=== PATIENT | female | born 1955 | race Caucasian/White ===

== ENCOUNTER 2018-03-10 09:43 | Inpatient (IN) | payer BC, OTHER ==
[2018-03-10 10:26] LABS: Bilirubin Negative (Negative); Blood, Urine Negative (Negative); Clarity CLOUDY (Clear); Glucose, Urine (Dipstick) Negative (Negative); Leukocyte Negative (Negative); Nitrite Negative (Negative); Protein, Urine (Dipstick) 30 mg/dL (Neg-Trace); Specific Gravity, Urine 1.019 (1.002-1.036); Urobilinogen 0.2 mg/dL (0.2-1.0)
[2018-03-10 10:30] LABS: Bacteria/HPF None Seen HPF (None Seen); Hyaline Casts/LPF 4-6 HYALINE CAST LPF (0-3 Hyaline); Pathc Cast-AUWi Flag 0.43 (0-2.49); RBC/HPF 0-3 HPF (0-3); Squamous Epithelial 0-3 HPF (0-3); WBC/HPF 0-3 HPF (0-3)
[2018-03-10 10:44] LABS: Calc. Creatinine Clearance 0 mL/min (70-130)
[2018-03-10 10:48] LABS: Crystals/HPF 1+ AMORPH PHOS HPF (Negative); Renal Epithelial None Seen HPF (0-3); Transitional Epithelial NONE SEEN HPF (0-3)
[2018-03-10] MEDS ORDERED: metroNIDAZOLE 500 MG/100 ML BAG ONE (11:39)
--- NOTE | 2018-03-10 11:43 | CT ---
CT ABDOMEN AND PELVIS WITH IV CONTRAST: HISTORY: Abdominal pain, ulcerative colitis. FINDINGS: The lung bases are clear. There is free air in the abdomen. A small amount of free fluid is seen in the lower abdomen and pelvis. The liver, spleen, pancreas, adrenal glands, and right kidney are nor mal. There is a 5.5 cm cortical cyst arising from the left kidney. No calcified gallstones are seen . The small bowel loops are not abnormally dilated. Uterus is present. There is thrombus of the wall of the rectosigmoid which may be due to wall thickening or incomplete distention. There are vascular calcifications without evidence of aneurysmal dilatation of the abdominal aorta. There are degenera tive changes in the spine. IMPRESSION: 1. Pneumoperitoneum and a small amount of free fluid in the abdomen and pelvis. 2. Left renal cyst. Discussed over the telephone with ER physician, Dr. Shearer at 11:20 a.m. HEIDI REHMAN POS: KIM
[2018-03-10 11:48] LABS: Base Excess-Venous -1.8 mmol/L (0 (+/- 2.5)); Bicarbonate (HCO3v) 23.9 mmol/L (1.0-85.0); CO2 Tension (PvCO2) 43.3 mmHg (41.0-51.0); Calcium, Ionized 1.07 mmol/L (1.12-1.32); Hemoglobin - Calc 10.6 g/dL (12.0-18.0); O2 Tension (PvO2) 21.7 mmHg (35.0-45.0); Potassium 3.9 mmol/L (3.4-4.7); T. Carbon Dioxide 25.2 mmol/L (1.0-85.0); pH (Venous) 7.349 (7.35-7.45); vO2 Saturation-calc 33.5 % (94-98)
[2018-03-10 12:12] LABS: Band 25 % (5-11); Hemoglobin 10.1 g/dL (12.0-16.0); Hypochromia SLIGHT = 6-15 cells (100X) (0-5/hpf); Large Platelets SLIGHT; Lymphocytes 4 % (21-51); MDiff Complete? YES; Mean Corpuscular HGB CONC 33.7 g/dL (32.0-36.0); Mean Corpuscular Hemoglobin 32.2 pg (27.0-31.0); Mean Corpuscular Volume 95.4 fL (78.0-98.0); Monocytes 5 % (0-10); Neutrophil 66 % (42-75); PLT Morphology Comment PLT clumps seen-ADEQ; Platelet Count 452 thou/uL (130-400); Polychromasia SLIGHT = 2-3 cells (100X) (0-2/hpf); RBC Distribution Width 13.1 % (11.5-14.5); Red Blood Cell (RBC) Count 3.13 mill/uL (4.20-5.40); Vacuoles SLIGHT; White Blood Cell (WBC) Count 13.8 thou/uL (4.8-10.8)
[2018-03-10] MEDS ORDERED: Acetaminophen 1,000 MG in Premix Bag 1 BAG IVPB SCH (12:30)
[2018-03-10] MEDS ORDERED: PHENYLEPHRINE-NS 100 MCG/ML 10 ML SYRINGE ONE (13:25)
[2018-03-10] MEDS ORDERED: Lidocaine 1% PF 5 ML VIAL ONE (13:25)
[2018-03-10] MEDS ORDERED: PROPOFOL 200 MG/20 ML VIAL ONE (13:25)
[2018-03-10] MEDS ORDERED: Ketorolac Tromethamine 30 MG/ML VIAL ONE ×2 (13:25→13:28)
[2018-03-10] MEDS ORDERED: Hydrocortisone Sod Succ/PF 100 mg/2 ml Vial ONE (13:25)
[2018-03-10] MEDS ORDERED: Glycopyrrolate 0.2 MG/ML 5 ML SYRINGE ONE (13:25)
[2018-03-10] MEDS ORDERED: Ondansetron HCl/PF 4 MG/2 ML Vial ONE (13:25)
[2018-03-10] MEDS ORDERED: Fentanyl 100 MCG/2 ML VIAL ONE ×4 (13:31→18:17)
--- NOTE | 2018-03-10 13:35 | HP ---
DATE OF ADMISSION: 03/10/2018 REQUESTING PHYSICIAN: Paola Shearer MD ATTENDING SURGEON: Jcarlos Cyr DO HISTORY OF PRESENT ILLNESS: The patient is a 62-year-old woman, who has a history of ulcer ative colitis, who has been having a flare for the last 2 months. The patient also has a history of osteoarthritis, which she takes medications for. The patient therefore takes frequent steroids and n onsteroidals. She presented to the emergency department with a 1-day history of sudden acute onset o f severe abdominal pain. She denies any nausea or vomiting, and her diarrhea related to her UC was u nchanged. She underwent evaluation and examination here and was noted to have pneumoperitoneum likel y from a duodenal source, but it was unclear. Regardless, we were asked to evaluate the patient for surgical intervention. The patient denies fevers and was otherwise in her normal state of health. ALLERGIES: CECLOR, LORTAB, and CODEINE. CURRENT MEDICATIONS: Tylenol, albuterol, alendronate, Imuran, calcium, gabapentin, magnesium, Meloxi cam, prednisone, psyllium, Spiriva, Symbicort, tramadol, trazodone, and a multivitamin. PAST MEDICAL HISTORY: COPD, ulcerative colitis, osteoarthritis, and sleep apnea. PAST SURGICAL HISTORY: Ray resection of the right index finger, laminectomy of multiple levels, and tubal ligation. SOCIAL HISTORY: The patient lives independently. She denies drug, alcohol, or tobacco use. REVIEW OF SYSTEMS: A 10-point review of systems is negative, unless otherwise stated. PHYSICAL EXAMINATION: VITAL SIGNS: Blood pressure 103/53, heart rate 89, respirations 16, oxygen saturation 95% on room ai r, and temperature is 98.8. GENERAL: The patient is resting comfortably in bed. She appears in no distress. She is awake, aler t, and oriented x3. [place] coma scale is 15. HEENT: Head is normocephalic, atraumatic. Eyes: Extraocular motion intact, PERRLA bilaterally. Ea rs are atraumatic without discharge. Oropharynx is clear. Nose is atraumatic without discharge. NECK: Nontender. Trachea is midline. No JVD, no lymphadenopathy. LUNGS: Clear to auscultation with good inspiratory and expiratory effort, though the patient does co mplain of abdominal pain with deep inspiration. HEART: Regular rate and rhythm. ABDOMEN: Soft, flat with generalized tenderness to palpation, more so on the right side. PELVIS: Stable. EXTREMITIES: Neurovascularly intact x4. Strength is 5/5. BACK: Atraumatic and nontender. LABORATORY FINDINGS: White blood cell count 13.8, hemoglobin 10.1, hematocrit 29.9, platelets 452, b ands 25. Sodium 146, CO2 of 16, BUN 10, creatinine 0.46, total bilirubin 0.2, total protein 1.9, alb umin 1.2, alkaline phosphatase 18, AST 5, ALT less than 7. Lactic acid 1.0. Urinalysis is negative for rbc's or wbc's. RADIOGRAPHIC FINDINGS: CT of the abdomen and pelvis with IV contrast shows pneumoperitoneum and a sm all amount of free fluid in the abdomen and pelvis. Incidental finding of a left renal cyst. ASSESSMENT AND PLAN: 1. Acute abdominal pain. 2. Perforated viscus. Plan will be to take the patient to the operating room for exploratory laparotomy and associated proc edures. The patient was consented for procedures ranging from repair of small perforated ulcer to co lectomy. The patient will also have an NG tube and Dobbhoff placement in the operating room. The pa tient will postoperatively be moved to the critical care unit for close observation. The evaluation and examination were done with Dr. Cyr in the emergency department.
[2018-03-10 14:18] LABS: Chloride 104 mmol/L (98-107); Potassium 4.1 mmol/L (3.5-5.1); Sodium 135 mmol/L (136-145)
[2018-03-10 14:19] LABS: Anion Gap 11 mmol/L (10-20); Carbon Dioxide 24 mmol/L (23-31)
[2018-03-10 14:20] LABS: BUN (Urea Nitrogen) 23 mg/dL (9.8-20.1); Estimated GFR-MDRD 41
[2018-03-10 14:21] LABS: Bilirubin, Total 0.6 mg/dL (0.2-1.2); Calcium 8.2 mg/dL (7.8-10.44); Glucose 109 mg/dL (80-115); Protein, Total 5.2 g/dL (6.0-8.3)
[2018-03-10 14:22] LABS: Albumin 3.1 g/dL (3.4-4.8); Globulin 2.1 g/dL (2.4-3.5)
[2018-03-10 14:23] LABS: Alkaline Phosphatase 47 U/L (40-150)
[2018-03-10 14:24] LABS: ALT (SGPT) 11 U/L (8-55); AST (SGOT) 9 U/L (5-34)
[2018-03-10] MEDS ORDERED: Midazolam HCl 2 mg/2 ml Vial ONE (14:46)
[2018-03-10] MEDS ORDERED: ISOVUE-370 76%-LOCM 1 ML ONE (14:54)
[2018-03-10] MEDS ORDERED: Bupivacaine/Epinephrine 0.25% 30 ML VIAL ONE (14:56)
[2018-03-10] MEDS ORDERED: HYDROmorphone 0.5 MG/0.5 ML SYRINGE ONE ×2 (15:09→19:26)
[2018-03-10] MEDS ORDERED: Clindamycin/D5W 900 mg/50 ml Premix Bag ONE (15:54)
[2018-03-10] MEDS ORDERED: Promethazine HCl 25 MG/ML VIAL IM PRN ×2 (19:18→20:47)
[2018-03-10] MEDS ORDERED: Promethazine HCl 25 MG/ML VIAL SLOW IVP PRN (19:18)
[2018-03-10] MEDS ORDERED: Ondansetron HCl/PF 4 MG/2 ML Vial IVP PRN ×2 (19:18→20:47)
--- NOTE | 2018-03-10 19:48 | RAD ---
KUB: 03/10/18 COMPARISON: None. HISTORY: Evaluate Dobhoff tube. FINDINGS/IMPRESSION: Evaluation is markedly limited secondary to significant motion artifact. There is curvilinear radiopa que tubing overlying the imaged lower pelvis. There is also tubing overlying the midline abdomen in t he left upper quadrant, likely representing the Dobhoff tube. This may be within an enlarged stomach or could be in the proximal small bowel. Perhaps repeat imaging with decreased patient motion could b renetta assess the Dobhoff tube. POS: KIM
[2018-03-10] MEDS ORDERED: Ondansetron ODT 4 MG TAB PO PRN (20:47)
[2018-03-10] MEDS ORDERED: diphenhydrAMINE 50 MG/ML VIAL IVP PRN (20:47)
[2018-03-10] MEDS ORDERED: Communication Order-Pharmacy FS SCH (20:47)
[2018-03-10] MEDS ORDERED: diphenhydrAMINE 25 MG CAP PO PRN (20:47)
[2018-03-10] MEDS ORDERED: diphenhydrAMINE 50 MG/ML VIAL IM PRN (20:47)
[2018-03-10] MEDS ORDERED: Dextrose 5% in Water 1,000 ML IV PRN (20:47)
[2018-03-10] MEDS ORDERED: hydrALAZINE 20 MG/ML VIAL SLOW IVP PRN (20:47)
[2018-03-10] MEDS ORDERED: Naloxone HCl 0.4 mg/ml Vial IV PRN (20:47)
[2018-03-10] MEDS ORDERED: Dextrose 50% Abboject 50 ML SYRINGE SLOW IVP PRN (20:47)
[2018-03-10] MEDS: HYDROmorphone 10 mg/100 ml CADD IVPB PRN (21:06)
[2018-03-10] MEDS: MEROPENEM 1 GM/50 ML 1 GM in Premix Bag 1 BAG IVPB SCH (21:55)
[2018-03-10] MEDS: Lactated Ringer's 1,000 ML IV SCH (21:55)
[2018-03-10] MEDS: Hydrocortisone Sod Succ/PF 100 mg/2 ml Vial IVP SCH (21:56)
[2018-03-10] MEDS: Famotidine/PF 20 mg/2ml Vial SLOW IVP SCH (21:56)
[2018-03-10 22:17] VITALS: BMI 34.9
--- NOTE | 2018-03-10 22:31 | OP ---
DATE OF OPERATION: 03/10/2018 PREOPERATIVE DIAGNOSES: 1. Perforated viscus. 2. Acute peritonitis secondary to #1. 3. Severe sepsis. POSTOPERATIVE DIAGNOSES: 1. Perforated viscus. 2. Acute peritonitis secondary to #1. 3. Severe sepsis. 4. Perforated sigmoid colon of undetermined etiology. OPERATIONS PERFORMED: 1. Exploratory laparotomy. 2. Sigmoidectomy with end colostomy. 3. Abdominal washout and drainage of pelvic abscess. 4. Placement of feeding nasojejunal tube. SURGEON: Jcarlos Cyr D.O. ANESTHESIA: General endotracheal. ESTIMATED BLOOD LOSS: 100 mL FLUIDS GIVEN: 1500 mL crystalloids. URINARY OUTPUT: 250 mL COUNTS: Sponge and instrument count certified as correct x2. COMPLICATIONS: None apparent. INDICATIONS FOR PROCEDURE: A 62-year-old woman with history of ulcerative colitis on high dose chronic glucocorticoid therapy as well as Imuran. The patient presented with a sudden onset sev ere abdominal pain of 48-hour duration. This is associated now with hypotension requiring large volu me fluid resuscitation in the emergency department. CT scan of the abdomen and pelvis was obtained w hich revealed a pneumoperitoneum, etiology uncertain. Clinical examination was consistent with sever e sepsis and acute peritonitis. The patient was brought to the operating room for exploration. DESCRIPTION OF PROCEDURE: Informed consent obtained from the patient who was brought to the operatin g room and placed in spine position. Following general anesthesia, Kunz catheter was inserted and p laced bedside drain. A nasogastric tube was inserted and placed to wall suction. Abdomen was steril chelsie prepped and draped in usual fashion. Midline incision was made using #10 scalpel. The incision was carried through subcutaneous tissues maintaining hemostasis using thermocautery. Fascia was inci sed in midline exposing the peritoneum beneath which was grasped x2 with hemostats. Peritoneal cavit y was sharply entered using Metzenbaum scissors. Incision was then extended superiorly and inferiorl y. Bookwalter retractor was put in place to gain exposure. Large amount of cloudy ascitic fluid was evacuated from the peritoneal cavity using suction. Small bowel was then run from ligament of Treit z down to terminal ileum. Although I did not find any pathology with respect to the small bowel, the re was extensive amount of fibrinous exudates in the mesentery of small intestine. Large intestine w as then inspected from the cecum through the ascending, transverse, descending colon down to the leve l of the sigmoid colon where a 3-mm perforation is noted in the lateral aspect of the sigmoid colon. There was a slow leak of liquid stool from this area. Contamination was controlled using a figure-o f-eight stitch of 2-0 silk. Large amount of purulent pus was evacuated from the pelvis after culture s were taken. The abdominal cavity was then copiously irrigated clear with saline solution. I palpated the liver f ree of any masses. Normal gallbladder noted in the usual anatomic location devoid of stones. Av ect atic spleen was noted in the left upper quadrant. No masses palpated. Previous nasogastric tube was palpated within the gastric lumen. At this juncture, feeding nasojejunal tube was inserted by Nieves prakash, tip of which was palpated myself within the gastric lumen. I then manipulated the tip of this catheter into proximal small bowel without resistance. I decided to proceed with sigmoidectomy due to this patient's known history of chronic steroid therapy. I suspected that washout of this suspect ed perforated diverticulum may fail conservative management. Especially since the patient has been k nown with ulcerative colitis of many years, malignancy could not be excluded. Therefore, I decided t o proceed with a sigmoidectomy. At this juncture, the left colon was mobilized along the white line of Toldt. I continued dissection towards the pelvis. I then made a rent through the mesorectum just before the peritoneal reflection. Through this, a contour stapler was then introduced and the bowel was divided. A reload of the contour stapler was then used to divide the bowel at the junction of t he sigmoid colon and descending colon. This was done after a rent was made in the descending colon m esentery. Mesentery of the specimen itself was sterilely divided using the LigaSure device with good hemostasis. This was passed off the operative field for onward transmission to pathology. Finding no other pathology, exploration was terminated. A core incision was made in the left lower quadrant using a #10 scalpel. The incision was carried down to the level of the fascia. A crucifix incision was made on the fascia. I then introduced a tonsil clamp through this. This was advanced into the p eritoneal cavity. This defect was dilated to 3 fingerbreadths. A [place] forceps was then introduce d into the peritoneal cavity through this core defect grasping the staple end of the descending colon which was pulled through and secured within the abdominal cavity using 3-0 silk suture at 3 points. All sponges and instruments were removed and accounted for. I then placed 2 stay sutures at both ap ices of the rectal stump using 2-0 Prolene. I placed one sheet of Seprafilm in the deep pelvis and r eturned small bowel to normal anatomic location. Another sheet of Seprafilm was placed over the smal l bowel before omentum was drawn over the remainder of the viscera. Fascia was approximated in the m idline using a running stitch of #1 single stranded PDS. Subcutaneous tissues were pulse lavaged wit h 3 liters of sterile saline. With fresh gown, gloves, subcutaneous tissues were approximated using interrupted sutures of 2-0 Vicryl. Skin incision was closed using running stitch of 3-0 Monocryl sut ure in subcuticular fashion. Dermabond was applied over the incision. I then turned my attention to the ostomy site. Staple end of the bowel was excised and a functional Noelle colostomy was perfecte d using interrupted sutures of 2-0 chromic. Ostomy appliance was then put in place. Patient tolerat ed the operation without any apparent complication and was returned to recovery room in satisfactory condition.
[2018-03-10] MEDS: Ketorolac Tromethamine 30 MG/ML VIAL IVP SCH (23:52)
[2018-03-11 05:25] LABS: Anion Gap 10 mmol/L (10-20); BUN (Urea Nitrogen) 17 mg/dL (9.8-20.1); Calc. Creatinine Clearance 94 mL/min (70-130); Calcium 8.2 mg/dL (7.8-10.44); Carbon Dioxide 28 mmol/L (23-31); Chloride 104 mmol/L (98-107); Estimated GFR-MDRD 64; Glucose 131 mg/dL (80-115); Magnesium 2.2 mg/dL (1.6-2.6); Phosphorus 3.4 mg/dL (2.3-4.7); Potassium 4.6 mmol/L (3.5-5.1); Sodium 137 mmol/L (136-145)
[2018-03-11] MEDS: Hydrocortisone Sod Succ/PF 100 mg/2 ml Vial IVP SCH ×3 (05:47→22:15)
[2018-03-11] MEDS: Lactated Ringer's 1,000 ML IV SCH ×3 (05:47→18:23)
[2018-03-11] MEDS: Acetaminophen 1,000 MG in Premix Bag 1 BAG IVPB SCH ×4 (05:48→18:08)
[2018-03-11] MEDS: MEROPENEM 1 GM/50 ML 1 GM in Premix Bag 1 BAG IVPB SCH ×3 (05:48→22:21)
[2018-03-11] MEDS: Ketorolac Tromethamine 30 MG/ML VIAL IVP SCH ×3 (05:48→18:09)
[2018-03-11 06:00] LABS: Band 45 % (5-11); Elliptocytes SLIGHT = 2-5 cells (100X) (0-1/hpf); Hemoglobin 9.9 g/dL (12.0-16.0); Lymphocytes 2 % (21-51); MDiff Complete? YES; Mean Corpuscular HGB CONC 32.2 g/dL (32.0-36.0); Mean Corpuscular Hemoglobin 31.2 pg (27.0-31.0); Mean Corpuscular Volume 96.8 fL (78.0-98.0); Mean Platelet Volume 6.4 fL (7.4-10.4); Metamyelocyte 1 % (0-0); Monocytes 4 % (0-10); Neutrophil 48 % (42-75); PLT Morphology Comment Appears Increased; Platelet Count 462 thou/uL (130-400); Red Blood Cell (RBC) Count 3.16 mill/uL (4.20-5.40); White Blood Cell (WBC) Count 11.6 thou/uL (4.8-10.8)
[2018-03-11] MEDS: Famotidine/PF 20 mg/2ml Vial SLOW IVP SCH ×2 (09:06→22:12)
[2018-03-11] MEDS: Enoxaparin Sodium 40 MG/0.4 ML SYRINGE SC SCH ×2 (09:08→12:20)
[2018-03-11] MEDS ORDERED: Ipratropium Bromide 2.5 ml Neb NEB PRN (13:06)
[2018-03-11] MEDS: Mometasone 100 MCG HFA INHALER INH SCH (19:30)
[2018-03-11] MEDS: traZODone HCl 50 MG TAB PO SCH (22:12)
[2018-03-11] MEDS: Gabapentin 300 MG CAP PO SCH (22:12)
[2018-03-11] MEDS: azaTHIOprine 50 MG TAB PO SCH (22:12)
[2018-03-12] MEDS: Ketorolac Tromethamine 30 MG/ML VIAL IVP SCH ×5 (01:07→23:09)
[2018-03-12] MEDS: Acetaminophen 1,000 MG in Premix Bag 1 BAG IVPB SCH ×5 (01:10→18:53)
[2018-03-12] MEDS: Lactated Ringer's 1,000 ML IV SCH ×3 (05:40→23:17)
[2018-03-12] MEDS ORDERED: Acetaminophen 1,000 MG in Premix Bag 1 BAG IVPB SCH ×2 (06:30→22:30)
[2018-03-12] MEDS: Hydrocortisone Sod Succ/PF 100 mg/2 ml Vial IVP SCH ×3 (06:32→23:04)
[2018-03-12] MEDS: MEROPENEM 1 GM/50 ML 1 GM in Premix Bag 1 BAG IVPB SCH ×3 (06:37→22:42)
[2018-03-12] MEDS: Mometasone 100 MCG HFA INHALER INH SCH ×2 (07:07→19:10)
[2018-03-12] MEDS: Gabapentin 300 MG CAP PO SCH ×2 (10:41→22:32)
[2018-03-12] MEDS: Lactinex Tablet PO SCH (10:41)
[2018-03-12] MEDS: azaTHIOprine 50 MG TAB PO SCH ×2 (10:42→22:32)
[2018-03-12] MEDS: Famotidine/PF 20 mg/2ml Vial SLOW IVP SCH ×2 (10:42→22:33)
[2018-03-12] MEDS: HYDROmorphone 10 mg/100 ml CADD IVPB PRN (11:10)
--- NOTE | 2018-03-12 15:25 | PRG-2 ---
DATE OF SERVICE: 03/12/2018 SUBJECTIVE: This is a 62-year-old woman with history of ulcerative colitis, status post exploratory laparotomy, sigmoidectomy with end colostomy, abdominal washout and drainage of pelvic abscess, place ment of feeding nasojejunal tube due to perforated viscus, acute peritonitis resulting in severe seps is. The patient is doing much better today and is motivated to get out of bed and walk. Reports pain has been well controlled and has no new complaints. She has been n.p.o. OBJECTIVE: VITAL SIGNS: Temperature 97.6, pulse 86, respirations 18, 95% on room air, 134/86 blood pressure. LABORATORY DATA: No new labs today. Microbiology report shows preliminary E. coli from abdominal fl uid. Blood cultures preliminary no growth at 48 hours. PHYSICAL EXAMINATION: GENERAL: Patient in no acute distress, resting comfortably in bed. HEENT: Normocephalic, atraumatic. Nasojejunal and nasogastric tubes in place. LUNGS: Clear to auscultation bilaterally, no increased work of breathing. HEART: Regular rate and rhythm. No murmur. ABDOMEN: Soft, appropriately tender, wounds healing well. Colostomy site is edematous as expected, but healing well and as expected. ASSESSMENT: 1. Status post exploratory laparotomy with sigmoidectomy with end colostomy, abdominal washout and d rainage of pelvic abscess, placement of feeding nasojejunal tube, postop day #2. 2. History of ulcerative colitis. 3. Perforated viscus, sigmoid colon with resulting in acute peritonitis, resolved. 4. Normocytic anemia, stable. PLAN: We will continue to monitor labs. The patient is healing well and was encouraged to work with physical therapy and occupational therapy for recovery. Nasogastric tube was removed in the room. Nasojejunal feeding tube was put in place and retaped. The patient moved to clear liquids as tolerat ed along with Ensure supplements. Continue current pain management regimen. The patient was seen and examined with Dr. Cyr who helped formulate the plan as noted above and is in agreement.
[2018-03-12 17:33] LABS: Hemoglobin 6.8 g/dL (12.0-16.0); Mean Corpuscular HGB CONC 32.4 g/dL (32.0-36.0); Mean Corpuscular Hemoglobin 31.3 pg (27.0-31.0); Mean Corpuscular Volume 96.4 fL (78.0-98.0); Mean Platelet Volume 6.2 fL (7.4-10.4); Platelet Count 446 thou/uL (130-400); RBC Distribution Width 12.9 % (11.5-14.5); Red Blood Cell (RBC) Count 2.18 mill/uL (4.20-5.40); White Blood Cell (WBC) Count 11.7 thou/uL (4.8-10.8)
[2018-03-12 17:38] LABS: INR-International Normal Ratio 1.2; PTT 29.5 SEC (22.9-36.1)
[2018-03-12 17:49] LABS: Band 29 % (5-11); Eosinophils 2 % (0-10); Lymphocytes 3 % (21-51); MDiff Complete? YES; Monocytes 2 % (0-10); Neutrophil 64 % (42-75); PLT Morphology Comment Appears Increased; Polychromasia SLIGHT = 2-3 cells (100X) (0-2/hpf)
[2018-03-12 17:55] LABS: CKMB 0.7 ng/mL (0-6.6); Troponin I Less than 0.010 ng/mL (< 0.028)
[2018-03-12] MEDS ORDERED: Sodium Chloride 0.9% 500 ML IV SCH (18:00)
[2018-03-12] MEDS ORDERED: Lactated Ringer's 500 ML IV SCH (18:00)
[2018-03-12 18:16] LABS: Anion Gap 13 mmol/L (10-20); BUN (Urea Nitrogen) 17 mg/dL (9.8-20.1); Calc. Creatinine Clearance 88 mL/min (70-130); Calcium 7.7 mg/dL (7.8-10.44); Carbon Dioxide 21 mmol/L (23-31); Chloride 106 mmol/L (98-107); Estimated GFR-MDRD 60; Glucose 133 mg/dL (80-115); Magnesium 2.3 mg/dL (1.6-2.6); Phosphorus 1.5 mg/dL (2.3-4.7); Potassium 3.6 mmol/L (3.5-5.1); Sodium 136 mmol/L (136-145)
[2018-03-12] MEDS ORDERED: Potassium Phosphate 30 MMOL in Sodium Chloride 0.9% 250 ML 250 ML IVPB SCH ×2 (18:30→22:30)
[2018-03-12] MEDS: traZODone HCl 50 MG TAB PO SCH (22:39)
[2018-03-13 05:48] LABS: Anion Gap 10 mmol/L (10-20); BUN (Urea Nitrogen) 20 mg/dL (9.8-20.1); Calc. Creatinine Clearance 102 mL/min (70-130); Calcium 7.8 mg/dL (7.8-10.44); Carbon Dioxide 26 mmol/L (23-31); Chloride 104 mmol/L (98-107); Estimated GFR-MDRD 71; Glucose 119 mg/dL (80-115); Magnesium 2.4 mg/dL (1.6-2.6); Phosphorus 2.3 mg/dL (2.3-4.7); Potassium 4.3 mmol/L (3.5-5.1); Sodium 136 mmol/L (136-145)
[2018-03-13] MEDS: Hydrocortisone Sod Succ/PF 100 mg/2 ml Vial IVP SCH ×3 (06:21→21:41)
[2018-03-13] MEDS: Acetaminophen 1,000 MG in Premix Bag 1 BAG IVPB SCH ×3 (06:23→17:57)
[2018-03-13] MEDS: MEROPENEM 1 GM/50 ML 1 GM in Premix Bag 1 BAG IVPB SCH ×3 (06:25→21:41)
[2018-03-13] MEDS: Lactated Ringer's 1,000 ML IV SCH ×2 (06:30→17:56)
[2018-03-13] MEDS: Mometasone 100 MCG HFA INHALER INH SCH ×2 (06:34→19:35)
[2018-03-13 06:44] LABS: Band 19 % (5-11); Hemoglobin 7.5 g/dL (12.0-16.0); Hypochromia SLIGHT = 6-15 cells (100X) (0-5/hpf); Lymphocytes 5 % (21-51); MDiff Complete? YES; Mean Corpuscular HGB CONC 32.9 g/dL (32.0-36.0); Mean Platelet Volume 6.4 fL (7.4-10.4); Monocytes 2 % (0-10); Neutrophil 74 % (42-75); PLT Morphology Comment Appears Increased; Platelet Count 414 thou/uL (130-400); RBC Distribution Width 13.2 % (11.5-14.5); Red Blood Cell (RBC) Count 2.43 mill/uL (4.20-5.40); White Blood Cell (WBC) Count 10.4 thou/uL (4.8-10.8)
[2018-03-13] MEDS: Famotidine/PF 20 mg/2ml Vial SLOW IVP SCH ×2 (08:17→21:41)
[2018-03-13] MEDS: Gabapentin 300 MG CAP PO SCH ×2 (10:49→21:41)
[2018-03-13] MEDS: Lactinex Tablet PO SCH (10:49)
[2018-03-13] MEDS: azaTHIOprine 50 MG TAB PO SCH ×2 (10:49→21:41)
[2018-03-13] MEDS: Enoxaparin Sodium 40 MG/0.4 ML SYRINGE SC SCH (12:42)
--- NOTE | 2018-03-13 18:41 | PRG ---
DATE OF SERVICE: 03/13/2018 SUBJECTIVE: Ms. Liu is a 62-year-old woman who is postoperative day #3 status post Olu's proce dure. The patient had a bout of a large output bloody drainage from the Yaw-Baker drain this mor jason, which was spontaneous. This was associated with low blood pressure which responded to fluids a nd blood transfusion. At the time of my evaluation, patient is awake and alert. Reports adequate pa in control. She reports incisional pain but denies any nausea or vomiting. Urinary output is curren tly adequate. OBJECTIVE: VITAL SIGNS: Includes blood pressure is 114/80, pulse is 94, respiratory rate is 18, temperature is 97.9 degrees Fahrenheit, oxygen saturation 98% on room air. HEART: Reveals regular rate and rhythm, no murmurs or gallops auscultated. CHEST: Clear to auscultation bilaterally. Her breathing is regular and unlabored. ABDOMEN: Soft, nondistended. Her incision is intact, clean, and dry. She has no rebound tenderness present. Yaw-Baker drainage currently is low volume serosanguineous fluid. Colostomy is viable with gas, no stool. LABORATORY DATA: CBC with 10,400 white blood cells, hemoglobin and hematocrit 7.5 and 22.8 respectiv chelsie. Platelet count is 414,000. Metabolic profile: Sodium 136, potassium is 4.3, chloride is 104, bicarbonate 26, BUN is 20, creatinine 0.82, glucose is 119. Magnesium 2.4. Phosphorus is 2.3. IMPRESSION: 1. Postop day #3, status post Olu's procedure. The patient is otherwise hemodynamically stable . 2. Acute blood loss anemia. PLAN: 1. Transfuse the patient with 1 unit of packed red blood cells. 2. Increase activity as tolerated. Above findings and plan discussed with the patient who indicates understanding of the information giv en. I have answered her questions.
[2018-03-13] MEDS: traZODone HCl 50 MG TAB PO SCH (21:40)
[2018-03-14] MEDS: Acetaminophen 1,000 MG in Premix Bag 1 BAG IVPB SCH ×2 (00:20→05:54)
[2018-03-14] MEDS: Lactated Ringer's 1,000 ML IV SCH ×4 (00:23→23:30)
[2018-03-14] MEDS: MEROPENEM 1 GM/50 ML 1 GM in Premix Bag 1 BAG IVPB SCH ×3 (05:55→21:42)
[2018-03-14] MEDS: Hydrocortisone Sod Succ/PF 100 mg/2 ml Vial IVP SCH ×3 (05:55→21:42)
[2018-03-14] MEDS ORDERED: Alendronate Sodium 70 mg Tablet PO SCH (06:00)
[2018-03-14 07:51] LABS: #Eosinphils 0.1 thou/uL (0.0-0.7); #Lymphocytes 0.4 thou/uL (1.20-3.40); #Monocytes 0.7 thou/uL (0.11-0.59); #Neutrophils 5.6 thou/uL (1.40-6.50); %Basophils 0.3 % (0.0-1.0); %Eosinophils 1.3 % (0.0-10.0); %Lymphocytes 6.1 % (21.0-51.0); %Monocytes 9.7 % (0.0-10.0); %Neutrophils 82.7 % (42.0-75.0); Mean Corpuscular Hemoglobin 30.9 pg (27.0-31.0); Mean Corpuscular Volume 93.4 fL (78.0-98.0); Mean Platelet Volume 6.2 fL (7.4-10.4); Platelet Count 400 thou/uL (130-400); RBC Distribution Width 13.9 % (11.5-14.5); Red Blood Cell (RBC) Count 2.59 mill/uL (4.20-5.40); White Blood Cell (WBC) Count 6.8 thou/uL (4.8-10.8)
[2018-03-14] MEDS: Mometasone 100 MCG HFA INHALER INH SCH ×3 (07:59→19:15)
[2018-03-14] MEDS: Lactinex Tablet PO SCH (08:34)
[2018-03-14] MEDS: Famotidine/PF 20 mg/2ml Vial SLOW IVP SCH ×2 (08:34→21:41)
[2018-03-14] MEDS: Gabapentin 300 MG CAP PO SCH ×2 (08:35→21:41)
[2018-03-14] MEDS: azaTHIOprine 50 MG TAB PO SCH ×2 (08:35→21:41)
[2018-03-14 08:44] LABS: Anion Gap 10 mmol/L (10-20); BUN (Urea Nitrogen) 13 mg/dL (9.8-20.1); Calc. Creatinine Clearance 114 mL/min (70-130); Calcium 8.6 mg/dL (7.8-10.44); Carbon Dioxide 27 mmol/L (23-31); Chloride 106 mmol/L (98-107); Estimated GFR-MDRD 81; Glucose 115 mg/dL (80-115); Magnesium 2.2 mg/dL (1.6-2.6); Phosphorus 1.2 mg/dL (2.3-4.7); Potassium 4.1 mmol/L (3.5-5.1); Sodium 139 mmol/L (136-145)
[2018-03-14] MEDS ORDERED: Sodium Phosphate 30 MMOL, Admixture Fee 1 EACH in Sodium Chloride 0.9% 500 ML IVPB SCH (09:30)
[2018-03-14] MEDS: traMADol HCl 50 MG TAB PO PRN ×2 (10:17→16:58)
[2018-03-14] MEDS: Acetaminophen 500 MG TAB PO SCH ×3 (10:24→21:58)
--- NOTE | 2018-03-14 10:31 | PQF ---
CLINICAL DOCUMENTATION IMPROVEMENT CLARIFICATION FORM: ICD-10 Updated PLEASE DO AN ADDENDUM TO THE PROGRESS NOTE WITH ANY DOCUMENTATION UPDATES OR ADDITIONS AND CARRY THROUGH TO DC SUMMARY. THANK YOU. DATE: 03/14 ATTN : DR. CLEMENTE ANTOINE Please exercise your independent, professional judgment in responding to the clarification form. Clinical indicators are provided on the bottom of this form for your review. Please check appropriate box(s): [ x ] Acute Renal Failure (ARF) / Acute Kidney Injury (LANCE) [ ] Other Etiology or underlying conditions related to the diagnosis of ARF/ LANCE: [ ] Acute on Chronic Renal Failure please specify Stage of CKD (see below) [ ] Other diagnosis [ ] Unable to determine National Kidney Foundation Guidelines for CKD Staging Stage I Kidney damage with normal or increased GFR GFR > 90 Stage II Kidney damage with mildly decreased GFR GFR 60-89 Stage III Kidney damage with moderately decreased GFR GFR 30-59 Stage IV Kidney damage with severely decreased GFR GFR 16-29 Stage V Kidney failure GFR<15 ESRD End Stage Renal Disease On dialysis For continuity of documentation, please document condition throughout progress notes and discharge summary. Thank You. CLINICAL INDICATORS - SIGNS / SYMPTOMS / LABS BUN: 23 CR: 1.32 GFR: 41 (on admit, 03/10) 17 0.89 64 (03/11) 17 0.95 60 (03/12) 20 0.82 71 (03/13) 13 0.73 81 (03/14) RISK FACTORS: HYPOTENSION ON PRESENTATION TO ER 03/10 SEVERE SEPSIS (OP REPORT 03/10) PERFORATED VISCUS W/PERITONITIS (OP REPORT 03/10) TREATMENTS: LARGE VOLUME FLUID RESUSCITATION IN ER 03/10 (3L NS) EMERGENT SIGMOIDECTOMY W/END COLOSTOMY THANK YOU! Fernanda (This form is maintained as a part of the permanent medical record) 2015 [employer]. All Rights Reserved Fernanda Mina RN, BSN [email or web address] Office: [phone] [facility] HOSPITALChetan
--- NOTE | 2018-03-14 11:47 | EKG ---
Test Reason : CODE GREEN Blood Pressure : / mmHG Vent. Rate : 094 BPM Atrial Rate : 094 BPM P-R Int : 102 ms QRS Dur : 066 ms QT Int : 344 ms P-R-T Axes : 053 062 062 degrees QTc Int : 430 ms Sinus rhythm with short AR Nonspecific ST abnormality Abnormal ECG When compared with ECG of 10-MAR-2018 10:00, (Unconfirmed) No significant change was found Confirmed by ALTAGRACIA PALOMINO ([id number]) on 03/14/2018 11:47:02 AM Referred By: STAT Confirmed By:ALTAGRACIA PALOMINO
[2018-03-14] MEDS: traZODone HCl 50 MG TAB PO SCH (21:40)
[2018-03-15] MEDS ORDERED: Cepastat Lozenges 1 LOZ PO PRN (00:17)
[2018-03-15] MEDS ORDERED: Vicks VapoRub 50 gm Jar TOP PRN (00:18)
[2018-03-15] MEDS: traMADol HCl 50 MG TAB PO PRN ×3 (04:11→16:27)
[2018-03-15] MEDS: Acetaminophen 500 MG TAB PO SCH ×4 (04:11→21:53)
[2018-03-15] MEDS: Hydrocortisone Sod Succ/PF 100 mg/2 ml Vial IVP SCH (06:39)
[2018-03-15] MEDS: MEROPENEM 1 GM/50 ML 1 GM in Premix Bag 1 BAG IVPB SCH ×3 (06:42→21:54)
[2018-03-15] MEDS: Mometasone 100 MCG HFA INHALER INH SCH ×2 (07:34→18:55)
[2018-03-15] MEDS: azaTHIOprine 50 MG TAB PO SCH ×2 (09:00→21:51)
[2018-03-15] MEDS: Lactinex Tablet PO SCH (09:00)
[2018-03-15] MEDS: Gabapentin 300 MG CAP PO SCH ×2 (09:00→21:53)
[2018-03-15] MEDS: Famotidine/PF 20 mg/2ml Vial SLOW IVP SCH ×2 (09:01→21:52)
[2018-03-15] MEDS ORDERED: Furosemide 20 MG/2 ML VIAL SLOW IVP SCH ×2 (10:00→21:00)
[2018-03-15] MEDS: Lactated Ringer's 1,000 ML IV SCH (14:30)
--- NOTE | 2018-03-15 18:35 | PRG ---
DATE OF SERVICE: 03/15/2018 ATTENDING PHYSICIAN: Dr. Jcarlos Cyr. SUBJECTIVE: Ms. Liu is a 62-year-old woman, who is postoperative day #5, status post Olu's pro cedure. She has been stable on the surgical floor. Pain has been well controlled. Small bore feedi ng tube was discontinued yesterday and she was started on regular diet which she has been tolerating well. She is ambulating without assistance. OBJECTIVE: VITAL SIGNS: Temperature is 97.9, pulse 90, respirations 16, O2 sat 96% on room air, blood pressure 173/90. GENERAL: Well-nourished, well-developed female, sitting up in bed, in no acute distress. HEENT: Atraumatic, normocephalic. CARDIOVASCULAR: Regular rate and rhythm. PULMONARY: Bilateral breath sounds clear. Respirations even and unlabored. ABDOMEN: Soft, nondistended. Surgical incision is clean, dry, and intact. Ostomy is pink and healt hy appearing with small amount of liquid stool in appliance. NEUROLOGIC: GCS 15. Awake, alert, and oriented x3. ASSESSMENT: 1. Postoperative day #5, status post Olu's procedure. 2. Acute blood loss anemia, stable. 3. Small bore feeding tube with enteral feeds discontinued one day ago. The patient tolerating regu lar diet. PLAN: 1. Encourage ambulation. 2. Wound care ostomy nurse for teaching ostomy care. 3. Lasix today x2 doses. Monitor urine output. 4. Discontinue IV fluids. 5. Continue IV antibiotics. The patient was seen and examined with Dr. Cyr, who agrees with plan.
[2018-03-15] MEDS: Docusate 100 MG CAP PO SCH (21:52)
[2018-03-15] MEDS: traZODone HCl 50 MG TAB PO SCH (21:53)
[2018-03-16] MEDS: Acetaminophen 500 MG TAB PO SCH ×4 (04:03→21:05)
[2018-03-16] MEDS: traMADol HCl 50 MG TAB PO PRN ×4 (04:18→22:41)
[2018-03-16 05:51] LABS: Anion Gap 9 mmol/L (10-20); BUN (Urea Nitrogen) 12 mg/dL (9.8-20.1); Calc. Creatinine Clearance 114 mL/min (70-130); Calcium 7.6 mg/dL (7.8-10.44); Carbon Dioxide 32 mmol/L (23-31); Chloride 102 mmol/L (98-107); Estimated GFR-MDRD 81; Glucose 88 mg/dL (80-115); Magnesium 1.9 mg/dL (1.6-2.6); Phosphorus 1.8 mg/dL (2.3-4.7); Potassium 3.2 mmol/L (3.5-5.1); Sodium 140 mmol/L (136-145)
[2018-03-16] MEDS ORDERED: predniSONE 50 MG TAB PO SCH (06:00)
[2018-03-16] MEDS: Lactinex Tablet PO SCH (06:40)
[2018-03-16] MEDS: MEROPENEM 1 GM/50 ML 1 GM in Premix Bag 1 BAG IVPB SCH ×3 (06:40→21:03)
[2018-03-16] MEDS ORDERED: Potassium Phosphate 30 MMOL in Sodium Chloride 0.9% 500 ML IVPB SCH (06:45)
[2018-03-16] MEDS ORDERED: predniSONE 20 MG TAB PO SCH ×3 (08:00→16:00)
[2018-03-16] MEDS: Mometasone 100 MCG HFA INHALER INH SCH ×2 (08:04→19:24)
[2018-03-16 09:48] LABS: Hemoglobin 9.2 g/dL (12.0-16.0); Mean Corpuscular Volume 93.9 fL (78.0-98.0); Mean Platelet Volume 5.9 fL (7.4-10.4); Platelet Count 550 thou/uL (130-400); RBC Distribution Width 14.2 % (11.5-14.5); Red Blood Cell (RBC) Count 2.97 mill/uL (4.20-5.40); White Blood Cell (WBC) Count 15.2 thou/uL (4.8-10.8)
[2018-03-16 10:05] LABS: Band 39 % (5-11); Eosinophils 3 % (0-10); Lymphocytes 1 % (21-51); MDiff Complete? YES; Monocytes 4 % (0-10); Neutrophil 53 % (42-75); Nucleated RBC 1 % (0); PLT Morphology Comment Appears Adequate; RBC Morphology Normal
[2018-03-16] MEDS: Famotidine/PF 20 mg/2ml Vial SLOW IVP SCH ×2 (10:55→18:53)
[2018-03-16] MEDS: Gabapentin 300 MG CAP PO SCH ×2 (10:55→21:04)
[2018-03-16] MEDS: Docusate 100 MG CAP PO SCH ×2 (10:55→21:04)
[2018-03-16] MEDS: azaTHIOprine 50 MG TAB PO SCH ×2 (10:55→21:05)
--- NOTE | 2018-03-16 10:55 | PRG ---
DATE OF SERVICE: 03/16/2018 ATTENDING PHYSICIAN: Dr. Jcarlos Cyr SUBJECTIVE: Ms. Liu is a 62-year-old woman who is postoperative day #6 status post Olu's proce dure. She has been stable on the surgical floor. The pain has been well controlled. Small bore fee ding tube was discontinued 2 days ago and she was started on a regular diet. She has been tolerating that well. She is ambulating without assistance. Ostomy is now putting out liquid stool. OBJECTIVE: VITAL SIGNS: Temperature 98.2, pulse 93, respirations 18, O2 sat 92% on room air, blood pressure 103 /66. GENERAL: Well-nourished, well-developed female sitting up in bed in no acute distress. HEENT: Atraumatic, normocephalic. CARDIOVASCULAR: Regular rate and rhythm. Heart sounds normal. CHEST: Bilateral breath sounds clear. Respirations even and unlabored. ABDOMEN: Soft, nondistended. Surgical incision clean, dry, and intact. Ostomy pink and healthy constantino earing with liquid stool in appliance. NEUROLOGIC: GCS 15. Awake, alert, oriented x3. LABORATORY DATA: CBC: WBC 15.2, RBC 2.97, hemoglobin 9.2, hematocrit 27.9, platelets 550. Chemistr y: Sodium 140, potassium 3.2, chloride 102, carbon dioxide 32, BUN 12, creatinine 0.73. Phosphorus 1.8, magnesium 1.9. ASSESSMENT: 1. Postoperative day #6 status post Olu's procedure. 2. Acute blood loss anemia, stable. 3. Tolerating regular diet. 4. Ambulating without assistance. 5. Hypokalemia and hypophosphatemia. PLAN: 1. Continue to encourage ambulation. 2. Wound care, ostomy nurse following for ostomy care teaching. 3. Replace electrolytes. 4. Continue vitamin C and iron. 5. Add stool softener and MiraLax. The patient was seen and examined with Dr. Cyr who agrees with the plan.
[2018-03-16] MEDS: Ascorbic Acid 500 mg Chewable Tablet PO SCH ×2 (11:00→21:04)
[2018-03-16] MEDS: Ferrous Sulfate 325 MG TAB PO SCH ×2 (11:04→18:53)
[2018-03-16] MEDS: Polyethylene Glycol 3350 17 GM Packet PO SCH (11:05)
[2018-03-16] MEDS: predniSONE 20 MG TAB PO SCH (15:04)
[2018-03-16] MEDS: traZODone HCl 50 MG TAB PO SCH (21:05)
[2018-03-17] MEDS: traMADol HCl 50 MG TAB PO PRN ×3 (04:47→17:01)
[2018-03-17] MEDS: Acetaminophen 500 MG TAB PO SCH ×3 (04:47→17:01)
[2018-03-17] MEDS: predniSONE 20 MG TAB PO SCH ×2 (04:48→15:13)
[2018-03-17] MEDS: Lactinex Tablet PO SCH (04:48)
[2018-03-17] MEDS: MEROPENEM 1 GM/50 ML 1 GM in Premix Bag 1 BAG IVPB SCH (04:49)
[2018-03-17 05:07] LABS: #Eosinphils 0.1 thou/uL (0.0-0.7); #Lymphocytes 0.8 thou/uL (1.20-3.40); #Monocytes 0.7 thou/uL (0.11-0.59); %Basophils 0.1 % (0.0-1.0); %Eosinophils 0.6 % (0.0-10.0); %Lymphocytes 7.2 % (21.0-51.0); %Monocytes 6.7 % (0.0-10.0); %Neutrophils 85.4 % (42.0-75.0); Hemoglobin 7.9 g/dL (12.0-16.0); Mean Corpuscular HGB CONC 32.3 g/dL (32.0-36.0); Mean Corpuscular Hemoglobin 30.6 pg (27.0-31.0); Mean Corpuscular Volume 94.6 fL (78.0-98.0); Platelet Count 550 thou/uL (130-400); RBC Distribution Width 14.1 % (11.5-14.5); Red Blood Cell (RBC) Count 2.57 mill/uL (4.20-5.40); White Blood Cell (WBC) Count 10.5 thou/uL (4.8-10.8)
[2018-03-17 05:43] LABS: Anion Gap 8 mmol/L (10-20); BUN (Urea Nitrogen) 13 mg/dL (9.8-20.1); Calc. Creatinine Clearance 114 mL/min (70-130); Calcium 8.3 mg/dL (7.8-10.44); Carbon Dioxide 32 mmol/L (23-31); Chloride 102 mmol/L (98-107); Estimated GFR-MDRD 81; Glucose 114 mg/dL (80-115); Magnesium 2.2 mg/dL (1.6-2.6); Phosphorus 2.6 mg/dL (2.3-4.7); Sodium 138 mmol/L (136-145)
[2018-03-17] MEDS: Mometasone 100 MCG HFA INHALER INH SCH ×2 (06:52→18:30)
[2018-03-17] MEDS: Ferrous Sulfate 325 MG TAB PO SCH ×2 (08:06→17:02)
[2018-03-17] MEDS: Ascorbic Acid 500 mg Chewable Tablet PO SCH (08:06)
[2018-03-17] MEDS: Docusate 100 MG CAP PO SCH (08:06)
[2018-03-17] MEDS: azaTHIOprine 50 MG TAB PO SCH (08:06)
[2018-03-17] MEDS: Gabapentin 300 MG CAP PO SCH (08:06)
[2018-03-17] MEDS: Famotidine/PF 20 mg/2ml Vial SLOW IVP SCH (08:06)
[2018-03-17] MEDS: Polyethylene Glycol 3350 17 GM Packet PO SCH (08:07)
[2018-03-17 15:52] VITALS: BP 139/78; TEMP 97.7
--- NOTE | 2018-03-19 13:35 | DIS ---
DATE OF ADMISSION: 03/10/2018 DATE OF DISCHARGE: 03/17/2018 ADMISSION DIAGNOSES: 1. Acute abdominal pain. 2. Perforated viscus with pneumoperitoneum. DISCHARGE DIAGNOSES: 1. Status post exploratory laparotomy with sigmoidectomy, end colostomy, abdominal washout and drain age of pelvic abscess. 2. Perforated viscus, sigmoid colon, resulting in acute peritonitis, resolved. 3. Diverticulosis. 4. History of ulcerative colitis. 5. Normocytic anemia. CONSULTANTS: None. PROCEDURES: On 03/10/2018, exploratory laparotomy, sigmoidectomy with end colostomy, abdominal washo ut and drainage of pelvic abscess with Dr. Cyr. HOSPITAL COURSE: This is a 62-year-old female, who presented to [facility] with a chief complaint of abdominal pain. She was evaluated in the emergency room and found to have pneumoperitoneum. She was taken to the operating room emergently for exploratory laparotomy. The patient did well postope ratively and was managed on the general surgical floor until 03/12/2018 when she had a code green for decreased blood pressure and mentation associated with her Dilaudid [employer]. She responded to Narcan. The patient had additionally required a blood transfusion of 1 unit PRBC on 03/12/2018 and a second u nit on 03/13/2018 after which her hemoglobin stabilized. The patient continued to improve. She ambu lated with therapy and then individually. Her ostomy was functioning and she was tolerating a genera l diet and stable for discharge on 03/19/2018. She was restarted on her home medications prior [facility] with the exception of her home steroid which was at a reduced dose in an attempt to start wea jason her intermediate steroids. The patient was instructed to follow up with her GI physician for the re mainder of the steroid wean. DISCHARGE DISPOSITION: Home. DISCHARGE CONDITION: Fair. PHYSICAL EXAMINATION: VITAL SIGNS: Temperature 97.7, pulse 81, respirations 16, O2 sat 96% on room air, blood pressure 139 /78. GENERAL: Well-developed female, in no acute distress, resting in bed. PULMONARY: Normal work of breathing, symmetric rise. CARDIOVASCULAR: Regular rate and rhythm. GASTROINTESTINAL: Abdomen is soft, nontender, nondistended. Ostomy with some gas and liquid stool i n the bag. MUSCULOSKELETAL: Moves all extremities x4. NEUROLOGIC: No focal deficit is noted. DISCHARGE INSTRUCTIONS: Discharge instructions were provided to the patient who vocalized her unders tanding prior to discharge. All questions were answered prior to discharge. She did have the opport unity to work with wound care for changing the ostomy bag and appliance. She watched the ostomy vide o. The patient was instructed to keep her midline incision clean and dry. She should not lift anyth ing greater than 20 pounds. She should avoid baths or soaking in hot tubs or pools, but may shower. DISCHARGE MEDICATIONS: The patient was discharged on her home medications and provided additionally a prescription for Ultram 50 mg q.6 hours p.r.n. for pain. The patient's home prednisone dose was ad justed to 20 mg p.o. b.i.d. FOLLOWUP APPOINTMENTS: The patient is to follow up with her primary care provider in approximately 1 week. She is to follow up with her GI physician for ulcerative colitis and steroid wean. She is to follow up with Dr. Cyr in approximately 2 weeks for wound check. This is merely a summary of the patient's hospitalization. For more in depth information, please see her medical record in its entir ety.
== END 2018-03-17 19:05 | disposition home or self-care (01) | DRG 853 ==
LOC: ERS 09:43 → SDC 16:15 → CCU 19:01 → SJJU 03-11 15:50
PROVIDERS: ADMIT Surgery; ATTEND Surgery
PROC: 0DTN0ZZ Resection of Sigmoid Colon, Open Approach (ICD-10-PCS; principal; 2018-03-10)
PROC: 0D1M0Z4 Bypass Descending Colon to Cutaneous, Open Approach (ICD-10-PCS; 2018-03-10)
PROC: 30233N1 Transfusion of Nonautologous Red Blood Cells into Peripheral Vein, Percutaneous Approach (ICD-10-PCS; 2018-03-12)
DX: A41.9 Sepsis, unspecified organism (principal); K63.1 Perforation of intestine (nontraumatic); K51.818 Other ulcerative colitis with other complication; K51.914 Ulcerative colitis, unspecified with abscess; D62 Acute posthemorrhagic anemia; N17.9 Acute kidney failure, unspecified; R65.20 Severe sepsis without septic shock; M19.90 Unspecified osteoarthritis, unspecified site; E87.6 Hypokalemia; E83.39 Other disorders of phosphorus metabolism; J44.9 Chronic obstructive pulmonary disease, unspecified; G47.33 Obstructive sleep apnea (adult) (pediatric); Z79.52 Long term (current) use of systemic steroids
CPT/HCPCS: 36415; 36416; 36430; 51701; 74018; 74177; 80048; 80053; 81003; 81015; 82330; 82553; 82803; 83605; 83735; 84100; 84484; 85025; 85060; 85610; 85730; 86850; 86900; 86901; 87040; 87070; 87077; 87186; 87205; 88307; 90471; 90732; 93005; 93010; 94640; 94664; 94760; 96361; 96365; 96374; A4353; G0009; G8978-GP-CI; G8979-GP-CH; J0131; J0360; J0744; J1170; J1650; J1720; J1885; J1940; J2001; J2185; J2250; J2270; J2310; J2405; J2704; J3010; J3490; J7050; J7500; J7506; J7620; J7644; P9016; S0028

== ENCOUNTER 2018-03-30 20:55 | Observation (INO) | payer BC ==
[2018-03-30 21:21] LABS: Hemoglobin 12.2 g/dL (12.0-16.0); Mean Corpuscular HGB CONC 32.3 g/dL (32.0-36.0); Mean Corpuscular Volume 92.8 fL (78.0-98.0); Mean Platelet Volume 6.5 fL (7.4-10.4); Platelet Count 715 thou/uL (130-400); RBC Distribution Width 14.9 % (11.5-14.5); Red Blood Cell (RBC) Count 4.06 mill/uL (4.20-5.40); White Blood Cell (WBC) Count 15.7 thou/uL (4.8-10.8)
[2018-03-30 21:37] LABS: Band 7 % (5-11); Lymphocytes 12 % (21-51); MDiff Complete? YES; Monocytes 9 % (0-10); Neutrophil 72 % (42-75)
[2018-03-30 21:39] LABS: ALT (SGPT) 17 U/L (8-55); AST (SGOT) 14 U/L (5-34); Albumin 3.6 g/dL (3.4-4.8); Alkaline Phosphatase 85 U/L (40-150); Anion Gap 11 mmol/L (10-20); BUN (Urea Nitrogen) 18 mg/dL (9.8-20.1); Bilirubin, Total 0.6 mg/dL (0.2-1.2); Calc. Creatinine Clearance 0 mL/min (70-130); Calcium 9.6 mg/dL (7.8-10.44); Carbon Dioxide 27 mmol/L (23-31); Chloride 102 mmol/L (98-107); Estimated GFR-MDRD 58; Globulin 2.9 g/dL (2.4-3.5); Glucose 115 mg/dL (80-115); Lipase 31 U/L (8-78); Protein, Total 6.5 g/dL (6.0-8.3); Sodium 136 mmol/L (136-145)
[2018-03-31] MEDS ORDERED: Ondansetron HCl/PF 4 MG/2 ML Vial ONE ×2 (01:54→04:48)
[2018-03-31] MEDS ORDERED: Benzocaine 20% Spray 60 ML CAN ONE (04:08)
[2018-03-31] MEDS ORDERED: Pantoprazole 40 MG VIAL ONE (04:08)
[2018-03-31] MEDS ORDERED: Piperacillin/Tazobactam 3.375 GM VIAL ONE (04:08)
[2018-03-31] MEDS ORDERED: Lidocaine 2% Jelly 5 ML TUBE ONE (04:08)
[2018-03-31 04:44] LABS: Bilirubin Negative (Negative); Blood, Urine Negative (Negative); Clarity CLEAR (Clear); Glucose, Urine (Dipstick) Negative (Negative); Leukocyte Small (Negative); Nitrite Negative (Negative); Protein, Urine (Dipstick) Negative (Neg-Trace); Specific Gravity, Urine 1.037 (1.002-1.036); Urobilinogen 0.2 mg/dL (0.2-1.0); pH, Urine 6.5 (5.0-9.0)
[2018-03-31 04:47] LABS: Bacteria/HPF None Seen HPF (None Seen); Hyaline Casts/LPF 0-3 HYALINE CAST LPF (0-3 Hyaline); Pathc Cast-AUWi Flag 0.14 (0-2.49); RBC/HPF 0-3 HPF (0-3); Squamous Epithelial 0-3 HPF (0-3); WBC/HPF 0-3 HPF (0-3)
[2018-03-31] MEDS ORDERED: Morphine 4 MG/ML VIAL ONE (04:48)
[2018-03-31 07:32] VITALS: BMI 32.4
[2018-03-31] MEDS: Sodium Chloride 0.9% 1,000 ML IV SCH ×2 (07:32→16:12)
--- NOTE | 2018-03-31 08:52 | CT ---
PRELIMINARY REPORT/[facility]/EMERGENTY AFTER-HOURS PROCEDURE CT Abdomen and Pelvis With Intravenous Contrast CLINICAL HISTORY: 62 years old, female; Pain; Abdominal pain; Generalized TECHNIQUE: Axial computed tomography images of the abdomen and pelvis with intravenous contrast. Coronal reforma tted images were created and reviewed. COMPARISON: No relevant prior studies available. FINDINGS: Lung bases: Lingular atelectasis and/or scarring. ABDOMEN: Liver: Normal. Gallbladder and bile ducts: Normal. Pancreas: Normal. Spleen: Normal. Adrenals: Normal. Kidneys and ureters: Simple left renal cyst measuring 5.2 cm in diameter. Stomach and bowel: Multiple loops of mildly dilated gas and fluid/stool filled mid and distal small b owel, with apparent transition to normal caliber small bowel within the left lower quadrant. Moderate wall thickening of the proximal and mid transverse colon, with minimal adjacent associated inflammatory stranding, likely infectious/inflammatory colitis. Surgical changes of prior partial lef t colectomy, with left lower quadrant colostomy. PELVIS: Appendix: See above. Bladder: Normal. Reproductive: Normal as visualized. ABDOMEN and PELVIS: Intraperitoneal space: Small amount of intraperitoneal free fluid, likely secondary to ongoing small bowel pathology. No free air. Bones/joints: Probable old, healed fracture of the left inferior pubic ramus. Multilevel thoracal bar spine degenerative changes. Evidence of prior lower thoracic spine multilevel vertebral augmentation . Levoscoliosis of the lumbar spine. No dislocation. Soft tissues: Normal. Vasculature: Normal. No abdominal aortic aneurysm. Lymph nodes: Normal. IMPRESSION: 1. Multiple loops of mildly dilated gas and fluid/stool filled mid and distal small bowel, with appar ent transition to normal caliber small bowel within the left lower quadrant. Findings most compatible with small bowel obstruction. 2. Moderate wall thickening of the proximal and mid transverse colon, with minimal adjacent associate d inflammatory stranding, likely infectious/inflammatory colitis. 3. Incidental/non-acute findings are described above. Thank you for allowing us to participate in the care of your patient. Dictated and Authenticated by: Isaac Ignacio MD 03/31/2018 3:18 AM Central Time ([place] & [place]) CT Abdomen and Pelvis With Intravenous Contrast TECHNIQUE: Axial computed tomography images of the abdomen and pelvis with intravenous contrast. Coronal reformatted images were created and reviewed. COMPARISON: No relevant prior studies available. FINDINGS: Lung bases: Lingular atelectasis and/or scarring. ABDOMEN: Liver: Normal. Gallbladder and bile ducts: Normal. Pancreas: Normal. Spleen: Normal. Adrenals: Normal. Kidneys and ureters: Simple left renal cyst measuring 5.2 cm in diameter. Stomach and bowel: Multiple loops of mildly dilated gas and fluid/stoolfilled mid and distal small mimi wel, with apparent transition to normal caliber small bowel within the left lower quadrant. Moderate wall thickening of the proximal and mid transverse colon, with minimal adjacent associated inflammato ry stranding, likely infectious/inflammatory colitis. Surgical changes of prior partial left colectom y, with left lower quadrant colostomy. PELVIS: Appendix: See above. Bladder: Normal. Reproductive: Normal as visualized. ABDOMEN and PELVIS: Intraperitoneal space: Small amount of intraperitoneal free fluid, likely secondary to ongoing small bowel pathology. No free air. Bones/joints: Probable old, healed fracture of the left inferior pubic ramus. Multilevel thoracal bar spine degenerative changes. Evidence of prior lower thoracic spine multilevel vertebral augmentation. Levoscoliosis of the lumbar spine. No dislocation. Soft tissues: Normal. Vasculature: Normal. No abdominal aortic aneurysm. Lymph nodes: Normal. IMPRESSION: 1. Multiple loops of mildly dilated gas and fluid/stool filled mid and distal small bowel, with appar ent transition to normal caliber small bowel within the left lower quadrant. Findings most compatible with small bowel obstruction. 2. Moderate wall thickening of the proximal and mid transverse colon, with minimal adjacent associate d inflammatory stranding, likely infectious/inflammatory colitis. 3. Incidental/non-acute findings are described above. Thank you for allowing us to participate in the care of your patient. Dictated and Authenticated by: Isaac Ignacio MD 03/31/2018 3:18 AM Central Time ([place] & [place]) FINAL REPORT CT ABDOMEN AND PELVIS WITH IV CONTRAST: Date: 03/31/18 INDICATION: Abdominal pain, generalized. IMPRESSION: I agree with the preliminary report provided by [facility]. 1. There are dilated loops of small bowel within the mid abdomen with a transition zone seen wit hin the left upper quadrant of the abdomen best noted on image 43 of series 2. There is moderate mese nteric edema. No definite free air is noted. Overall, the findings are suspicious for a mechanical ob struction that is partial. 2. I do agree with the preliminary report that there is wall thickening involving the colon. Alex e of the pericolonic inflammatory changes may be related to edematous process from the small bowel ob struction. The colon is largely decompressed, which also can accentuate the wall on CT. The colon end s in a left lower quadrant colostomy. Rectal pouch is unremarkable. I do agree, though, more so, that the findings are suspicious for a mild colitis that may be infectious or inflammatory as indicated. 3. There is stable left renal cyst. There is mild subsegmental atelectasis within the region of the lingula. There are vertebroplasty changes involving the lower thoracic spine, specifically T11, T10, and T9. There is a wedge compression abnormality of T12 that was present on the comparison of . POS: [facility]
[2018-03-31] MEDS ORDERED: Pantoprazole 40 MG VIAL IVP SCH (09:00)
[2018-03-31] MEDS: Enoxaparin Sodium 40 MG/0.4 ML SYRINGE SC SCH (09:04)
--- NOTE | 2018-03-31 09:21 | RAD ---
KUB: Date: 03/31/18 INDICATION: 62-year-old female for NG tube placement. COMPARISON: Prior exam dated 03/10/[address] abdomen/pelvis dated 03/31/18. IMPRESSION: NG tube is seen at the level of the gastric antrum. Gas-filled dilated loops of small bowel within th e central abdomen are similar to the CT examination performed earlier on 03/31/18. Lung bases are angie ar. Again seen is vertebroplasty change of the mid to lower thoracic spine. No definite pneumoperiton eum is evident. POS: [facility]
[2018-03-31] MEDS ORDERED: ISOVUE-370 76%-LOCM 1 ML ONE (10:47)
[2018-03-31] MEDS: Acetaminophen 1,000 MG in Premix Bag 1 BAG IVPB PRN ×2 (10:51→17:07)
--- NOTE | 2018-03-31 12:36 | CON ---
DATE OF CONSULTATION: 03/31/2018 HISTORY OF PRESENT ILLNESS: The patient is a 62-year-old female with a history of ulcerati ve colitis. She was recently seen on 03/26/[address] Robb in the clinic. At that time, he had fe lt her ulcerative colitis was not necessarily in remission. He recommended increasing the azathiopri ne to 150 mg per day and to begin tapering her prednisone by 5 mg for a week, and at that time, she w as on 30 mg. She presented to the emergency room with a 1-day history of severe abdominal pain and v omiting. She had no fever or chills. She has had no weight loss. She underwent surgery approximate 2-3 weeks ago for diverticulitis and has a left-sided colostomy. PAST MEDICAL HISTORY: Significant for COPD, osteoporosis, ulcerative colitis, sleep apnea. PAST SURGICAL HISTORY: Includes a spinal surgery; colostomy, secondary to diverticulitis; tubal liga tion; knee surgery. ALLERGIES: CECLOR, CODEINE, and LORTAB. MEDICATIONS: Include acetaminophen 500 mg 2 p.o. daily, gabapentin 1 p.o. b.i.d., calcium 1 p.o. b.i .d., Fosamax 1 p.o. every 7 days, prednisone 30 mg p.o. daily, azathioprine 150 mg p.o. daily, Spiriv a 1 p.o. q.a.m., polyethylene glycol 17 grams p.o. daily, Symbicort daily, tramadol 50 mg p.o. daily p.r.n., trazodone 100 mg p.o. at bedtime. SOCIAL HISTORY: She does not smoke or drink. FAMILY HISTORY: Negative for GI or liver disease. REVIEW OF SYSTEMS: Constitutional: No fever or chills, no weight loss. Eyes: No blurred vision or double vision. ENT: No sore throat or earaches. Cardiovascular: No chest pain or palpitation. P ulmonary: No shortness of breath, cough, or wheezing. Gastrointestinal: See above. Genitourinary: No hematuria or dysuria. Musculoskeletal: No joint pain or muscle weakness. Skin: No rashes. PHYSICAL EXAMINATION: GENERAL: Shows a well-developed, well-nourished, white female in no acute distress. VITAL SIGNS: Temperature 97.9, pulse 86, respiratory rate 16, blood pressure 115/77. HEENT: Unremarkable except for nasogastric tube in the left side. NECK: Supple. CHEST: Clear. CARDIOVASCULAR: Regular rate and rhythm. ABDOMEN: Soft, nontender, without organomegaly or masses. She has a colostomy in the left side. EXTREMITIES: Normal. NEUROLOGIC: Nonfocal. LABORATORY DATA: Shows a white blood cell count of 15.7, hemoglobin 12.2, hematocrit 37.7. Chemistr ies totally normal. Urinalysis is normal. CT abdomen and pelvis shows, 1. Multiple loops of dilated gas and fluid consistent with small-bowel obstruction. 2. There is moderate wall thickening of the proximal mid transverse colon. 3. Left renal cyst. 4. Compression fracture. ASSESSMENT: 1. Ulcerative colitis - the patient has had some symptoms. It is difficult to assess these in light of a recent surgery for diverticulitis. I would continue prednisone to avoid adrenal crisis at 30 o r 25 mg daily, in light of a small-bowel obstruction maybe intravenously. I would hold azathioprine if the patient needs surgery. 2. Small-bowel obstruction. 3. Recent surgery for diverticulitis. RECOMMENDATIONS: 1. IV Solu-Medrol to avoid renal crisis. 2. Nasogastric suction. 3. N.p.o. 4. Surgical opinion.
[2018-03-31] MEDS: Piperacillin/Tazobactam 3.375 GM in Sodium Chloride 0.9% 100 ML IVPB SCH ×3 (13:31→23:23)
[2018-03-31] MEDS ORDERED: PROVENTIL INHALER 6.7 G (200 INHALATIONS) INH PRN (17:01)
[2018-03-31] MEDS: Mometasone/Formoterol 120 PUFF INHALER INH SCH (18:52)
[2018-03-31] MEDS: Ipratropium Bromide 2.5 ml Neb NEB SCH ×2 (18:52→23:25)
--- NOTE | 2018-03-31 18:57 | HP ---
CHIEF COMPLAINT: Abdominal pain. HISTORY OF PRESENT ILLNESS: Ms. Liu is a 62-year-old woman who is status post Olu's procedure by Dr. Cyr for diverticulitis on 03/10/2018. She had been doing well at home until yesterday noé when she started to have central abdominal pain. By that afternoon, she was throwing up. She sta eileen that her colostomy has been putting out gas and stool up until yesterday, but there has not been much out since then. She had similar symptoms about a week previously, but this went away on its own , so she did not come in at that time. She does not have any fevers or chills. She has not been eat ing because of the nausea. Evaluation in the ER included a CT which showed evidence of a small-bowel obstruction, so an NG tube was placed. Her nausea is better, but she is still having some abdominal pain. PAST MEDICAL HISTORY: She has a past medical history significant for ulcerative colitis, COPD, sleep apnea, osteoporosis, and diverticulitis. PAST SURGICAL HISTORY: Tubal ligation, knee surgery, back surgery, finger surgery and a Olu's p rocedure with a descending colostomy. ALLERGIES: She reports allergies to CECLOR, CODEINE, and LORTAB. SOCIAL HISTORY: She is a former smoker, but quit 15 years ago. She does not use alcohol or drugs. OUTPATIENT MEDICATIONS: Include alendronate, vitamin C, azathioprine, calcium with vitamin D, iron, gabapentin, probiotic, MiraLax, prednisone 20 mg p.o. b.i.d., Metamucil, p.r.n. tramadol, and Tylenol . She also uses albuterol, Symbicort, and Spiriva inhalers and takes trazodone for sleep. REVIEW OF SYSTEMS: Ten system review of systems is negative except per HPI and the following. The p atient does have a small amount of bloody rectal discharge even since her Olu's for which she we ars a pad, this has not been frequent or severe, but it is occurring daily. She does not use any erickson mas or suppositories for her proctitis. She is uncertain as to the severity or extent of her ulcerat berny colitis. She was diagnosed with this in 2014. FAMILY HISTORY: Noncontributory. PHYSICAL EXAMINATION: VITAL SIGNS: Patient is afebrile, heart rate is 85, respirations 16, 93% saturated on room air, bloo d pressure 115/77. GENERAL: Reveals a healthy appearing woman in no acute distress. She is not flushed or toxic in constantino earance. She is not jaundiced or icteric and appears comfortable at rest. HEENT: Unremarkable. NECK: Supple, without lymphadenopathy or thyroid nodules. HEART: Regular in its rate and rhythm without murmurs, rubs or gallops. LUNGS: Clear to auscultation bilaterally. ABDOMEN: Soft and nondistended. Her midline incision is healing. She has diminished bowel sounds. Her colostomy is healthy in appearance, but there is minimal stool and gas in the bag. EXTREMITIES: Warm and well perfused without edema. NEUROLOGIC: No focal deficits. PSYCHIATRIC: Alert, oriented, and appropriate. LABORATORY DATA: White count is mildly elevated at 15, hematocrit is also elevated from her discharg e hematocrit of 24-27. It is now 37, platelet count is likewise elevated at 715. Electrolytes are u nremarkable and LFTs are normal. Her albumin is 3.6 and her UA is clear. She has a small amount of leukocyte esterase, but 0-3 white cells and no bacteria. CT images are reviewed and I agree with the written report. NG is in proper position as verified by a KUB done in the ER. ASSESSMENT: Small-bowel obstruction likely due to adhesions, status post Olu's procedure. The patient's abdominal pain is somewhat less than when she was admitted and her nausea is controlled wit h an NG tube in place. PLAN: A trial of nonoperative management of her bowel obstruction. She likely has significant adhes ions at this point, so avoiding surgery would be ideal. If she acutely worsens, then surgery may nee d to be reconsidered, but risks in this phase of her postoperative recovery are somewhat considerable after a 24-48 hour period of bowel rest. I will likely reimage her with oral contrast. For now, javid spears has been made n.p.o. with continuation of her inhalers. She is on CPAP at home which may be diffic ult to fit around the NG tube, but we can make an attempt. Otherwise, we will elevate the head of he r bed. All of her questions were answered and she knows that if her abdominal pain significantly inc reases, she has to ask the nurse to contact me.
[2018-03-31] MEDS ORDERED: Chloraseptic Spray 180 ml Bottle PO PRN (20:19)
[2018-03-31] MEDS ORDERED: Cepastat Lozenges 1 LOZ PO PRN (20:20)
[2018-03-31] MEDS: Ondansetron HCl/PF 4 MG/2 ML Vial SLOW IVP PRN (23:24)
[2018-04-01] MEDS: Ondansetron HCl/PF 4 MG/2 ML Vial SLOW IVP PRN (04:51)
[2018-04-01] MEDS: Acetaminophen 1,000 MG in Premix Bag 1 BAG IVPB PRN (04:51)
[2018-04-01] MEDS: Piperacillin/Tazobactam 3.375 GM in Sodium Chloride 0.9% 100 ML IVPB SCH ×3 (05:00→18:03)
[2018-04-01 05:27] LABS: #Eosinphils 0.3 thou/uL (0.0-0.7); #Lymphocytes 0.7 thou/uL (1.20-3.40); #Neutrophils 6.8 thou/uL (1.40-6.50); %Basophils 0.2 % (0.0-1.0); %Eosinophils 3.6 % (0.0-10.0); %Lymphocytes 7.8 % (21.0-51.0); %Neutrophils 77.5 % (42.0-75.0); Hemoglobin 9.9 g/dL (12.0-16.0); Mean Corpuscular HGB CONC 31.5 g/dL (32.0-36.0); Mean Corpuscular Volume 95.1 fL (78.0-98.0); Mean Platelet Volume 6.7 fL (7.4-10.4); Platelet Count 491 thou/uL (130-400); RBC Distribution Width 14.8 % (11.5-14.5); Red Blood Cell (RBC) Count 3.29 mill/uL (4.20-5.40); White Blood Cell (WBC) Count 8.8 thou/uL (4.8-10.8)
[2018-04-01 06:22] LABS: Anion Gap 12 mmol/L (10-20); BUN (Urea Nitrogen) 15 mg/dL (9.8-20.1); Calc. Creatinine Clearance 92 mL/min (70-130); Carbon Dioxide 23 mmol/L (23-31); Chloride 108 mmol/L (98-107); Estimated GFR-MDRD 69; Glucose 81 mg/dL (80-115); Potassium 3.5 mmol/L (3.5-5.1); Sodium 139 mmol/L (136-145)
[2018-04-01] MEDS: Mometasone/Formoterol 120 PUFF INHALER INH SCH ×2 (07:05→18:20)
[2018-04-01] MEDS: Ipratropium Bromide 2.5 ml Neb NEB SCH ×3 (07:06→18:20)
[2018-04-01] MEDS: Pantoprazole 40 MG VIAL IVP SCH ×2 (08:09→20:45)
[2018-04-01] MEDS: D5 1/2 NS w/20 mEq KCL 1,000 ML IV SCH ×2 (08:10→20:44)
[2018-04-01] MEDS: Enoxaparin Sodium 40 MG/0.4 ML SYRINGE SC SCH (08:11)
[2018-04-01] MEDS: Acetaminophen 1,000 MG in Premix Bag 1 BAG IVPB SCH ×2 (11:58→18:02)
--- NOTE | 2018-04-01 12:03 | RAD ---
KUB AND UPRIGHT: Date: 04/01/18 HISTORY: Small bowel obstruction. FINDINGS: The bowel gas pattern appears nonobstructive. A colostomy is seen in the left lower quadrant. NG tube is seen with the tip in the stomach. Vertebroplasty changes of the thoracic spine are noted. IMPRESSION: 1. NG tube with tip in the stomach. 2. No evidence for bowel obstruction. No free air. POS: [facility]
--- NOTE | 2018-04-01 13:47 | PRG ---
DATE OF SERVICE: 04/01/2018 SUBJECTIVE: The patient is about the same. She is feeling somewhat better, not as bloated. She has had no nausea or vomiting. She has not had any gas or stool in her colostomy bag. OBJECTIVE: VITAL SIGNS: Temperature is 98.0, pulse 75, respiratory rate 14, blood pressure 148/85. CHEST: Clear. CARDIOVASCULAR: Regular rate and rhythm. ABDOMEN: Soft, nontender. Colostomy bag is on the left side. EXTREMITIES: Normal. LABORATORY DATA: Shows a white blood cell count of 8.8, hemoglobin 9.9. Chemistry is significant fo r chloride 108. Abdominal x-ray showed no evidence for bowel obstruction, no free air. ASSESSMENT: 1. Small-bowel obstruction. 2. Recent surgery for diverticulitis. 3. Ulcerative colitis. RECOMMENDATIONS: 1. Continue IV Solu-Medrol. 2. Nasogastric suction. 3. Ice chips. 4. We will defer timing of Gastrografin small bowel series to Dr. Aguilera.
--- NOTE | 2018-04-01 17:06 | PDOC.GSPN ---
Surgery Progress Note: Subj - Subjective Narrative: Patient is feeling better today. The crampy abdominal pain has lessened. She has not passed any gas out of her ostomy. The appliance was changed today and there was some stool in it but she thinks that was there from Monday. Abdomen is soft and slightly distended. She is mildly tender to palpation but definitely better than yesterday. Bowel sounds are still diminished. KUB still shows some dilated bowel loops. Assessment/plan: Small bowel obstruction with symptomatic improvement on bowel rest and decompression. We will continue this for another day. I may elect to get a Gastrografin study tomorrow. Surgery Progress Note: Obj - Vital signs Vital signs: Vital Signs - Most Recent Temp Pulse Resp BP Pulse Ox 97.9 F 67 14 131/77 94 L 04/01/18 15:52 04/01/18 15:52 04/01/18 15:52 04/01/18 15:52 04/01/18 15:52 Surgery Progress Note: Results - Labs Result Diagrams: 04/01/18 05:07 04/01/18 05:07 Lab results: Laboratory Results - last 24 hr 04/01/18 04/01/18 05:07 05:07 WBC 8.8 RBC 3.29 L Hgb 9.9 L Hct 31.3 L MCV 95.1 MCH 30.0 MCHC 31.5 L RDW 14.8 H Plt Count 491 H MPV 6.7 L Neutrophils % 77.5 H Lymphocytes % 7.8 L Monocytes % 11.0 H Eosinophils % 3.6 Basophils % 0.2 Neutrophils # 6.8 H Lymphocytes # 0.7 L Monocytes # 1.0 H Eosinophils # 0.3 Basophils # 0.0 Sodium 139 Potassium 3.5 Chloride 108 H Carbon Dioxide 23 Anion Gap 12 BUN 15 Creatinine 0.84 Estimated GFR (MDRD) 69 Glucose 81 Calcium 8.0
[2018-04-02] MEDS: Acetaminophen 1,000 MG in Premix Bag 1 BAG IVPB SCH ×3 (00:14→11:30)
[2018-04-02] MEDS: Piperacillin/Tazobactam 3.375 GM in Sodium Chloride 0.9% 100 ML IVPB SCH ×4 (00:15→13:33)
[2018-04-02] MEDS: Ipratropium Bromide 2.5 ml Neb NEB SCH ×4 (02:09→18:55)
[2018-04-02] MEDS: Mometasone/Formoterol 120 PUFF INHALER INH SCH ×2 (06:32→18:54)
[2018-04-02] MEDS: D5 1/2 NS w/20 mEq KCL 1,000 ML IV SCH (08:01)
[2018-04-02] MEDS: Enoxaparin Sodium 40 MG/0.4 ML SYRINGE SC SCH (09:17)
[2018-04-02] MEDS: Pantoprazole 40 MG VIAL IVP SCH ×2 (09:18→22:07)
[2018-04-02] MEDS ORDERED: MD-Gastroview 120 ML BOT ONE (11:05)
[2018-04-02] MEDS: Ondansetron HCl/PF 4 MG/2 ML Vial SLOW IVP PRN (11:26)
--- NOTE | 2018-04-02 11:34 | RAD ---
SMALL BOWEL FOLLOW THROUGH: HISTORY: Small bowel obstruction. FINDINGS: NG tube is seen within the stomach. Small bowel transit time is 1 hour. Contrast is seen in the rig ht colon at the 1-hour film. Small bowel loops do not appear significantly dilated. Left-sided colo stomy is noted. IMPRESSION: No evidence of small bowel obstruction. Small bowel transit time of 1 hour. POS: [facility]
--- NOTE | 2018-04-02 13:35 | PRG ---
DATE OF SERVICE: 04/02/2018 SUBJECTIVE: The patient has had multiple bowel movements today after her Gastrografin series. She i s not experiencing any nausea or vomiting. She denies any abdominal pain. OBJECTIVE: VITAL SIGNS: Temperature 97.8, pulse 74, respiratory rate 16, blood pressure 143/77. CHEST: Clear. CARDIOVASCULAR: Regular rate and rhythm. ABDOMEN: Soft, nontender, without organomegaly or masses. Bowel sounds are present. LABORATORY DATA: No new laboratory. Small bowel series showed no evidence of small-bowel obstruction. ASSESSMENT: 1. Small-bowel obstruction - resolved. 2. Ulcerative colitis - stable. RECOMMENDATIONS: 1. Begin feeding trial - will defer to General Surgery. 2. Resume azathioprine once the patient is tolerating oral medications. 3. Resume prednisone taper as previously discussed once the patient is taking oral medications. 4. Follow up with Dr. Robb.
--- NOTE | 2018-04-02 16:28 | PRG ---
DATE OF SERVICE: 04/02/2018 SUBJECTIVE: Ms. Liu is a 62-year-old woman who underwent Olu's procedure on 03/10/2018 for div erticular stricture. The patient presented to the emergency department 2 days ago with abdominal pain associated with naus ea, vomiting as well as no output per colostomy. Conservative management of a small-bowel obstruction was initiated including a nasogastric tube decom pression and bowel rest. This morning, the patient denies any abdominal pain. NG tube output has markedly decreased. There remains no output per colostomy. A small bowel follow through was therefore initiated which at one hour, the Gastrografin was noted in the colon. At the time of my reevaluation, the patient is now having a large amount of liquid stool and gas per colostomy. She denies any problems. OBJECTIVE: VITAL SIGNS: This morning includes blood pressure 128/79, pulse 69, respiratory rate 16, temperature 97.8 degrees Fahrenheit, oxygen saturation 95% on room air. HEART: Reveals regular rate and rhythm, no murmurs or gallops auscultated. CHEST: Clear to auscultation bilaterally. Breathing regular and unlabored. ABDOMEN: Soft, nontender, nondistended. Incisional scar is completely healed. Colostomy is viable and functional now with liquid stool and gas. NEUROLOGIC: Reveals no focal deficits present. LABORATORY FINDINGS: Today includes CBC with normal white blood cell count at 8800. This is in cont rast to 15,700, white blood cell count yesterday. Hemoglobin and hematocrit stable at 9.9 and 31.3 r espectively. Platelet count is also normal at 491,000. Metabolic profile: Sodium 139, potassium 3. 5, chloride is 108, bicarbonate 23, BUN 15, creatinine 0.84, glucose 81. IMPRESSION: Resolved acute small-bowel obstruction. PLAN: Advance diet as tolerated. Nasogastric tube has been discontinued. Increase activity as tole rated. If patient continues to tolerate a diet, She will be discharged home within the 24 hours.
[2018-04-03] MEDS: Ipratropium Bromide 2.5 ml Neb NEB SCH ×3 (00:20→12:29)
[2018-04-03] MEDS: Mometasone/Formoterol 120 PUFF INHALER INH SCH (06:27)
[2018-04-03 07:39] VITALS: BP 121/78; TEMP 98
[2018-04-03] MEDS: Enoxaparin Sodium 40 MG/0.4 ML SYRINGE SC SCH (08:38)
[2018-04-03] MEDS: Pantoprazole 40 MG VIAL IVP SCH (08:40)
== END 2018-04-03 14:23 | disposition home or self-care (01) ==
LOC: ERS 20:55 → SURG B 03-31 03:40
PROVIDERS: ADMIT Surgery; ATTEND Surgery
DX: K56.609 Unspecified intestinal obstruction, unspecified as to partial versus complete obstruction (principal); K51.90 Ulcerative colitis, unspecified, without complications; J44.9 Chronic obstructive pulmonary disease, unspecified; M81.0 Age-related osteoporosis without current pathological fracture; Z87.891 Personal history of nicotine dependence; Z79.83 Long term (current) use of bisphosphonates; Z79.52 Long term (current) use of systemic steroids; Z79.899 Other long term (current) drug therapy; Z88.5 Allergy status to narcotic agent; Z88.8 Allergy status to other drugs, medicaments and biological substances; Z90.49 Acquired absence of other specified parts of digestive tract; Z93.3 Colostomy status
CPT/HCPCS: 36415; 74018; 74019; 74177; 74250; 80048; 80053; 81003; 81015; 83605; 83690; 85025; 87040; 87086; 96361; 96365; 96366; 96372; 96375; 96376; C9113; G0378; J0131; J1650; J2270; J2405; J2543; J2920; J7050; J7644

== ENCOUNTER 2018-08-13 07:29 | Outpatient (CLI) | payer BC ==
--- NOTE | 2018-08-13 09:37 | CT ---
CT ABDOMEN AND PELVIS WITH IV AND ORAL CONTRAST: HISTORY: Abdominal pain. Prior partial colon resection for diverticulitis. Ulcerative colitis. FINDINGS: Lung bases are clear. Small diverticulum from the gastric fundus now contains contrast. Large cyst at the superior pole left kidney is stable. Postoperative changes include left lower quadrant colost ru. No evidence of bowel obstruction. Liver is unremarkable. Urinary bladder is incompletely dist ended. No enlarged lymph nodes or free fluid. The remaining colon contains stool. No evidence of inflammation. There are degenerative changes of the lumbar spine. IMPRESSION: 1. Postoperative changes. Chronic-type findings are stable. 2. No acute abnormalities are demonstrated to explain abdominal pain. POS: [facility]
[2018-08-13] MEDS ORDERED: Iopamidol 370 76% 100 ML VIAL ONE (11:17)
== END 2018-08-13 07:30 | disposition home or self-care (01) ==
LOC: BICCT 07:29
PROVIDERS: ATTEND Internal Medicine
DX: K51.90 Ulcerative colitis, unspecified, without complications (principal); Z98.890 Other specified postprocedural states
CPT/HCPCS: 74177; 82565

== ENCOUNTER 2019-09-03 07:58 | Outpatient (CLI) | payer BC ==
--- NOTE | 2019-09-03 10:44 | RAD ---
XR Colostomy Reversal Enema HISTORY: Colostomy performed in 2018 for diverticulitis. Exam requested to evaluate prior to reversal surgery. COMPARISON: None. FINDINGS: There is retrograde flow into the rectosigmoid for 12 cm. No contrast extravasation is seen .
[2019-09-03] MEDS ORDERED: MD-Gastroview 120 ML BOT ONE (14:59)
== END 2019-09-03 07:59 | disposition home or self-care (01) ==
LOC: RAD 07:58
PROVIDERS: ATTEND Physician Assistant
DX: Z48.815 Encounter for surgical aftercare following surgery on the digestive system (principal); Z93.3 Colostomy status
CPT/HCPCS: 74280; Q9963

== ENCOUNTER 2019-09-09 11:15 | Inpatient (IN) | payer BC ==
[2019-09-09 11:29] VITALS: BMI 30.1
[2019-09-10] MEDS ORDERED: ceFOXitin 2 GM/50 ML Duplex BAG ONE ×2 (06:04→18:47)
[2019-09-10] MEDS ORDERED: Ketorolac Tromethamine 30 MG/ML VIAL ONE (06:04)
[2019-09-10] MEDS ORDERED: Neomycin-Polymyxin 1 ML AMP ONE (06:30)
[2019-09-10] MEDS ORDERED: Midazolam HCl 2 mg/2 ml Vial ONE (06:31)
[2019-09-10] MEDS ORDERED: Fentanyl 250 MCG/5 ML VIAL ONE (06:31)
[2019-09-10] MEDS ORDERED: Scopolamine 1.5 mg/72 hour Patch ONE (06:46)
[2019-09-10] MEDS ORDERED: Dexamethasone 4 mg/ml Vial ONE (06:53)
[2019-09-10] MEDS ORDERED: Dexamethasone 20 MG/5 ML VIAL ONE (13:37)
[2019-09-10] MEDS ORDERED: Rocuronium Bromide 10 MG/ML (10ML VIAL) ONE (13:37)
[2019-09-10] MEDS ORDERED: PROPOFOL 200 MG/20 ML VIAL ONE (13:37)
[2019-09-10] MEDS ORDERED: Ondansetron PF 4 MG/2 ML Vial ONE (13:37)
[2019-09-10] MEDS ORDERED: Ondansetron HCl/PF 4 MG/2 ML Vial IVP PRN (13:44)
[2019-09-10] MEDS ORDERED: Promethazine HCl 25 MG/ML VIAL IM PRN ×2 (13:44→14:51)
[2019-09-10] MEDS ORDERED: Promethazine HCl 25 MG/ML VIAL SLOW IVP PRN (13:44)
[2019-09-10] MEDS ORDERED: Fentanyl 100 MCG/2 ML VIAL ONE ×3 (13:59→15:23)
[2019-09-10] MEDS ORDERED: diphenhydrAMINE 50 MG/ML VIAL IM PRN (14:51)
[2019-09-10] MEDS ORDERED: Dextrose 50% Abboject 50 ML SYRINGE SLOW IVP PRN (14:51)
[2019-09-10] MEDS ORDERED: diphenhydrAMINE 50 MG/ML VIAL IVP PRN (14:51)
[2019-09-10] MEDS ORDERED: diphenhydrAMINE 25 MG CAP PO PRN (14:51)
[2019-09-10] MEDS ORDERED: Naloxone HCl 0.4 mg/ml Vial IV PRN (14:51)
[2019-09-10] MEDS ORDERED: Ondansetron PF 4 MG/2 ML Vial IVP PRN (14:51)
[2019-09-10] MEDS ORDERED: HumaLOG 300 UNITS/3 ML VIAL SC PRN (14:51)
[2019-09-10] MEDS ORDERED: Dextrose 5% in Water 1,000 ML IV PRN (14:51)
[2019-09-10] MEDS ORDERED: Albumin 5% 500 ML ONE (14:53)
[2019-09-10] MEDS ORDERED: Communication Order-Pharmacy FS SCH (15:00)
--- NOTE | 2019-09-10 15:31 | RAD ---
ONE VIEW ABDOMEN: COMPARISON: 03/31/2018. HISTORY: Dobbhoff feeding tube placement. FINDINGS: Nasogastric tube terminates in the gastric body. Dobbhoff feeding tube appears to be at the level of the gastric antrum. Nonspecific bowel gas pattern. Stable multilevel thoracic spine vertebroplasty change. IMPRESSION: Dobbhoff feeding tube as above. Consider advancement into the duodenum/jejunum. Transcribed Date/Time: 09/10/2019 3:34 PM
[2019-09-10 17:49] LABS: Hemoglobin 11.3 g/dL (12.0-16.0); Mean Corpuscular HGB CONC 32.2 g/dL (32.0-36.0); Mean Corpuscular Volume 96.5 fL (78.0-98.0); Mean Platelet Volume 7.8 fL (7.4-10.4); Platelet Count 419 thou/uL (130-400); RBC Distribution Width 12.8 % (11.5-14.5); Red Blood Cell (RBC) Count 3.65 mill/uL (4.20-5.40); White Blood Cell (WBC) Count 18.6 thou/uL (4.8-10.8)
[2019-09-10 18:08] LABS: Lactic Acid 1.1 mmol/L (0.5-2.2)
[2019-09-10 18:11] LABS: Phosphorus 3.6 mg/dL (2.3-4.7)
[2019-09-10 18:14] LABS: Anion Gap 12 mmol/L (10-20); BUN (Urea Nitrogen) 10 mg/dL (9.8-20.1); Calc. Creatinine Clearance 93 mL/min (70-130); Calcium 8.1 mg/dL (7.8-10.44); Carbon Dioxide 27 mmol/L (23-31); Chloride 105 mmol/L (98-107); Estimated GFR-MDRD 78; Glucose 150 mg/dL (80-115); Magnesium 1.5 mg/dL (1.6-2.6); Potassium 4.4 mmol/L (3.5-5.1); Sodium 140 mmol/L (136-145)
[2019-09-10 18:18] LABS: Band 44 % (5-11); Lymphocytes 6 % (21-51); MDiff Complete? YES; Metamyelocyte 2 % (0-0); Monocytes 1 % (0-10); Myelocyte 1 % (0-0); Neutrophil 45 % (42-75); Platelet Morphology Comment Appears Increased; Polychromasia SLIGHT = 2-3 cells (100X) (0-2/hpf); Reactive Lymphocytes 1 % (0-10); Reflex for Review?? NO
[2019-09-10] MEDS ORDERED: Magnesium 2 GM/50 ML 2 GM in Premix Bag 1 BAG IVPB SCH (18:30)
[2019-09-10] MEDS ORDERED: BUDESONIDE FORMOTEROL PO PRN (19:37)
[2019-09-10] MEDS ORDERED: PROVENTIL INHALER 6.7 G (200 INHALATIONS) INH PRN (19:37)
[2019-09-10] MEDS ORDERED: Mometasone/Formoterol 120 PUFF INHALER INH PRN (20:03)
[2019-09-10] MEDS: Lactated Ringer's 1,000 ML IV SCH (20:04)
[2019-09-10] MEDS: cefOXitin Sodium/Dextrose,Iso 2 GM in Premix Bag 1 BAG IVPB SCH ×2 (20:10→23:42)
[2019-09-10] MEDS: Acetaminophen 500 MG TAB PO SCH ×2 (20:11→23:42)
[2019-09-10] MEDS: Famotidine/PF 20 mg/2ml Vial SLOW IVP SCH (20:41)
[2019-09-10] MEDS: Enoxaparin Sodium 40 MG/0.4 ML SYRINGE SC SCH (20:42)
--- NOTE | 2019-09-10 21:28 | OP ---
DATE OF PROCEDURE: 09/10/2019 PREOPERATIVE DIAGNOSES: History of ulcerative colitis, status post Olu's procedure for perforated acute diverticulitis. POSTOPERATIVE DIAGNOSES: 1. History of ulcerative colitis, status post Olu's procedure for perforated acute diverticulitis. 2. 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 3. Extensive adhesiolysis. TESTS PERFORMED: 1. Exploratory laparotomy. 2. Extensive adhesiolysis. 3. Placement of feeding nasojejunal tube. 4. Low colorectal anastomosis with protective ileostomy. ANESTHESIA: General endotracheal. ESTIMATED BLOOD LOSS: 250 mL. FLUIDS GIVEN: 3000 mL of crystalloids. COUNTS: Sponge and instrument counts were verified as correct x2. COMPLICATIONS: None apparent at the time of operation. INDICATIONS FOR OPERATION: This is a 64-year-old woman with previous history of ulcerative colitis and perforated sigmoid colon diverticulitis, who underwent a Olu's procedure. The patient was scoped recently, finding no active colitis. She was brought to the operating room today for colostomy takedown. Findings are consistent with rectal pouch stricture and probable evidence of acute ulcerative colitis in the proximal left colon. Additional findings include extensive intraabdominal adhesions involving practically all loops of small bowel and abdominal wall. DESCRIPTION OF PROCEDURE: Informed consent was obtained from the patient, brought to the operating room and placed in supine position. Following general anesthesia, a Kunz catheter was inserted and placed to bedside drain. The patient was placed in the lithotomy position. Nasogastric tube was placed by Anesthesia. Abdomen was sterilely prepped and draped in usual fashion. The previous colostomy site was sutured closed using a running stitch of 2-0 silk to avoid contamination of the wound. A midline incision was then made using 10 scalpel. Incision was carried through subcutaneous tissues and maintained hemostasis using cautery. Fascia was incised in the midline exposing the peritoneum beneath, which was grasped x2 with hemostats. Peritoneal cavity was sharply entered using Metzenbaum scissors. Upon entrance into the abdominal cavity, extensive amount of intraabdominal adhesions were encountered. Meticulous dissection was taken to free of small bowel from the anterior abdominal wall. A Bookwalter was then put in place to gain exposure. Small bowel was then run from ligament of Treitz down to terminal ileum, taken down adhesions meticulously as they were encountered. We were then able to find the stay sutures applied at the rectal pouch. The rectal pouch appeared to be quite strictured. At this juncture, my special education assistant attempted to pass the Endo dilator sizers in the upper rectum encountering some difficulties. I presence of Dr. Kvng Clifford, who assisted performing rectal examination under anesthesia. The strictures were again encountered involving majority of the rectal pouch. Decision was made, therefore, to take down the rectal pouch down to the peritoneal reflection to prepare for colorectal anastomosis. The mesorectum was sharply taken down using LigaSure device with good hemostasis. The uterus was dissected off the rectal pouch. The rectal stump was then divided just below the peritoneal reflection using a contour stapler, and the specimen was passed off the operative field for pathology. At this juncture, the previous colostomy site was evaluated. I applied a contour stapler to divide the bowel just as it exited the abdominal cavity. The left colon having been mobilized previously taken down the splenic flexure, it was mobilized down toward the pelvis. I placed a pursestring suture around the staple end of the left colon. The staple line was excised. The mushroom end of the 31 EEA was placed in the lumen and secured with a pursestring suture of 3-[address] Clifford was then able to introduce the 31 EEA per rectum, deploying the anvil under direct vision, connecting this to the mushroom end of the EEA stapler. A click was heard and the stapler was fired to achieve low colorectal anastomosis. Anastomosis was tested under sterile saline with air, which showed a leakage anteriorly, repaired using interrupted sutures of 3-0 silk. The lumen of the proximal colon once the staple line was excised showed friable mucosa, which was quite erythematous. I was concerned about active colitis. Decision was made at this juncture to place a protective proximal loop ileostomy. To achieve this, we were able to run the distal ileum to proximal 2 feet. A core incision was made in the right lower quadrant using a 10 scalpel. Incision was carried down to the level of the fascia using cautery with good hemostasis. Tonsil clamp was introduced through this incision and advanced into the peritoneal cavity, dilating this to 2 fingerbreadths. A Rumford forceps was introduced through peritoneal cavity through this defect grasping the loop at distal ileum, which was pulled through and secured within the abdominal cavity using interrupted suture of 3-0 silk at three points. A #19 Cornelio drain was introduced into the deep pelvis and allowed to exit the abdominal cavity through a separate stab incision. The previous colostomy exit site was inspected. The stay sutures were excised, and the staple end was pushed into the subcutaneous position, and the fascia was closed posteriorly using a running stitch of 0 Vicryl suture. At this juncture, a feeding nasojejunal tube was introduced by Anesthesia, the tip of which was palpated by myself within the gastric lumen. I manipulated tip of this catheter into proximal small bowel without resistance. The abdominal cavity was then copiously irrigated with saline solution until it was clear. All sponges and instruments were reported as correct x2. Small bowel was returned to normal anatomic location. An omentum was drawn over remainder of the viscera. Fascia was approximated in the midline using a running stitch of #1 single stranded PDS. Deep subcutaneous tissues were approximated using interrupted sutures of 3-0 Vicryl. Skin incision was closed using a running stitch of 3-0 Monocryl suture in subcuticular fashion. Dermabond was applied over incisional closure. Upon my attention to the previous colostomy site, making a core incision around the skin of the colostomy using cautery, the colostomy was dissected from surrounding tissues and passed off the operative field following which transmission to Pathology. The defect was irrigated with saline. Anterior rectus fascia was approximated using interrupted sutures of 0 Vicryl. The skin itself was dressed with wet-to-dry sterile gauze. At this juncture, I turned my attention to the loop of the ileum. I scored an incision vertically and was able to perform a standard Noelle ileostomy using interrupted sutures of 3-0 Vicryl. Ostomy appliance was put in place. The patient tolerated the procedure without any apparent complication and was returned to recovery room in satisfactory condition. Job ID: [id number]
--- NOTE | 2019-09-10 22:34 | HP ---
GENERAL SURGEON: Dr. Cyr. HISTORY OF PRESENT ILLNESS: The patient is a 64-year-old female, who presented today for a scheduled colostomy takedown with Dr. Cyr. The patient was appropriately prepped and taken to the OR. A preoperative diagnosis with history of ulcerative colitis, status post Olu's procedure for perforated acute diverticulitis. The procedure performed included exploratory laparotomy, extensive adhesiolysis, placement of feeding NJ tube and low colorectal anastomosis with protective ileostomy. It was found that the patient had a rectal pouch stricture and probable acute colitis with the addition of extensive adhesions. Subsequently, the patient now has an ileostomy. She did receive significant fluid resuscitation in the OR as it was a long case. She received 200 mL of crystalloid, as well as 500 mL of 5% albumin in the PACU. She was extubated and hemodynamically stable. Subsequently, she was transferred to the floor. Laboratory studies demonstrated leukocytosis, chronic anemia, kidney function is normal with some mild hypomagnesemia. The patient was admitted to the surgical floor postoperatively. REVIEW OF SYSTEMS: All additional 10-point review of systems negative except as indicated above. PAST MEDICAL HISTORY: Ulcerative colitis status post Olu's procedure for ruptured diverticulitis, COPD, sleep apnea, osteoporosis, and diverticulitis. PAST SURGICAL HISTORY: Includes tubal ligation, knee surgery, back surgery, finger surgery, and Olu's procedure with descending colostomy. MEDICATIONS: 1. Tylenol. 2. Fosamax. 3. Vitamin C. 4. Calcium carbonate. 5. Vitamin D3. 6. CBD extract. 7. Erythromycin base. 8. Gabapentin. 9. Probiotics. 10. Neomycin. 11. MiraLAX. 12. Metamucil. 13. Spiriva. 14. Tramadol. 15. Trazodone. 16. Turmeric root extract. 17. Albuterol sulfate. 18. Symbicort. SOCIAL HISTORY: The patient is a former smoker, but quit about 15 or so years ago. She denies drug or alcohol use. ALLERGIES: CEFACLOR, CODEINE, AND HYDROCODONE. PHYSICAL EXAMINATION: VITAL SIGNS: The patient is afebrile, hemodynamically stable, saturating greater than 92% on 2 L nasal cannula. GENERAL: Well-appearing middle-aged female, lying in bed postoperatively with no signs of acute distress. PULMONARY: Equal chest rise and fall. Clear breath sounds bilaterally. No signs of acute respiratory distress. CARDIAC: Regular rate and rhythm. No murmurs, gallops, or rubs. GI: Abdomen is soft, appropriately tender to palpation, nondistended. Midline abdominal wound clean, dry, and intact. Previous ostomy site is intact. There is a LAITH drain in the left abdomen, as well as an ileostomy in right lower quadrant of the abdomen. EXTREMITIES: 2+ pulses in all extremities. Gross motor and sensation intact. No significant swelling noted. NEURO: GCS 15. Pupils equal, round, and reactive to light bilaterally. LABORATORY FINDINGS: Postoperative laboratory studies demonstrated white blood cell count 18.6, hemoglobin 11.3, hematocrit 35.2, platelets 419. Sodium 140, potassium 4.4, chloride 105, bicarb 27, BUN 10, creatinine 0.75, glucose 150, lactic acid 1.1, phosphorus 3.6, magnesium 1.5, and cortisol 6.6. DIAGNOSTIC FINDINGS: There are no new diagnostic findings to report. ASSESSMENT: 1. Postop day #0 status post ex lap, extensive adhesiolysis, placement of feeding NJ tube, and low colorectal anastomosis with protective ileostomy. 2. History of ulcerative colitis, chronic obstructive pulmonary disease, sleep apnea, osteoporosis, diverticulitis, and Olu's procedure. PLAN: Continue patient n.p.o. with sips and chips. She will be on LR at 100 an hour. We will restart her respiratory inhaled medications, but hold p.o. medications for now. She will receive Dilaudid INTEGRATION LEAD for pain control, as well as Tylenol orally. She will receive cefoxitin for antibiotics, but she is allergic to penicillins. DVT prophylaxis with SCDs and Lovenox 40 at bedtime. We will repeat chest x-ray and blood work in the morning time. We will closely monitor the patient's urinary output this evening as she did receive significant amount of resuscitation. She also will receive magnesium replacement via IV tonight. This patient was seen and examined by Dr. Cyr and myself this afternoon in the PACU postoperatively. Job ID: [id number] [facility]
[2019-09-11] MEDS ORDERED: Ipratropium Bromide 2.5 ml Neb NEB SCH (01:00)
[2019-09-11] MEDS: Lactated Ringer's 1,000 ML IV SCH ×3 (01:46→22:18)
[2019-09-11] MEDS ORDERED: Hydrocortisone Sod Succ/PF 100 mg/2 ml Vial IVP SCH (02:30)
[2019-09-11] MEDS: Acetaminophen 500 MG TAB PO SCH ×4 (05:39→23:35)
[2019-09-11 05:43] LABS: Phosphorus 2.6 mg/dL (2.3-4.7)
[2019-09-11 05:44] LABS: ALT (SGPT) 25 U/L (8-55); AST (SGOT) 43 U/L (5-34); Alkaline Phosphatase 74 U/L (40-110); Anion Gap 11 mmol/L (10-20); BUN (Urea Nitrogen) 11 mg/dL (9.8-20.1); Bilirubin, Total 0.3 mg/dL (0.2-1.2); Calc. Creatinine Clearance 95 mL/min (70-130); Calcium 7.8 mg/dL (7.8-10.44); Carbon Dioxide 28 mmol/L (23-31); Chloride 104 mmol/L (98-107); Estimated GFR-MDRD 79; Globulin 2.2 g/dL (2.4-3.5); Glucose 121 mg/dL (80-115); Magnesium 2.2 mg/dL (1.6-2.6); Potassium 4.2 mmol/L (3.5-5.1); Protein, Total 5.2 g/dL (6.0-8.3); Sodium 139 mmol/L (136-145)
[2019-09-11 05:49] LABS: Band 29 % (5-11); Hemoglobin 10.8 g/dL (12.0-16.0); Hypochromia SLIGHT = 6-15 cells (100X) (0-5/hpf); Lymphocytes 2 % (21-51); MDiff Complete? YES; Mean Corpuscular HGB CONC 33.1 g/dL (32.0-36.0); Mean Corpuscular Hemoglobin 31.5 pg (27.0-31.0); Mean Corpuscular Volume 94.9 fL (78.0-98.0); Mean Platelet Volume 7.7 fL (7.4-10.4); Monocytes 6 % (0-10); Neutrophil 63 % (42-75); Platelet Count 409 thou/uL (130-400); Platelet Morphology Comment Appears Adequate; RBC Distribution Width 12.9 % (11.5-14.5); Red Blood Cell (RBC) Count 3.42 mill/uL (4.20-5.40); White Blood Cell (WBC) Count 15.6 thou/uL (4.8-10.8)
--- NOTE | 2019-09-11 07:38 | RAD ---
EXAM: Single view of the chest HISTORY: Chest tube placement COMPARISON: None FINDINGS: Single view of the chest shows a normal sized cardiomediastinal silhouette. There appears to be an endotracheal tube with its tip in the lower border of the clavicles. An NG tube is partially visualized but cannot be followed to the lower mediastinum. There is no evidence of consol idation, mass, or pleural effusion. Vertebroplasty cement is seen in the spine. The patient is status post right shoulder arthroplasty. Degenerative changes are seen in the left shoulder. IMPRESSION: No evidence of acute cardiopulmonary disease
[2019-09-11] MEDS: cefOXitin Sodium/Dextrose,Iso 2 GM in Premix Bag 1 BAG IVPB SCH ×3 (08:09→23:35)
[2019-09-11] MEDS: HYDROmorphone 10 mg/100 ml CADD IVPB PRN (08:09)
[2019-09-11] MEDS: Famotidine/PF 20 mg/2ml Vial SLOW IVP SCH ×2 (08:09→20:25)
[2019-09-11] MEDS: Hydrocortisone Sod Succ/PF 100 mg/2 ml Vial IVP SCH ×3 (08:19→20:25)
[2019-09-11] MEDS ORDERED: Ketorolac Tromethamine 30 MG/ML VIAL IVP SCH (08:30)
[2019-09-11] MEDS ORDERED: TIOTROPIUM BROMIDE PO SCH (09:00)
--- NOTE | 2019-09-11 11:15 | PRG ---
DATE OF SERVICE: 09/11/2019 SUBJECTIVE: Ms. Liu is a 64-year-old woman with history of ulcerative colitis; postop day #1, status post colostomy takedown with colorectal anastomosis and protective ileostomy. She is awake and alert, reports a better pain control. She denies any nausea. Urinary output has improved and is currently adequate for this patient's age and weight. OBJECTIVE: VITAL SIGNS: This morning include blood pressure 106/58, pulse is 74, respiratory rate is 18, temperature is 98.2 degrees Fahrenheit, oxygen saturation 96% on 2 L by nasal cannula oxygen. HEART: Reveals regular rate and rhythm. LUNGS: Clear to auscultation bilaterally. Breathing, regular and nonlabored. ABDOMEN: Soft and nondistended. Incision is intact, clean, dry. Ostomy is viable and functional. NEUROLOGIC: Reveals no focal deficits present. LABORATORY FINDINGS: Today includes a CBC with 15,600 white blood cells, hemoglobin and hematocrit 10.8 and 32.4 respectively, the platelet count is 409,000. Metabolic profile; sodium 139, potassium is 4.2, chloride is 104, bicarb is 28, BUN is 11, creatinine 0.74, glucose is 121. IMPRESSION: 1. Postop day #1, status post colostomy takedown with colorectal anastomosis and protective ileostomy. 2. The patient is hemodynamically stable. PLAN: 1. We will resume trophic tube feeds via nasojejunal tube. 2. Kunz catheter will be discontinued. 3. We will increase activity as tolerated. Job ID: [id number]
[2019-09-11] MEDS ORDERED: Bupivacaine HCl 0.5%/Epinephrine 1:200,000/PF 30 ml Vial ONE (13:46)
[2019-09-11] MEDS ORDERED: Dexamethasone 20 MG/5 ML VIAL ONE (13:46)
[2019-09-11] MEDS: Ketorolac Tromethamine 30 MG/ML VIAL IVP SCH ×2 (15:30→20:32)
[2019-09-11] MEDS: Enoxaparin Sodium 40 MG/0.4 ML SYRINGE SC SCH (20:25)
--- NOTE | 2019-09-11 22:58 | PRG ---
DATE OF SERVICE: 09/11/2019 SUBJECTIVE: The patient was seen this evening, lying in bed comfortably with no signs of acute distress. The patient was started on trickle feeds earlier today. Pain is well controlled. She denies nausea or vomiting. 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 She has been ambulating in the hallways. She reports a small amount of liquid output from her ileostomy as well as a little bit of gas in the pouch. OBJECTIVE: VITAL SIGNS: Temperature 98.4, pulse 75, respirations 18, oxygen saturation 96% on room air, and blood pressure 120/79. GENERAL: Well-appearing, elderly female, lying in bed with no signs of acute distress. PULMONARY: Equal chest rise and fall. Clear breath sounds bilaterally. No signs of acute respiratory distress. CARDIAC: Regular rate and rhythm. GI: Abdomen is soft, appropriately tender to palpation, and nondistended. LAITH drain on left-sided abdomen is in place with serosanguineous output. Ileostomy in right abdomen with gas in bag. ASSESSMENT: 1. Postop day #1, status post colostomy takedown with colorectal anastomosis and protective ileostomy. 2. History of ulcerative colitis, chronic obstructive pulmonary disease, sleep apnea, osteoporosis, and diverticulitis. PLAN: Continue current n.p.o. with NG tube in place. Continue tube feeds through Dobhoff at 10 mL per an hour. Previously, Kunz catheter was discontinued. The patient has voided since then. Pain is well controlled. We will continue current MARINE MAMMAL TRAINER and scheduled Toradol. We are pending return of bowel function. We will repeat blood work in the morning. Job ID: [id number]
[2019-09-12] MEDS: Hydrocortisone Sod Succ/PF 100 mg/2 ml Vial IVP SCH ×5 (03:41→23:57)
[2019-09-12] MEDS: Ketorolac Tromethamine 30 MG/ML VIAL IVP SCH ×4 (03:43→21:14)
[2019-09-12 05:25] LABS: Band 17 % (5-11); Eosinophils 1 % (0-10); Hemoglobin 9.6 g/dL (12.0-16.0); Lymphocytes 7 % (21-51); MDiff Complete? YES; Mean Corpuscular HGB CONC 31.3 g/dL (32.0-36.0); Mean Corpuscular Hemoglobin 30.5 pg (27.0-31.0); Mean Corpuscular Volume 97.6 fL (78.0-98.0); Mean Platelet Volume 7.4 fL (7.4-10.4); Monocytes 5 % (0-10); Neutrophil 70 % (42-75); Platelet Count 399 thou/uL (130-400); Platelet Morphology Comment Appears Adequate; Red Blood Cell (RBC) Count 3.13 mill/uL (4.20-5.40); White Blood Cell (WBC) Count 10.6 thou/uL (4.8-10.8)
[2019-09-12 05:36] LABS: Anion Gap 8 mmol/L (10-20); BUN (Urea Nitrogen) 14 mg/dL (9.8-20.1); Calc. Creatinine Clearance 89 mL/min (70-130); Calcium 7.8 mg/dL (7.8-10.44); Carbon Dioxide 30 mmol/L (23-31); Chloride 104 mmol/L (98-107); Estimated GFR-MDRD 74; Glucose 105 mg/dL (80-115); Magnesium 2.3 mg/dL (1.6-2.6); Potassium 3.8 mmol/L (3.5-5.1); Sodium 138 mmol/L (136-145)
[2019-09-12] MEDS: Acetaminophen 500 MG TAB PO SCH ×4 (05:48→23:56)
[2019-09-12] MEDS: Famotidine/PF 20 mg/2ml Vial SLOW IVP SCH ×2 (08:18→21:13)
[2019-09-12] MEDS: cefOXitin Sodium/Dextrose,Iso 2 GM in Premix Bag 1 BAG IVPB SCH ×2 (08:21→15:39)
[2019-09-12] MEDS: Lactated Ringer's 1,000 ML IV SCH ×2 (08:21→21:30)
[2019-09-12] MEDS: HYDROmorphone 10 mg/100 ml CADD IVPB PRN (10:46)
--- NOTE | 2019-09-12 11:34 | PDOC.GSPN ---
Surgery Progress Note: Subj - Subjective Narrative: Patient is POD #2 s/p exploratory laparotomy with adhesiolysis, colostomy takedown with low colorectal anastomosis and protective ileostomy formation. Patient reports doing well overnight, ambulating frequently in the hallway. Pain has been well controlled. Reports small amounts of stool out of her rectum overnight and emptying ileostomy bag twice this morning due to gas and 10cc of stool. [facility] Patient denies n/v, fever, chills, uncoltrolled pain, wound erythema or discharge. Surgery Progress Note: Obj - Vital signs Vital signs: Vital Signs - Most Recent Temp Pulse Resp BP Pulse Ox 98.2 F 88 14 119/77 96 09/12/19 10:42 09/12/19 10:42 09/12/19 10:42 09/12/19 10:42 09/12/19 10:42 - Physical Exam General: no distress Cardiovascular: regular rate and rhythm Respiratory: clear to auscultation, normal expansion, normal respiratory effort , breath sounds present Abdomen: soft, positive bowel sounds, appropriately tender Psychiatric: memory intact, oriented to time, oriented to person, oriented to place, speech is normal Wound: dressing clean,dry,intact, healing well, ostomy/colostomy (Ileostomy bag in place with minimal liquid stool and some preston) Surgery Progress Note: Results - Labs Result Diagrams: 09/12/19 04:54 09/12/19 04:54 Lab results: Laboratory Results - last 24 hr 09/11/19 09/12/19 09/12/19 23:32 04:54 04:54 WBC 10.6 RBC 3.13 L Hgb 9.6 L Hct 30.5 L MCV 97.6 MCH 30.5 MCHC 31.3 L RDW 13.0 Plt Count 399 MPV 7.4 Neutrophils % (Manual) 70 Band Neuts % (Manual) 17 H Lymphocytes % (Manual) 7 L Monocytes % (Manual) 5 Eosinophils % (Manual) 1 Plt Morphology Comment Appears Adequate Sodium 138 Potassium 3.8 Chloride 104 Carbon Dioxide 30 Anion Gap 8 L BUN 14 Creatinine 0.79 Estimated GFR (MDRD) 74 Glucose 105 POC Glucose 106 Calcium 7.8 Phosphorus 2.0 L Magnesium 2.3 09/12/19 05:05 WBC RBC Hgb Hct MCV MCH MCHC RDW Plt Count MPV Neutrophils % (Manual) Band Neuts % (Manual) Lymphocytes % (Manual) Monocytes % (Manual) Eosinophils % (Manual) Plt Morphology Comment Sodium Potassium Chloride Carbon Dioxide Anion Gap BUN Creatinine Estimated GFR (MDRD) Glucose POC Glucose 104 Calcium Phosphorus Magnesium Surgery Progress Note: A/P - Plan Plan: ASSESSMENT: 1. S/P colostomy takedown with low colorectal anastomosis and protective ileostomy formation, POD #2 2. Hx of UC, COPD, ELODIA, Osteoporosis and diverticulitis PLAN: NG and nasojejunal tube were removed at bedside this morning as patient is producing some stool in ostomy bag and ambulating frequently. Will advance diet to CLD with modification for 1 serving ice cream daily per patient's request. Will continue current pain regimen and MANAGER ARMY. Encourage frequent ambulation in hallways, TID at minimum. Will continue to monitor bowel function and pain and advance diet as tolerated.
[2019-09-12] MEDS ORDERED: cefOXitin Sodium/Dextrose,Iso 2 GM in Premix Bag 1 BAG IVPB SCH (16:00)
[2019-09-12 17:20] LABS: Mean Corpuscular HGB CONC 32.6 g/dL (32.0-36.0); Mean Corpuscular Hemoglobin 31.1 pg (27.0-31.0); Mean Corpuscular Volume 95.6 fL (78.0-98.0); Mean Platelet Volume 7.4 fL (7.4-10.4); Platelet Count 475 thou/uL (130-400); RBC Distribution Width 13.1 % (11.5-14.5); Red Blood Cell (RBC) Count 3.53 mill/uL (4.20-5.40); White Blood Cell (WBC) Count 8.2 thou/uL (4.8-10.8)
[2019-09-12 17:38] LABS: Anion Gap 11 mmol/L (10-20); BUN (Urea Nitrogen) 13 mg/dL (9.8-20.1); Calc. Creatinine Clearance 71 mL/min (70-130); Calcium 8.2 mg/dL (7.8-10.44); Carbon Dioxide 27 mmol/L (23-31); Chloride 104 mmol/L (98-107); Estimated GFR-MDRD 57; Glucose 92 mg/dL (80-115); Phosphorus Less than 1.0 mg/dL (2.3-4.7); Sodium 138 mmol/L (136-145)
[2019-09-12] MEDS ORDERED: Sodium Phosphate 30 MMOL in Sodium Chloride 0.9% 250 ML 250 ML IVPB SCH (17:45)
[2019-09-12 17:46] LABS: Band 10 % (5-11); Hypochromia SLIGHT = 6-15 cells (100X) (0-5/hpf); Lymphocytes 5 % (21-51); MDiff Complete? YES; Monocytes 3 % (0-10); Neutrophil 82 % (42-75); Platelet Morphology Comment Appears Increased; Polychromasia SLIGHT = 2-3 cells (100X) (0-2/hpf)
[2019-09-12] MEDS: traZODone HCl 50 MG TAB PO SCH (21:11)
[2019-09-12] MEDS: Enoxaparin Sodium 40 MG/0.4 ML SYRINGE SC SCH (21:15)
[2019-09-12] MEDS: cefOXitin Sodium 2 GM, Admixture Fee 1 EACH in Sodium Chloride 0.9% 100 ML IVPB SCH (23:58)
--- NOTE | 2019-09-13 01:13 | PRG ---
DATE OF SERVICE: 09/12/2019 SUBJECTIVE: Patient was seen this evening during rounds. She was resting comfortably and asleep with no signs of acute distress. Nursing reported no acute events. OBJECTIVE: VITAL SIGNS: Temperature 98.4, pulse 97, respirations 18, oxygen saturation 94% on CPAP. Blood pressure 98/66. GENERAL: Well-appearing elderly female, lying in bed, asleep, with no signs of acute distress. PULMONARY: Equal chest rise and fall. No signs of acute respiratory distress. ASSESSMENT: 1. Postop day #2 status post colostomy takedown with colorectal anastomosis and protective ileostomy. 2. History of ulcerative colitis, chronic obstructive pulmonary disease, sleep apnea, osteoporosis, and diverticulitis. 3. Tachycardia, resolved. PLAN: Tachycardia has been attributed likely to atelectasis and has resolved at this time. Continue current feeds through Dobbhoff. NG tube was discontinued earlier today. Continue clear-liquid diet. Continue ambulating as much as possible. Continue current Dilaudid SECURITY ATTENDANT and Toradol pushes. We are continuing to monitor for return of bowel function through ileostomy. Continue LAITH drain and closely monitor outputs at this time. Job ID: [id number]
[2019-09-13] MEDS: Ketorolac Tromethamine 30 MG/ML VIAL IVP SCH ×2 (03:06→08:24)
[2019-09-13] MEDS: Lactated Ringer's 1,000 ML IV SCH ×2 (03:09→12:15)
[2019-09-13] MEDS: HYDROmorphone 10 mg/100 ml CADD IVPB PRN (03:32)
[2019-09-13] MEDS: Acetaminophen 500 MG TAB PO SCH ×3 (05:44→18:04)
[2019-09-13] MEDS: cefOXitin Sodium/Dextrose,Iso 2 GM in Premix Bag 1 BAG IVPB SCH ×2 (08:19→08:27)
[2019-09-13] MEDS: Famotidine/PF 20 mg/2ml Vial SLOW IVP SCH ×2 (08:19→20:26)
[2019-09-13] MEDS: Hydrocortisone Sod Succ/PF 100 mg/2 ml Vial IVP SCH ×3 (08:20→18:15)
[2019-09-13] MEDS: cefOXitin Sodium 2 GM, Admixture Fee 1 EACH in Sodium Chloride 0.9% 100 ML IVPB SCH ×2 (08:28→15:52)
--- NOTE | 2019-09-13 12:15 | PDOC.GSPN ---
Surgery Progress Note: Subj - Subjective Narrative: Patient is S/P colostomy takedown with colorectal anastomosis and loop ileostomy formation POD #3. NG and jejunal feeding tube were removed yesterday and patient was started on CLD. However, due to concerns of poor bowel function and abdominal distension, patient was made NPO last night. Today patient reports feeling better with less bloating and distension. She endorses walking in the hallways frequently, minimal stool output with moderate gas into her ileostomy bag, and multiple episodes of anal leakage initially with red blood but now dark and rust colored. She denies fever, chills, n/v, uncontrolled abdominal pain, wound erythema or drainage. Surgery Progress Note: Obj - Vital signs Vital signs: Vital Signs - Most Recent Temp Pulse Resp BP Pulse Ox 98.2 F 89 16 110/72 97 09/13/19 07:52 09/13/19 07:52 09/13/19 07:52 09/13/19 07:52 09/13/19 08:00 - Physical Exam General: no distress, well developed, well nourished Cardiovascular: regular rate and rhythm, no murmur Respiratory: clear to auscultation, normal expansion (RUQ abdominal pain upon deep inspiration), normal respiratory effort, breath sounds present Abdomen: soft, positive bowel sounds, appropriately tender (Moderate soreness with palpation over old ostomy site) Psychiatric: memory intact, oriented to time, oriented to person, oriented to place Wound: dressing clean,dry,intact, healing well (Good granulation tissue in colostomy closure site. Wet to dry dressing placed) Surgery Progress Note: Results - Labs Result Diagrams: 09/12/19 17:01 09/12/19 17:01 Surgery Progress Note: A/P - Plan Plan: Assessment: 1.S/P Colostomy takedown with colorectal anastomosis and ileostomy formation 2. Hx of UC, COPD, ELODIA, and diverticulitis Plan: LAITH drain was removed at bedside this morning and wet to dry dressing placed over colostomy wound site. Patient bowels have begun to return to function with stool and gas output into ostomy bag. Will advance to FLD today and continue to monitor bowel function. Will D/C LOADING UNIT OPERATOR and IV fluids and begin oral tylenol and tramadol. Will continue to encourage frequent ambulation, TID in the hallway at minimum.
[2019-09-13] MEDS: traMADol HCl 50 MG TAB PO PRN ×2 (13:31→18:43)
[2019-09-13] MEDS: traMADol HCl 50 MG TAB PO SCH (18:19)
[2019-09-13] MEDS: traZODone HCl 50 MG TAB PO SCH (20:26)
[2019-09-13] MEDS: Enoxaparin Sodium 40 MG/0.4 ML SYRINGE SC SCH (20:26)
[2019-09-13] MEDS: Gabapentin 300 MG CAP PO SCH (20:27)
[2019-09-14] MEDS: Acetaminophen 500 MG TAB PO SCH ×4 (00:20→17:16)
[2019-09-14] MEDS: traMADol HCl 50 MG TAB PO PRN ×3 (00:20→17:18)
[2019-09-14] MEDS: cefOXitin Sodium 2 GM, Admixture Fee 1 EACH in Sodium Chloride 0.9% 100 ML IVPB SCH (00:20)
[2019-09-14] MEDS: Hydrocortisone Sod Succ/PF 100 mg/2 ml Vial IVP SCH ×2 (01:33→08:54)
[2019-09-14] MEDS: traMADol HCl 50 MG TAB PO SCH ×4 (01:35→17:17)
--- NOTE | 2019-09-14 01:40 | PRG ---
DATE OF SERVICE: 09/13/2019 SUBJECTIVE: The patient was seen this evening during rounds. She was resting comfortably in bed and asleep with no signs of acute distress. Nursing reported no acute events. The patient continues to have brownish discharge from her rectum. This is not new. OBJECTIVE: VITAL SIGNS: Temperature 98.5, pulse 98, respirations 16, oxygen saturation 95% on room air, blood pressure 135/73. GENERAL: Well-appearing elderly female, lying in bed, asleep with no signs of acute distress. PULMONARY: Equal chest rise and fall. No signs of acute respiratory distress. ASSESSMENT: 1. Postop day #3 status post exploratory laparotomy, excisional lysis, placement of feeding NJ tube, and low colorectal anastomosis with protective ileostomy. 2. History of ulcerative colitis, chronic obstructive pulmonary disease, sleep apnea, osteoporosis, and diverticulitis. PLAN: Continue current full liquid diet. Continue current p.o. pain medication. LAITH drain previously discontinued during the day. Continue ambulating as much as possible. Continue to monitor bowel function from ileostomy. Possibly advance the patient's diet if she continues to tolerate full liquid diet tomorrow. Job ID: [id number]
[2019-09-14 05:01] LABS: #Eosinphils 0.3 thou/uL (0.0-0.7); #Lymphocytes 0.6 thou/uL (1.20-3.40); #Monocytes 0.5 thou/uL (0.11-0.59); #Neutrophils 9.7 thou/uL (1.40-6.50); %Basophils 0.1 % (0.0-1.0); %Eosinophils 2.3 % (0.0-10.0); %Lymphocytes 5.3 % (21.0-51.0); %Monocytes 4.9 % (0.0-10.0); %Neutrophils 87.5 % (42.0-75.0); Hemoglobin 9.2 g/dL (12.0-16.0); Mean Corpuscular HGB CONC 33.6 g/dL (32.0-36.0); Mean Corpuscular Hemoglobin 32.1 pg (27.0-31.0); Mean Corpuscular Volume 95.7 fL (78.0-98.0); Mean Platelet Volume 7.3 fL (7.4-10.4); Platelet Count 449 thou/uL (130-400); RBC Distribution Width 13.3 % (11.5-14.5); Red Blood Cell (RBC) Count 2.86 mill/uL (4.20-5.40); White Blood Cell (WBC) Count 11.1 thou/uL (4.8-10.8)
[2019-09-14 05:41] LABS: Anion Gap 8 mmol/L (10-20); BUN (Urea Nitrogen) 16 mg/dL (9.8-20.1); Calc. Creatinine Clearance 95 mL/min (70-130); Calcium 7.7 mg/dL (7.8-10.44); Carbon Dioxide 29 mmol/L (23-31); Chloride 103 mmol/L (98-107); Estimated GFR-MDRD 79; Glucose 87 mg/dL (80-115); Magnesium 2.1 mg/dL (1.6-2.6); Phosphorus 2.4 mg/dL (2.3-4.7); Potassium 3.4 mmol/L (3.5-5.1); Sodium 137 mmol/L (136-145)
[2019-09-14] MEDS: Famotidine/PF 20 mg/2ml Vial SLOW IVP SCH ×2 (08:53→20:11)
[2019-09-14] MEDS: Gabapentin 300 MG CAP PO SCH ×2 (08:53→20:11)
[2019-09-14] MEDS ORDERED: Potassium Phosphate 30 MMOL in Sodium Chloride 0.9% 500 ML IVPB SCH (09:15)
[2019-09-14] MEDS ORDERED: Lidocaine 1% (PF) 30 ML VIAL ONE (09:24)
[2019-09-14] MEDS ORDERED: azaTHIOprine 50 MG TAB PO SCH (10:15)
--- NOTE | 2019-09-14 11:34 | RAD ---
EXAM: Single view of the chest HISTORY: Respiratory insufficiency COMPARISON: 09/11/2019 FINDINGS: Single view of the chest shows a normal sized cardiomediastinal silhouette. There is no izabel dence of consolidation, mass, or pleural effusion. The patient is status post right shoulder arthroplasty. Degenerative changes are seen in the spine and left shoulder. Vertebroplasty cement is seen in the spine. IMPRESSION: No evidence of acute cardiopulmonary disease
[2019-09-14] MEDS: Ondansetron PF 4 MG/2 ML Vial IVP PRN (13:29)
[2019-09-14] MEDS: Ondansetron ODT 4 MG TAB PO PRN (17:16)
--- NOTE | 2019-09-14 17:46 | PRG ---
DATE OF SERVICE: 09/14/2019 SUBJECTIVE: The patient was seen this morning during rounds. Awake, alert, in no distress. The patient states she feels a little more sluggish today. Otherwise, she has no complaints and is tolerating a full liquid diet. She continues to have some stools and mucus from her rectum. The patient also reports a productive cough. OBJECTIVE: VITAL SIGNS: Temp 97.9, pulse 93, respirations 18, SpO2 of 96% on room air, blood pressure 103/69. GENERAL: Well-appearing elderly female, lying in bed, no acute distress. PULMONARY: Equal chest rise and fall. Bilateral breath sounds clear. ABDOMEN: Soft, nondistended, bruising to the right lateral flank area, colostomy takedown wound without any drainage or redness. Ileostomy site is clean with brown liquid output. EXTREMITIES: Moves all extremities. No focal deficits. LABORATORY DATA: WBC 11.1, RBC 2.86, hemoglobin 9.2, hematocrit 27.3, platelets 449. Sodium 137, potassium 3.4, chloride 103, BUN 16, creatinine 0.74, estimated GFR 79, glucose 87, calcium 7.7, phosphorus 2.4, magnesium 2.1. DIAGNOSTIC DATA: Chest x-ray, impression, no evidence of acute cardiopulmonary disease. ASSESSMENT: 1. Postop day #4, status post exploratory laparotomy, excisional lysis, and low colorectal anastomosis with protective ileostomy. 2. History of ulcerative colitis, chronic obstructive pulmonary disease, sleep apnea, osteoporosis, and diverticulitis. 3. Hypokalemia. PLAN: We will replace electrolytes. We will increase the patient's diet to regular diet as tolerated. We will discontinue the patient's hydrocortisone. We will add Mucinex q.12 hours. I have instructed the patient to drink plenty of water when she takes Mucinex. The patient's colostomy takedown site was loosely closed by Dr. Cyr with 1 vertical mattress stitch and 2 interrupted sutures. We had a lengthy discussion about the patient going home with Home Health for a few days versus [facility] facility. The patient said that she would think about what is best for her as she does not have anyone at home with her. We will repeat labs in the morning. Most likely, the patient should be able to be discharged home tomorrow. The patient was examined by Dr. Cyr. Job ID: [id number]
[2019-09-14] MEDS: Enoxaparin Sodium 40 MG/0.4 ML SYRINGE SC SCH (20:11)
[2019-09-14] MEDS: guaiFENesin ER 600 MG TAB PO SCH (20:12)
[2019-09-14] MEDS: traZODone HCl 50 MG TAB PO SCH (20:12)
[2019-09-14] MEDS ORDERED: Scopolamine 1.5 mg/72 hour Patch TOP SCH (21:30)
[2019-09-15] MEDS: Acetaminophen 500 MG TAB PO SCH ×4 (00:07→18:09)
[2019-09-15] MEDS: traMADol HCl 50 MG TAB PO SCH ×4 (00:08→18:09)
[2019-09-15] MEDS: traMADol HCl 50 MG TAB PO PRN ×4 (00:08→18:12)
--- NOTE | 2019-09-15 02:30 | PRG ---
DATE OF SERVICE: 09/14/2019 SUBJECTIVE: The patient was seen this evening during rounds. She was lying in bed comfortably and asleep with no signs of acute distress. Nursing reported no acute events. OBJECTIVE: VITAL SIGNS: Temperature 99, pulse 94, respirations 16, oxygen saturation 94% on room air, and blood pressure 116/70. GENERAL: Well-appearing elderly female, lying in bed, asleep with no signs of acute distress. PULMONARY: Equal chest rise and fall. No signs of acute respiratory distress. ASSESSMENT: 1. Postop day #5, status post exploratory laparotomy, extensive adhesiolysis, placement of feeding NJ tube, lower colorectal anastomosis with protective ileostomy. 2. History of ulcerative colitis. 3. Chronic obstructive pulmonary disease. 4. Sleep apnea. 5. Osteoporosis. 6. Diverticulitis. PLAN: Continue current diet and pain regimen. Continue physical and occupational therapy. Continue ambulating as much as possible. The patient's ostomy is working appropriately. The patient will likely be discharged to home in the next 24 to 48 hours with either home with home hospice or to a intermediate facility for a short stay. Job ID: [id number]
[2019-09-15 04:59] LABS: Phosphorus 2.7 mg/dL (2.3-4.7)
[2019-09-15 05:02] LABS: Anion Gap 11 mmol/L (10-20); BUN (Urea Nitrogen) 12 mg/dL (9.8-20.1); Calc. Creatinine Clearance 103 mL/min (70-130); Calcium 7.7 mg/dL (7.8-10.44); Carbon Dioxide 27 mmol/L (23-31); Chloride 104 mmol/L (98-107); Estimated GFR-MDRD 87; Glucose 84 mg/dL (80-115); Magnesium 1.9 mg/dL (1.6-2.6); Potassium 3.9 mmol/L (3.5-5.1); Sodium 138 mmol/L (136-145)
[2019-09-15] MEDS: Famotidine/PF 20 mg/2ml Vial SLOW IVP SCH ×2 (07:55→20:20)
[2019-09-15] MEDS: azaTHIOprine 50 MG TAB PO SCH (07:55)
[2019-09-15] MEDS: guaiFENesin ER 600 MG TAB PO SCH ×2 (07:56→20:22)
[2019-09-15] MEDS: Gabapentin 300 MG CAP PO SCH ×2 (07:56→20:22)
[2019-09-15] MEDS ORDERED: Morphine 4 MG/ML VIAL ONE (09:47)
[2019-09-15] MEDS ORDERED: Iopamidol-370 76% 500 ML 1 ML ONE (13:40)
[2019-09-15] MEDS: metroNIDAZOLE 500 MG TAB PO SCH ×2 (15:16→20:21)
[2019-09-15] MEDS: Ondansetron ODT 4 MG TAB PO PRN (18:09)
[2019-09-15] MEDS: Enoxaparin Sodium 40 MG/0.4 ML SYRINGE SC SCH (20:19)
[2019-09-15] MEDS: traZODone HCl 50 MG TAB PO SCH (20:21)
[2019-09-16] MEDS: Ondansetron PF 4 MG/2 ML Vial IVP PRN ×2 (00:15→05:58)
--- NOTE | 2019-09-16 00:17 | CT ---
EXAM: CT ABDOMEN AND PELVIS HISTORY: Abdominal pain. Ostomy reversal with ileostomy placement on 09/10/2019. COMPARISON: 08/13/2018 Procedure: Multiple contiguous axial images were obtained and a CT of the abdomen and pelvis with IV contrast. C oronal reformats were performed. FINDINGS: Lower Chest: Indeterminate 0.8 x 1.0 cm groundglass nodule in the left lower lobe. Additional linear densities likely represent scar or atelectasis. Small left-sided pleural effusion. Vessels: Normal caliber aorta. Heart: Normal heart size. Trace amount of pericardial fluid. Abdomen: Portal vein:Patent Gallbladder: No calcified gallstones. Normal caliber wall. Liver: Diffuse hypoattenuation due to hepatic steatosis. Pancreas: within normal limits. Spleen: within normal limits. Adrenals: within normal limits. Kidneys: Symmetric enhancement. No obstructive uropathy. Redemonstration of a exophytic cyst emanatin g from the upper pole left kidney measuring 5.7 x 5.2 cm. Bilaterally no obstructive uropathy. Peritoneum: There is evidence of free fluid in the abdomen, along with pockets of free air. Findings are presumed to be due to recent surgery. No evidence of mass or lymphadenopathy. Bowel: Contrast opacifies a grossly unremarkable stomach. Nasogastric tube is noted in the gastric ca rdia. Contrast opacifies multiple normal caliber small bowel loops with slightly prominent plicae circulares. There does appear to be some fecalization and fluid in some of the small bowel loops. The possibility of a partial obstructive process versus ileus should be considered. Ileocecal junction is unremarkable. Mild inflammatory change along the appendix is noted. Appendix still has a normal ca liber. There is circumferential mucosal thickening involving the cecum, ascending colon, transverse colon, and proximal descending colon. There is surgical change at the distal sigmoid colon with evide nce of a suture. There appears to be an ileostomy in the right lower quadrant. Mesentery and Retroperitoneum: No enlarged mesenteric or retroperitoneal lymph nodes. Abdominal Wall: Extensive subcutaneous emphysema and edema, compatible with recent surgery. There is also evidence of a ventral abdominal wall open incision with probable packing material. Correlate clinically. Pelvis: Reproductive Organs and Pelvis: Uterus and adnexal structures are grossly unremarkable. There is evid ence of free air and free fluid in the pelvis. There is stranding of the presacral fat. Findings are presumed to be iatrogenic. No evidence of a drainable infected fluid collection. Bladder: There is air in the nondependent portion of the urinary bladder. Correlate clinically. Bones: Previous vertebroplasty change and chronic compression fracture at the T12 level IMPRESSION: 1. Inflammatory changes involve the colon, as described above. Given that the patient has a past medi antionette history of ulcerative colitis, inflammatory process is favored. 2. Takedown of the previous colostomy with anastomosis at the level of the sigmoid colon. No obvious fluid collection. Stranding of the presacral fat with small pockets of free fluid and free air are presumed to be iatrogenic. 3. Protective ileostomy in the right lower quadrant. 4. Postoperative changes in the anterior subcutaneous fat as described above. 5. Slightly prominent small bowel loops. Correlate for ileus versus a developing/partial bowel obstru ction. 6. Air in the nondependent portion of the urinary bladder. Correlate clinically. Results of study discussed with Dr. Cyr on 09/16/2019 12:16 AM Code CR Transcribed Date/Time: 09/16/2019 7:51 AM
[2019-09-16] MEDS: Acetaminophen 500 MG TAB PO SCH ×4 (00:18→18:27)
[2019-09-16] MEDS: traMADol HCl 50 MG TAB PO SCH ×4 (00:19→18:27)
[2019-09-16] MEDS: traMADol HCl 50 MG TAB PO PRN ×2 (00:24→05:57)
--- NOTE | 2019-09-16 04:11 | PRG ---
DATE OF SERVICE: 09/15/2019 SUBJECTIVE: The patient was seen this evening lying in bed, asleep, with no signs of acute distress. Nursing reported no acute events. OBJECTIVE: VITAL SIGNS: Temperature 99.3, pulse 81, respirations 18, oxygen saturation 94% on room air, blood pressure 128/80. GENERAL: Well-appearing elderly female, lying in bed, asleep with no signs of acute distress. PULMONARY: Equal chest rise and fall. No signs of acute respiratory distress. ASSESSMENT: 1. Postop day #5, status post exploratory laparotomy, extensive adhesiolysis, placement of feeding NJ tube, low colorectal anastomosis with protective ileostomy. 2. Midline abdominal wound infection, status post exploration and wound VAC placement. 3. History of ulcerative colitis. 4. Chronic obstructive pulmonary disease. 5. Sleep apnea. 6. Osteoporosis. 7. Diverticulitis. PLAN: Continue current diet and pain regimen. Continue p.o. antibiotics. NJ tube was placed this evening and the patient did receive a CT scan of the abdomen and pelvis to rule out an anastomotic leak. CT scan ordered by Dr. Cyr. Continue ambulating as much as possible. We will consult Dr. 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 Job ID: [id number]
[2019-09-16] MEDS: guaiFENesin ER 600 MG TAB PO SCH ×2 (08:01→20:56)
[2019-09-16] MEDS: metroNIDAZOLE 500 MG TAB PO SCH (08:01)
[2019-09-16] MEDS: Gabapentin 300 MG CAP PO SCH ×3 (08:01→20:56)
[2019-09-16] MEDS: Saccharomyces boulardii 250 MG CAP PO SCH (08:02)
[2019-09-16] MEDS: Famotidine/PF 20 mg/2ml Vial SLOW IVP SCH (08:02)
[2019-09-16] MEDS: azaTHIOprine 50 MG TAB PO SCH (08:02)
[2019-09-16 08:17] LABS: Hemoglobin 9.1 g/dL (12.0-16.0); Mean Corpuscular HGB CONC 32.1 g/dL (32.0-36.0); Mean Corpuscular Hemoglobin 30.9 pg (27.0-31.0); Mean Corpuscular Volume 96.3 fL (78.0-98.0); Mean Platelet Volume 7.1 fL (7.4-10.4); Platelet Count 577 thou/uL (130-400); RBC Distribution Width 13.6 % (11.5-14.5); Red Blood Cell (RBC) Count 2.95 mill/uL (4.20-5.40); White Blood Cell (WBC) Count 9.1 thou/uL (4.8-10.8)
[2019-09-16 08:25] LABS: Anion Gap 11 mmol/L (10-20); BUN (Urea Nitrogen) 10 mg/dL (9.8-20.1); Calc. Creatinine Clearance 99 mL/min (70-130); Calcium 8.1 mg/dL (7.8-10.44); Carbon Dioxide 29 mmol/L (23-31); Chloride 102 mmol/L (98-107); Estimated GFR-MDRD 83; Glucose 80 mg/dL (80-115); Magnesium 1.8 mg/dL (1.6-2.6); Phosphorus 2.8 mg/dL (2.3-4.7); Potassium 4.2 mmol/L (3.5-5.1); Sodium 138 mmol/L (136-145)
[2019-09-16 08:46] LABS: Band 18 % (5-11); Lymphocytes 8 % (21-51); MDiff Complete? YES; Monocytes 5 % (0-10); Neutrophil 69 % (42-75); Platelet Morphology Comment Appears Increased; Polychromasia SLIGHT = 2-3 cells (100X) (0-2/hpf)
[2019-09-16] MEDS ORDERED: Pantoprazole 40 MG VIAL IVP SCH (09:00)
[2019-09-16] MEDS: Promethazine HCl 25 MG/ML VIAL IM PRN ×2 (11:09→21:07)
--- NOTE | 2019-09-16 11:15 | PDOC.GSPN ---
Surgery Progress Note: Subj - Subjective Narrative: Patient is S/P exploratory laparatomy with adhesiolysis, colostomy takedown, colorectal anastomosis and loop ileostomy formation POD #6. NG tube was replaced over the weekend due to increasing nausea and poor bowel function. She has also developed a midline wound infection, and is s/p bedside washout and exploration with wound vac placement. Patient reports minimal sleep overnight, intense fatigue, and nausea which has caused emesis over the NG tube. She has not been out of bed to walk since Monday due to increased fatigue and reports minimal gas and stool output into ostomy over 24 hours. She currently denies fever, chills, abdominal pain or distension, SOB, or cough. Surgery Progress Note: Obj - Vital signs Vital signs: Vital Signs - Most Recent Temp Pulse Resp BP Pulse Ox 98.5 F 93 18 121/78 96 09/16/19 07:11 09/16/19 07:11 09/16/19 07:11 09/16/19 07:11 09/16/19 07:11 - Physical Exam General: moderate distress (reports extreme nausea), well developed, well nourished ENT: other (NG tube in place) Cardiovascular: regular rate and rhythm, no murmur Respiratory: clear to auscultation, normal expansion, normal respiratory effort , breath sounds present Abdomen: soft, decreased bowel sounds, appropriately tender, other (wound vac in place over midline) Psychiatric: memory intact, oriented to time, oriented to person, oriented to place, speech is normal Wound: dressing clean,dry,intact Surgery Progress Note: Results - Labs Result Diagrams: 09/20/19 04:56 09/17/19 04:51 Lab results: Laboratory Results - last 24 hr 09/16/19 09/16/19 07:55 07:55 WBC 9.1 RBC 2.95 L Hgb 9.1 L Hct 28.4 L MCV 96.3 MCH 30.9 MCHC 32.1 RDW 13.6 Plt Count 577 H MPV 7.1 L Neutrophils % (Manual) 69 Band Neuts % (Manual) 18 H Lymphocytes % (Manual) 8 L Monocytes % (Manual) 5 Plt Morphology Comment Appears Increased H Polychromasia SLIGHT = 2-3 cells Sodium 138 Potassium 4.2 Chloride 102 Carbon Dioxide 29 Anion Gap 11 BUN 10 Creatinine 0.71 Estimated GFR (MDRD) 83 Glucose 80 Calcium 8.1 Phosphorus 2.8 Magnesium 1.8 Surgery Progress Note: A/P - Plan Plan: Assessment: 1. S/P exploratory laparotomy with adhesiolysis, colostomy takedown, colorectal anastomosis, and loop ileostomy POD #6 2. Midline abdominal wound infection, S/P exploration and wound vac placement 3. Active colitis, GI notified 4. Hx of UC, COPD, ELODIA, Osteoporosis, Diverticulitis Plan: CT scan reviewed and shows no evidence of anastomotic leak or abscess formation. Patient reports continued nausea after NG tube placement and decompression. This is likely due to medication and post-operative ileus. Will discontinue Flagyl, continue Zofran and add Phenergan to aid with nausea. Will have PT/OT work with patient today to get her OOB and encourage frequent ambulation to stimulate bowel function. Will continue NG tube on low intermittent suction until symptomatic improvement. GI will see patient today for active colitis, we appreciate their recommendations Addendum - Physician - Physician Attestation Date/Time: 09/23/19 8538 I personally performed or re-performed the physical examination and medical decision making. I have verified all student documentation or findings, including history, physical exam and/or medical decision making.
[2019-09-16] MEDS ORDERED: methylPREDNISolone Sod Succ 40 MG VIAL IVP SCH (15:15)
[2019-09-16] MEDS: Sodium Chloride 0.9% 1,000 ML IV SCH (18:27)
[2019-09-16] MEDS: Enoxaparin Sodium 40 MG/0.4 ML SYRINGE SC SCH (20:57)
[2019-09-16] MEDS: traZODone HCl 50 MG TAB PO SCH (20:58)
[2019-09-16] MEDS: Pantoprazole 40 MG VIAL IVP SCH (20:58)
[2019-09-16] MEDS: methylPREDNISolone Sod Succ 40 MG VIAL IVP SCH (21:08)
--- NOTE | 2019-09-16 22:06 | CON ---
DATE OF CONSULTATION: 09/16/2019 REASON FOR CONSULTATION: Suspected flare on ulcerative colitis. HISTORY OF PRESENT ILLNESS: Ms. Liu is a 64-year-old female who was diagnosed with ulcerative colitis in 2014 at [facility]. Apparently, this is pancolonic disease. After some time, she came under control with Imuran 150 mg a day. Intermittently, she would have a flare and used prednisone. The last time she was on that was in 2018. That is when she was having worsening symptoms and was being treated as a flare, but ultimately developed perforated diverticulitis and was in retrospect felt that her issues were not the ulcerative colitis, but perforated diverticulitis. There were some records indicating previous episodes of pneumatosis in her colon when she was hospitalized at [facility] in the ICU. The details of that are not available, however. After her surgery for perforated diverticulitis in 03/18, she was back on her Imuran and did quite well. In fact, in April 2019, Dr. Robb repeated her endoscopies and in 12/2018, she had her endoscopy repeated and this showed evidence of pseudopolyps, but no active inflammation in the main body of the colon. There was diversion colitis in the rectal stump, so essentially she had endoscopic remission at that time. She stopped. More recently, she was planning on having ostomy takedown, which did occur on the first day of this admission, which was May 10 last week about 7 days ago. She was instructed to hold her Imuran for 3 weeks before that. Unfortunately, about a week before her surgery, she began to have flare with symptoms of bloody diarrhea weekly. When she presented for the day of her surgery, she informed the surgical team of that. They proceeded with ostomy takedown. At the time of her surgery, noted significant colitis in the rectum and the pathology from that takedown shows the same. There was a small leak, this was repaired at the time of surgery and she had an ostomy created. She had ileostomy created to protect the sigmoid anastomosis. Postoperatively, the patient notes she received steroids for a few days for low blood pressure, but then those were stopped. She has developed a wound infection and some dehiscence and now has a wound VAC on. She had quite a bit of nausea and has NG tube in now. She has been emptying the ileostomy bag. She tends to have just continued seepage of bloody mucoid material from the rectum. She has developed increasing white count and platelet count over the past several days. She denies any fever or chills, rashes, oral ulcers, arthralgias or myalgias. Mainly, she complains of nausea at present. Yesterday, she had a CAT scan showed worsening nausea and showed some enhancement of the colon on the right side of the abdomen. There was some free air in the abdomen consistent with recent surgery, some fecalization fluid inside the small-bowel loops distally described as ileus versus partial obstruction, mild inflammatory changes in the cecum and ascending and transverse colon and proximal descending. PAST MEDICAL HISTORY: 1. Ulcerative colitis since 2014 in remission as of 12/2018. 2. History of diverticulitis with perforation requiring ostomy in 18. 3. COPD, osteoporosis, sleep apnea. PAST SURGICAL HISTORY: Spinal surgery, foot surgery, right shoulder surgery, diverticulitis, tubal ligation. ALLERGIES: CECLOR, CODEINE, AND LORTAB. MEDICATIONS AT HOME: 1. Trazodone. 2. Ultram. 3. Azathioprine 150 mg daily. 4. Turmeric. 5. Spiriva. 6. Metamucil. 7. Polyethylene glycol. 8. Probiotic. 9. Erythromycin. 10. CBD oil. 11. Vitamin D3. 12. Calcium. 13. Symbicort inhaler. 14. Vitamin C. 15. Fosamax. 16. Acetaminophen. PRESENT MEDICATIONS: 1. Acetaminophen. 2. Albuterol. 3. Azathioprine 150 mg started yesterday. 4. Lovenox subcutaneous daily 40. 5. Levsin. 6. Insulin sliding scale. 7. Levaquin started today. 8. Dulera inhaler. 9. Zofran. 10. Phenergan. 11. Florastor. 12. Tramadol. 13. Desyrel. ASSESSMENT: This is a 64-year-old female who had ostomy takedown last week and it appears that her colitis was fully flaring about a week before that. Now, she is having active colitis symptoms with tenesmus and urgency and bloody mucoid stools with a CT showing inflammation in the ascending and transverse and descending colons. She has had apparently a difficult surgery with a lot of adhesion takedowns and ultimately creation of ileostomy to protect the anastomosis in the low rectal or sigmoid colon. She has had developed a wound dehiscence for which she has a wound VAC on now. Her labs were notable for a white count of 9.1, hemoglobin 9.1, platelet count of 577, which is likely an acute phase reaction with 18% bands and she has a normal comprehensive metabolic profile. Fasting cortisol was 6 on . She was given stress-dose steroids at that time. She has had electrolytes replaced appropriately. RECOMMENDATIONS: At this time, I would check a C diff. I would place her on IV Solu-Medrol 20 q.8 for ulcerative colitis flare. If she does not respond to this, we would consider endoscopy, although with the inflamed nature of the colon when the colostomy was taken down, she would be at high risk for perforation. Another option would be to treat her with Remicade, which would be what I would favor doing if she does not respond and she is C difficile negative. At this point in time, I do not know that she needs antibiotics. If she does not avoid it, then she is at high risk for C diff, we will defer antibiotic choice to Surgery. Job ID: [id number] ANA
[2019-09-17] MEDS: Acetaminophen 500 MG TAB PO SCH ×5 (00:12→23:36)
[2019-09-17] MEDS: traMADol HCl 50 MG TAB PO SCH ×4 (00:12→18:42)
--- NOTE | 2019-09-17 01:18 | PRG ---
DATE OF SERVICE: 09/17/2019 SUBJECTIVE: The patient was seen this evening, lying in bed on her left side, asleep with no signs of acute distress. Nursing reported no acute events. NG to low intermittent wall suction. The patient has been n.p.o. She did vomit 1 time this morning with NG tube replaced. Otherwise, she has been stable. OBJECTIVE: VITAL SIGNS: Temperature 98.4, pulse 81, respirations 20, oxygen saturation 95% on room air, blood pressure 131/82. GENERAL: Elderly female, lying in bed with no signs of acute distress. PULMONARY: Equal chest rise and fall. No signs of acute respiratory distress. ASSESSMENT: 1. Postoperative day #6 status post exploratory laparotomy extensive adhesiolysis. Placement of feeding nasojejunal tube. 2. Low colorectal anastomosis with protective ileostomy. 3. Ileus. 4. Midline abdominal wound infection. 5. History of ulcerative colitis. 6. Chronic obstructive pulmonary disease. 7. Sleep apnea. 8. Osteoporosis. 9. Diverticulitis. 10. Active colitis. PLAN: 1. Continue n.p.o. 2. Continue normal saline at 100 an hour. 3. Continue NG tube to low intermittent wall suction. Continue current antibiotics. Dr. Ruff of GI saw the patient and started her on Solu-Medrol. We will continue to monitor the progress of that. 4. The patient does have an ileus and is not moving around very much. 5. PT was reordered today and the patient refused physical therapy. Job ID: [id number]
[2019-09-17 05:34] LABS: ALT (SGPT) 20 U/L (8-55); AST (SGOT) 16 U/L (5-34); Albumin 2.3 g/dL (3.4-4.8); Alkaline Phosphatase 126 U/L (40-110); Anion Gap 16 mmol/L (10-20); BUN (Urea Nitrogen) 12 mg/dL (9.8-20.1); Bilirubin, Total 0.3 mg/dL (0.2-1.2); Calc. Creatinine Clearance 106 mL/min (70-130); Calcium 7.9 mg/dL (7.8-10.44); Carbon Dioxide 23 mmol/L (23-31); Chloride 104 mmol/L (98-107); Estimated GFR-MDRD 90; Globulin 2.8 g/dL (2.4-3.5); Glucose 102 mg/dL (80-115); Magnesium 1.9 mg/dL (1.6-2.6); Potassium 4.2 mmol/L (3.5-5.1); Protein, Total 5.1 g/dL (6.0-8.3); Sodium 139 mmol/L (136-145)
[2019-09-17] MEDS: methylPREDNISolone Sod Succ 40 MG VIAL IVP SCH ×3 (06:21→21:34)
[2019-09-17] MEDS: Promethazine HCl 25 MG/ML VIAL IM PRN (06:21)
[2019-09-17] MEDS: Sodium Chloride 0.9% 1,000 ML IV SCH ×3 (06:23→23:36)
[2019-09-17 07:48] LABS: Hemoglobin 9.5 g/dL (12.0-16.0); Mean Corpuscular HGB CONC 32.6 g/dL (32.0-36.0); Mean Corpuscular Hemoglobin 31.3 pg (27.0-31.0); Mean Corpuscular Volume 95.9 fL (78.0-98.0); Mean Platelet Volume 7.1 fL (7.4-10.4); Platelet Count 622 thou/uL (130-400); RBC Distribution Width 13.8 % (11.5-14.5); Red Blood Cell (RBC) Count 3.04 mill/uL (4.20-5.40); White Blood Cell (WBC) Count 6.7 thou/uL (4.8-10.8)
[2019-09-17 08:09] LABS: Band 14 % (5-11); Lymphocytes 8 % (21-51); MDiff Complete? YES; Metamyelocyte 1 % (0-0); Monocytes 4 % (0-10); Neutrophil 73 % (42-75); Platelet Morphology Comment Appears Increased; Polychromasia SLIGHT = 2-3 cells (100X) (0-2/hpf)
[2019-09-17] MEDS: azaTHIOprine 50 MG TAB PO SCH (08:09)
[2019-09-17] MEDS: Saccharomyces boulardii 250 MG CAP PO SCH (08:09)
[2019-09-17] MEDS: guaiFENesin ER 600 MG TAB PO SCH ×2 (08:09→20:06)
[2019-09-17] MEDS: Gabapentin 300 MG CAP PO SCH ×2 (08:10→20:06)
[2019-09-17] MEDS: traMADol HCl 50 MG TAB PO PRN (09:28)
[2019-09-17] MEDS: Aspirin 325 mg Enteric Coated Tablet PO SCH (09:32)
[2019-09-17] MEDS ORDERED: Lidocaine 4% Topical Sol 50 ML BOT TOP SCH (10:15)
[2019-09-17] MEDS: Morphine 4 MG/ML VIAL SLOW IVP PRN (10:38)
--- NOTE | 2019-09-17 13:31 | PDOC.GSPN ---
Surgery Progress Note: Subj - Subjective Narrative: Patient is S/P exploratory laparotomy with adhesiolysis, colostomy takedown, colorectal anastamosis and loop ileostom formation POD #7. Patient did well overnight and reports feeling improved from yesterday. She reports her nausea is under better control and she has been able to ambulate on her own in her room this morning. She refused to work with PT again yesterday, saying she is able to walk unassisted. She reports moderate stool and gas output into her ostomy bag and some mucous like anal leakage. Her midline wound was evaluated at bedside this morning during woundvac change and requires more time with the wound vac to develop adequate granulation tissue. She denies fever, chills, current uncontrolled nausea, abdominal pain or distension. Surgery Progress Note: Obj - Vital signs Vital signs: Vital Signs - Most Recent Temp Pulse Resp BP Pulse Ox 98.5 F 77 18 120/75 94 L 09/17/19 11:56 09/17/19 11:56 09/17/19 11:56 09/17/19 11:56 09/17/19 11:56 - Physical Exam General: no distress, well developed, well nourished ENT: other (NG tube in place with bilious drainage) Respiratory: normal expansion, normal respiratory effort Abdomen: soft, nondistended Psychiatric: memory intact, oriented to time, oriented to person, oriented to place, speech is normal Wound: other (wound evaluated during dressing change. Minimal granulation tissue formation in the inferior midline portion of wound) Surgery Progress Note: Results - Labs Result Diagrams: 09/17/19 04:51 09/17/19 04:51 Lab results: Laboratory Results - last 24 hr 09/17/19 09/17/19 04:51 04:51 WBC 6.7 RBC 3.04 L Hgb 9.5 L Hct 29.1 L MCV 95.9 MCH 31.3 H MCHC 32.6 RDW 13.8 Plt Count 622 H MPV 7.1 L Neutrophils % (Manual) 73 Band Neuts % (Manual) 14 H Lymphocytes % (Manual) 8 L Monocytes % (Manual) 4 Metamyelocytes % (Man) 1 H Neutrophils # Not Reportable Lymphocytes # Not Reportable Plt Morphology Comment Appears Increased H Polychromasia SLIGHT = 2-3 cells Sodium 139 Potassium 4.2 Chloride 104 Carbon Dioxide 23 Anion Gap 16 BUN 12 Creatinine 0.66 Estimated GFR (MDRD) 90 Glucose 102 Calcium 7.9 Phosphorus 3.0 Magnesium 1.9 Total Bilirubin 0.3 AST 16 ALT 20 Alkaline Phosphatase 126 H Serum Total Protein 5.1 L Albumin 2.3 L Globulin 2.8 Albumin/Globulin Ratio 0.8 L Surgery Progress Note: A/P - Plan Plan: Assessment: 1. S/P exploratory laparotomy with adhesiolysis, colostomy takedown, colorectal anastamosis, loop ileostomy POD #7 2. Midline abdominal wound infection, S/P exploration and wound vac placement 3. Active colitis, GI following 4. Hx of UC, COPD, ELODIA, Osteoporosis, Diverticulitis Plan: Will continue current pain and nausea medication regimen. Will leave NG tube in place, off of suction. Advance diet to CLD and allow 1 serving icecream daily. Will encourage frequent ambulation, TID at minimum to stimulate bowel function. Will monitor for full return of bowel function. Midline wound evaluated and healing well with some areas of little to no granulation tissue formation in the inferior midline. Wound vac replaced and will re-evaluate at next vac change. Patient was seen with Dr Cyr on morning rounds. Plan was discussed with him and patient and all are in agreement Addendum - Physician - Physician Attestation Date/Time: 09/17/19 8224 I personally performed or re-performed the physical examination and medical decision making. I have verified all student documentation or findings, including history, physical exam and/or medical decision making.
[2019-09-17] MEDS ORDERED: Morphine 4 MG/ML VIAL SLOW IVP ONE (16:00)
[2019-09-17] MEDS: traZODone HCl 50 MG TAB PO SCH ×2 (20:05→21:37)
[2019-09-17] MEDS: Enoxaparin Sodium 40 MG/0.4 ML SYRINGE SC SCH (20:05)
[2019-09-17] MEDS: Ondansetron ODT 4 MG TAB PO PRN (20:06)
[2019-09-17] MEDS: Pantoprazole 40 MG VIAL IVP SCH (20:06)
--- NOTE | 2019-09-17 22:00 | PRG ---
DATE OF SERVICE: 09/17/2019 REASON FOR CONSULTATION: Probable ulcerative colitis flare, status post surgical reanastomosis of the colon. SUBJECTIVE: Today, the patient states that after being placed on steroid therapy yesterday, she is feeling significantly better with only mild nausea, but no further episodes of vomiting. She also states that she has had minimal mucoid stools and/or blood/hematochezia today with approximately 1 to 2 small volume bowel movements. Otherwise, she states that her abdominal pain also has improved and is only minimally tender surrounding the wound VAC site. Otherwise, she denies any nausea, vomiting, fevers, chills, hematemesis, melena, dysphagia, or odynophagia. She had been able to tolerate a clear liquid diet earlier today without difficulty. OBJECTIVE: VITAL SIGNS: Temperature 98, pulse 79, blood pressure 122/73, respiratory rate 18, saturating 96% on room air. GENERAL: The patient is lying in bed, in no acute distress. Alert and oriented x4. CARDIOVASCULAR: Regular rate and rhythm. RESPIRATORY: Clear to auscultation bilaterally. ABDOMEN: Normoactive bowel sounds. Soft. Mild tenderness to palpation around the wound VAC site. Wound VAC in midline with edges clean, dry, and intact with no evidence of purulence or breakdown. Ileostomy in the right mid abdomen again with no skin breakdown or purulence. EXTREMITIES: No cyanosis, clubbing, or edema. LABORATORY DATA: CBC with white blood cell count of 6.7, hemoglobin 9.5, hematocrit 29.1, platelets 622. Chemistry with a sodium of 139, potassium 4.2, chloride 104, CO2 of 23, BUN 12, creatinine 0.66, glucose 102, AST 16, ALT 20, alkaline phosphatase 126, total bilirubin 0.3, albumin 2.3. IMAGING DATA: No current GI imaging is available for review. ASSESSMENT AND PLAN: The patient is a 64-year-old female with past medical history of COPD, osteoporosis, obstructive sleep apnea, diverticulitis requiring sigmoid resection in 2018 and colostomy placement in addition to ulcerative colitis diagnosed in 2014 and in remission since December of 2018, presenting with an acute ulcerative colitis flare in light of surgical reanastomosis of her colon complicated by wound dehiscence from a midline surgical incision. Ulcerative colitis flare. The patient was admitted to the hospital electively for surgical reanastomosis of her colostomy that she has had since mid 2018 for acute bout of diverticulitis requiring surgical resection. Shortly prior to her surgery, she did exhibit some increased abdominal pain and diarrhea concerning for flare and upon evaluation of the colonic mucosa during the surgery, it did seem also consistent with an ulcerative colitis flare. She was subsequently placed on azathioprine in the postoperative period at 150 mg daily (which was her outpatient maintenance dosing), but was not responding well to therapy. However, after being placed on methylprednisolone 20 mg t.i.d., she has had significant improvement in her symptoms with decreased abdominal pain, decreased nausea/vomiting, and hematochezia over the last 24 hours. At this time, her current clinical situation seems to be consistent with an ulcerative colitis flare. This currently responding to steroid therapy. Infectious stool studies so far have been negative for C diff. RECOMMENDATIONS: 1. We will continue patient on methylprednisolone 20 mg t.i.d. for probable ulcerative colitis flare and with the goal of transferring the patient to prednisone orally and continue on prednisone taper in the outpatient setting (with followup prednisone taper of 40 mg x1 week, 30 mg x1 week, 20 mg x1 week, 10 mg x1 week). 2. I would continue azathioprine 150 mg daily at the current dosing. 3. Pain control per primary team. 4. We will continue to monitor the patient for postsurgical infection. 5. Can advance the patient's diet as tolerated. We will continue to follow. Please call with any questions. Job ID: [id number]
[2019-09-18] MEDS: traMADol HCl 50 MG TAB PO SCH ×5 (00:26→23:20)
--- NOTE | 2019-09-18 02:51 | PRG ---
DATE OF SERVICE: 09/18/2019 SUBJECTIVE: The patient remains on the surgical floor. She is postop day #7 from exploratory laparotomy, extensive adhesiolysis, placement of feeding nasojejunal tube, a low colorectal anastomosis with protective ileostomy. The patient has had wound dehiscence requiring wound VAC placement, also has a resolving ileus. The patient was started on clear liquid diet today and has her NG tube clamped. The nurses report no nausea or vomiting currently. The patient has also been started on steroids per the GI service. The patient has had a negative C. diff test also. PHYSICAL EXAMINATION: VITAL SIGNS: Temperature 98.1, heart rate 78, blood pressure 113/69, respirations 18, oxygen saturation 95% on room air. GENERAL: The patient is resting comfortably in bed. She is asleep. VITAL SIGNS: Her respirations look nonlabored and she appears comfortable. ASSESSMENT/PLAN: 1. Postoperative day #7, status post exploratory laparotomy, extensive adhesiolysis, placement of feeding nasojejunal tube and low colorectal anastomosis with protective ileostomy. 2. Ileus, resolving. 3. Midline abdominal wound dehiscence/infection, stable. 4. History of ulcerative colitis, currently on steroids. 5. History of sleep apnea, osteoporosis, diverticulitis and colitis. PLAN: Plan will be to continue clear liquid diet. Encourage out of bed with physical and occupational therapy and discuss placement with patient. Job ID: [id number]
[2019-09-18] MEDS: Acetaminophen 500 MG TAB PO SCH ×4 (06:13→22:59)
[2019-09-18] MEDS: methylPREDNISolone Sod Succ 40 MG VIAL IVP SCH ×3 (06:15→22:56)
[2019-09-18] MEDS: Saccharomyces boulardii 250 MG CAP PO SCH (08:30)
[2019-09-18] MEDS: Gabapentin 300 MG CAP PO SCH ×2 (08:30→20:27)
[2019-09-18] MEDS: guaiFENesin ER 600 MG TAB PO SCH ×2 (08:30→20:27)
[2019-09-18] MEDS: azaTHIOprine 50 MG TAB PO SCH (08:30)
[2019-09-18] MEDS: Aspirin 325 mg Enteric Coated Tablet PO SCH (08:31)
[2019-09-18] MEDS: traMADol HCl 50 MG TAB PO PRN (09:47)
[2019-09-18] MEDS: Sodium Chloride 0.9% 1,000 ML IV SCH (09:48)
--- NOTE | 2019-09-18 12:16 | PDOC.GSPN ---
Surgery Progress Note: Subj - Subjective Narrative: Patient is s/p exploratory laparotomy with adhesiolysis, colostomy takedown, colorectal anastamosis and loop ileostomy formation POD #8. NG tube was clamped yesterday and patient was started on a CLD. She reports doing well over night and only having one short mild episode of nausea and reflux sypmtoms this morning. She reports 100cc ostomy output this morning with gas and feelings of bowel activity. She continues to have BRBPR mixed with mucous and was started on steroids by Dr Robb yesterday for active colitis. She walked 4 times yesterday and once this morning by herself and continues to refuse PT/OT. She denies fever, chills, nausea, vomiting, uncontrolled pain, or abdominal rigidity or distension Surgery Progress Note: Obj - Vital signs Vital signs: Vital Signs - Most Recent Temp Pulse Resp BP Pulse Ox 98.7 F 63 14 143/83 H 96 09/18/19 11:08 09/18/19 11:08 09/18/19 11:08 09/18/19 11:08 09/18/19 11:08 - Physical Exam General: no distress, well developed, well nourished ENT: other (NG tube removed at bedside) Respiratory: normal expansion, normal respiratory effort Abdomen: soft, non tender, nondistended, positive bowel sounds Psychiatric: memory intact, oriented to time, oriented to person, oriented to place, speech is normal Wound: dressing clean,dry,intact, healing well Surgery Progress Note: Results - Labs Result Diagrams: 09/20/19 04:56 09/17/19 04:51 Surgery Progress Note: A/P - Plan Plan: Assessment: 1. S/P exploratory laparotomy with adhesiolysis, colostomy takedown, colorectal anastomosis, and ileostomy formation POD #8 2. Midline abdominal wound infection, s/p washout and wound vac placement 3. Active colitis, GI following 4. Hx of UC, COPD, ELODIA, Osteoporosis, diverticulitis Plan: NG tube was removed at bedside during rounds, as patient is tolerating diet and has ostomy output with good bowel sounds. Will advance to regular diet today. Will stop IV fluids and place on saline lock. Continue to encourage frequent ambulation, TID at minimum to stimulate bowel function. Discussed possible future admission to rehab for continued wound care and PT. Will reevaluate midline wound tomorrow at wound vac change. Patient was seen with Dr Cyr at morning rounds. Plan was discussed with him and patient and all are in agreement Addendum - Physician - Physician Attestation Date/Time: 09/21/19 1011 I personally performed or re-performed the physical examination and medical decision making. I have verified all student documentation or findings, including history, physical exam and/or medical decision making.
[2019-09-18] MEDS: Enoxaparin Sodium 40 MG/0.4 ML SYRINGE SC SCH (20:22)
[2019-09-18] MEDS: traZODone HCl 50 MG TAB PO SCH (20:23)
--- NOTE | 2019-09-18 20:24 | PRG ---
DATE OF SERVICE: 09/18/2019 REASON FOR CONSULTATION: Ulcerative colitis flare, status post surgical reanastomosis of the colon. SUBJECTIVE: The patient states that she continues to improve day by day with lessened abdominal pain today in addition to lessened frequency of diarrhea and hematochezia. Currently, she denies any nausea, vomiting, fevers, chills, hematemesis, melena, dysphagia, or odynophagia. She was advanced to a more regular diet today and has been able to tolerate without difficulty. OBJECTIVE: VITAL SIGNS: Temperature 98.1, pulse 61, blood pressure 120/73, respiratory rate 18, saturating 97% on room air. GENERAL: The patient is lying in bed, in no acute distress. Alert and oriented x4. CARDIOVASCULAR: Regular rate and rhythm. RESPIRATORY: Clear to auscultation bilaterally. ABDOMEN: Normoactive bowel sounds. Soft. Mild tenderness to palpation around the wound VAC site. EXTREMITIES: No cyanosis, clubbing, or edema. LABORATORY DATA: No current studies are available for review. IMAGING DATA: No current GI imaging is available for review. ASSESSMENT AND PLAN: The patient is a 64-year-old female with past medical history of chronic obstructive pulmonary disease, osteoporosis, obstructive sleep apnea, diverticulitis requiring sigmoid resection in 2018, and colostomy placement in addition to ulcerative colitis, presenting with an ulcerative colitis flare in light of removal of immunosuppression prior to surgical near reanastomosis of her colon, now complicated by wound dehiscence of the midline surgical incision. Ulcerative colitis flare. With the institution of steroid management, the patient has had improvement of her abdominal pain, diarrhea, and hematochezia over the last 24 to 48 hours showing response to the ulcerative colitis flare. She has also been able to tolerate a more solid diet today without difficulty or increased pain. At this point, she seems to be responding to more medical management with IV steroid administration in addition to azathioprine and does not require escalation of care to include a biologic at this time. RECOMMENDATIONS: 1. Would continue the patient on methylprednisolone 20 mg t.i.d. for probable ulcerative colitis flare with the ultimate goal of placing the patient on a prednisone taper on discharge and following up in the GI Clinic (would initiate prednisone taper of 40 mg x1 week, 30 mg x1 week, 20 mg x1 week, 10 mg x1 week). 2. Continue azathioprine 150 mg daily. 3. Pain control per primary team. 4. Wound VAC management per primary team. 5. Advance the patient's diet as tolerated. 6. Would have the patient follow up in the GI Clinic within 2 to 3 weeks of discharge for further management of her ulcerative colitis. We will continue to follow peripherally at this point with no additional recommendations. Please call with any questions. Job ID: [id number]
--- NOTE | 2019-09-19 01:48 | PRG ---
DATE OF SERVICE: 09/19/2019 SUBJECTIVE: The patient remains on the surgical floor. She is postop day 8, status post exploratory laparotomy with adhesiolysis, colostomy takedown, colorectal anastomosis, and loop ileostomy. The patient reportedly had a good day today. She is tolerating a regular diet. She is ambulating, and her pain is well controlled. She remains on steroids and azathioprine for medical management of her ulcerative colitis flare. PHYSICAL EXAMINATION: VITAL SIGNS: Stable. The patient is afebrile. The patient is asleep at the time of my visit. The nurses reported no issues. I did not awaken her. ASSESSMENT: 1. Status post exploratory laparotomy with adhesiolysis, colostomy takedown, colorectal anastomosis, and ileostomy. 2. Midline abdominal wound infection, status post washout and wound VAC placement. 3. Acute ulcerative colitis flare, stable with medical management by GI. PLAN: Plan will be to continue supportive care, transition her steroids to prednisone taper at time of discharge, continue wound VAC, and discuss placement. Job ID: [id number]
[2019-09-19] MEDS: Acetaminophen 500 MG TAB PO SCH ×4 (05:54→23:52)
[2019-09-19] MEDS: methylPREDNISolone Sod Succ 40 MG VIAL IVP SCH ×3 (05:54→21:04)
[2019-09-19] MEDS: traMADol HCl 50 MG TAB PO SCH ×4 (05:55→23:52)
[2019-09-19] MEDS: traMADol HCl 50 MG TAB PO PRN ×2 (05:57→15:07)
[2019-09-19 06:10] LABS: White Blood Cell (WBC) Count 9.1 thou/uL (4.8-10.8)
[2019-09-19 06:41] LABS: Hemoglobin 9.2 g/dL (12.0-16.0); Mean Corpuscular HGB CONC 31.6 g/dL (32.0-36.0); Mean Corpuscular Hemoglobin 30.1 pg (27.0-31.0); Mean Corpuscular Volume 95.2 fL (78.0-98.0); Mean Platelet Volume 7.1 fL (7.4-10.4); Platelet Count 744 thou/uL (130-400); RBC Distribution Width 14.1 % (11.5-14.5); Red Blood Cell (RBC) Count 3.05 mill/uL (4.20-5.40)
[2019-09-19] MEDS: guaiFENesin ER 600 MG TAB PO SCH ×2 (08:09→20:15)
[2019-09-19] MEDS: Aspirin 325 mg Enteric Coated Tablet PO SCH (08:09)
[2019-09-19] MEDS: Saccharomyces boulardii 250 MG CAP PO SCH (08:09)
[2019-09-19] MEDS: azaTHIOprine 50 MG TAB PO SCH (08:10)
[2019-09-19 08:20] LABS: Band 6 % (5-11); Hypochromia SLIGHT = 6-15 cells (100X) (0-5/hpf); Lymphocytes 10 % (21-51); MDiff Complete? YES; Metamyelocyte 4 % (0-0); Monocytes 9 % (0-10); Myelocyte 2 % (0-0); Neutrophil 69 % (42-75); Platelet Morphology Comment Appears Increased; Polychromasia SLIGHT = 2-3 cells (100X) (0-2/hpf)
[2019-09-19] MEDS: Gabapentin 300 MG CAP PO SCH ×2 (09:04→20:15)
[2019-09-19] MEDS: Morphine 4 MG/ML VIAL SLOW IVP PRN (10:52)
[2019-09-19] MEDS: Lidocaine 4% Topical Sol 50 ML BOT TOP SCH (11:09)
--- NOTE | 2019-09-19 11:39 | PDOC.GSPN ---
Surgery Progress Note: Subj - Subjective Narrative: Patient is s/p exploratory laparotomy with adhesiolysis, colostomy takedown, colorectal anastamosis and ileostomy formation POD #9. NG tube was removed yesterday and patient was started on regular diet. She states she did well overnight and is tolerating regular diet. She reports frequent ambulation in her room and in the hallway, moderate stool and gas out of her ostomy, and continued bloody and mucous anal discharge. GI recommended continuing methylprednisilone while inpatient and beginning a prednisone taper upon discharge. She currently denies nausea, vomiting, abdominal pain, fever, chills , difficulty sleeping. Surgery Progress Note: Obj - Vital signs Vital signs: Vital Signs - Most Recent Temp Pulse Resp BP Pulse Ox 98.1 F 63 16 145/81 H 98 09/19/19 10:45 09/19/19 10:45 09/19/19 10:45 09/19/19 10:45 09/19/19 10:45 - Physical Exam General: no distress, well developed, well nourished Respiratory: normal expansion, normal respiratory effort Abdomen: soft, non tender, nondistended, other (Ostomy with some stool in bag, recently emptied) Psychiatric: memory intact, oriented to time, oriented to person, oriented to place, speech is normal Wound: dressing clean,dry,intact, healing well, wound vac (wound vac in place and will be changed by wound care today) Surgery Progress Note: Results - Labs Result Diagrams: 09/20/19 04:56 09/17/19 04:51 Lab results: Laboratory Results - last 24 hr 09/19/19 09/19/19 05:11 09:16 WBC 9.1 RBC 3.05 L Hgb 9.2 L Hct 29.0 L MCV 95.2 MCH 30.1 MCHC 31.6 L RDW 14.1 Plt Count 744 H MPV 7.1 L Neutrophils % (Manual) 69 Band Neuts % (Manual) 6 Lymphocytes % (Manual) 10 L Monocytes % (Manual) 9 Metamyelocytes % (Man) 4 H Myelocytes % 2 H Neutrophils # Not Reportable Lymphocytes # Not Reportable Hypochromia SLIGHT = 6-15 cells Plt Morphology Comment Appears Increased H Polychromasia SLIGHT = 2-3 cells Prealbumin 21.0 Surgery Progress Note: A/P - Plan Plan: Assessment: 1. S/P exploratory laparotomy with adhesiolysis, colostomy takedown, colorectal anastomosis, and ileostomy formation POD #9 2. Midline abdominal wound infection, s/p washout and wound vac placement 3. Active colitis 4. Hx of UC, COPD, ELODIA, Osteoporosis, diverticulitis Plan: Will continue regular diet as patient is tolerating it well. Continue to encourage frequent ambulation. Will continue pain regimen. Will discuss with patient and top case assembler options for wound care upon discharge, as patient will not qualify for inpatient rehab. Will anticipate discharge tomorrow with home health wound care or follow-up in the wound care clinic if possible. Will follow GI recommendations for prednisone taper upon discharge. Patient care was discussed with Dr Cyr during morning report. Patient was seen by the trauma team during morning rounds Addendum - Physician - Physician Attestation Date/Time: 09/21/19 1012 I personally performed or re-performed the physical examination and medical decision making. I have verified all student documentation or findings, including history, physical exam and/or medical decision making.
[2019-09-19] MEDS: Ipratropium Bromide 2.5 ml Neb NEB SCH ×3 (13:20→23:24)
[2019-09-19] MEDS: Enoxaparin Sodium 40 MG/0.4 ML SYRINGE SC SCH (20:14)
[2019-09-19] MEDS: traZODone HCl 50 MG TAB PO SCH (20:14)
--- NOTE | 2019-09-19 23:55 | PRG ---
DATE OF SERVICE: 09/19/2019 SUBJECTIVE: The patient remains on the surgical floor. She is postop day #9 status post exploratory laparotomy with adhesiolysis, colostomy takedown, colorectal anastomosis, and loop ileostomy. This evening, the patient reports that she had a good day that her pain is controlled. She is tolerating a regular diet and she has been ambulating in the hallways more frequently. She is currently awaiting placement, which is expected to happen as soon as tomorrow possibly. She has been transitioned to oral steroids per GI recommendations for her ulcerative colitis flare. PHYSICAL EXAMINATION: VITAL SIGNS: Stable. The patient is afebrile. GENERAL: The patient is resting comfortably in bed. She is awake, alert, conversant appropriate. LUNGS: Respirations are nonlabored. ABDOMEN: Minimally tender, primarily along the midline as expected due to her wound dehiscence and wound VAC placement. Her wound VAC appears to be functioning properly. Her ostomy has stool and gas in it. ASSESSMENT: 1. Status post exploratory laparotomy with adhesiolysis, colostomy takedown, colorectal anastomosis, and ileostomy. 2. Midline abdominal wound infection, status post washout and wound VAC placement. 3. Acute ulcerative colitis flare, stable with medical management by GI. PLAN: Plan will be to continue supportive care. Await final placement decision and continue steroids per GI. Job ID: [id number]
[2019-09-20 05:13] LABS: #Lymphocytes 0.7 thou/uL (1.20-3.40); #Monocytes 0.9 thou/uL (0.11-0.59); #Neutrophils 6.5 thou/uL (1.40-6.50); %Basophils 0.2 % (0.0-1.0); %Eosinophils 0.4 % (0.0-10.0); %Lymphocytes 8.1 % (21.0-51.0); %Monocytes 10.7 % (0.0-10.0); %Neutrophils 80.5 % (42.0-75.0); Hemoglobin 8.9 g/dL (12.0-16.0); Mean Corpuscular HGB CONC 32.5 g/dL (32.0-36.0); Mean Corpuscular Hemoglobin 30.6 pg (27.0-31.0); Mean Corpuscular Volume 94.3 fL (78.0-98.0); Mean Platelet Volume 6.9 fL (7.4-10.4); Platelet Count 734 thou/uL (130-400); RBC Distribution Width 14.1 % (11.5-14.5); White Blood Cell (WBC) Count 8.1 thou/uL (4.8-10.8)
[2019-09-20] MEDS: traMADol HCl 50 MG TAB PO SCH ×3 (06:13→18:14)
[2019-09-20] MEDS: Acetaminophen 500 MG TAB PO SCH ×3 (06:13→18:14)
[2019-09-20] MEDS: methylPREDNISolone Sod Succ 40 MG VIAL IVP SCH ×3 (06:14→21:39)
[2019-09-20] MEDS: Ipratropium Bromide 2.5 ml Neb NEB SCH ×3 (07:57→19:17)
[2019-09-20] MEDS: Gabapentin 300 MG CAP PO SCH ×2 (08:35→20:14)
[2019-09-20] MEDS: guaiFENesin ER 600 MG TAB PO SCH ×2 (08:36→20:14)
[2019-09-20] MEDS: azaTHIOprine 50 MG TAB PO SCH (08:36)
[2019-09-20] MEDS: Aspirin 325 mg Enteric Coated Tablet PO SCH (08:36)
[2019-09-20] MEDS: Saccharomyces boulardii 250 MG CAP PO SCH (08:36)
[2019-09-20] MEDS: Lidocaine 4% Topical Sol 50 ML BOT TOP SCH (10:25)
[2019-09-20] MEDS: Ferrous Sulfate 325 MG TAB PO SCH (18:14)
[2019-09-20] MEDS: Ascorbic Acid 500 mg Chewable Tablet PO SCH (18:14)
[2019-09-20] MEDS: Enoxaparin Sodium 40 MG/0.4 ML SYRINGE SC SCH (20:14)
[2019-09-20] MEDS: traZODone HCl 50 MG TAB PO SCH (20:14)
[2019-09-21] MEDS: Acetaminophen 500 MG TAB PO SCH ×3 (00:15→12:00)
[2019-09-21] MEDS: traMADol HCl 50 MG TAB PO SCH ×3 (00:15→12:00)
[2019-09-21] MEDS: Ipratropium Bromide 2.5 ml Neb NEB SCH ×3 (00:18→13:19)
--- NOTE | 2019-09-21 02:51 | PRG ---
DATE OF SERVICE: 09/21/2019 SUBJECTIVE: The patient remains on the surgical floor. She is status post exploratory laparotomy with adhesiolysis, colostomy takedown, colorectal anastomosis, and a loop ileostomy. She is postop day #10 from this procedure. She is currently scheduled to be discharged home tomorrow after her wound VAC change. She does have a home VAC that has been approved and reportedly here on the floor. She is tolerating a diet. Her ostomy is functioning and her pain is controlled. She has begun her oral steroid taper per GI. OBJECTIVE: VITAL SIGNS: Stable. The patient is afebrile. GENERAL: The patient is asleep at the time my visit. I did not awaken her. The nurses report no issues. She appears comfortable. RESPIRATIONS: Appear nonlabored. ASSESSMENT/PLAN: 1. Status post exploratory laparotomy with adhesiolysis, colostomy takedown, colorectal anastomosis, and ileostomy. 2. Midline abdominal wound infection, status post washout and wound VAC placement. 3. Active ulcerative colitis flare, stable with medical management by GI. PLAN: Will be to continue supportive care, likely discharge home tomorrow. Follow up with GI and with Dr. Cyr. Job ID: [id number]
[2019-09-21] MEDS: methylPREDNISolone Sod Succ 40 MG VIAL IVP SCH ×2 (05:57→14:07)
--- NOTE | 2019-09-21 08:24 | CON ---
DATE OF CONSULTATION: 09/20/2019 SUBJECTIVE: Ms. Liu is a 64-year-old female who is status post exploratory laparotomy with adhesiolysis, colostomy takedown, colorectal anastomosis and ileostomy day 10. The patient with midline abdominal wound infection with wound opening and wound VAC placement, acute ulcerative colitis. The patient currently tolerated with her regular diet. Her ileostomy working good with some blood in the stool. She developed no fever or shortness of breath. She has been ambulating well around the floor. The patient is waiting for placement in [facility] facility due to difficulty of wound care and the patient going home. PHYSICAL EXAMINATION: GENERAL: The patient lying in bed comfortable with no acute respiratory distress. VITAL SIGNS: Temperature 98.0, heart rate 78, respiratory rate 14, O2 saturation 97% on room air, and blood pressure 123/76. LUNGS: Clear bilaterally. HEART: Regular rate and rhythm. ABDOMEN: Incision midline is under wound VAC. Abdomen is soft. Apparently, no signs of peritonitis. Bowel sounds active. Ileostomy has some stool and . EXTREMITIES: Neurovascularly intact x4. NEUROLOGICAL: No focal neurological deficits. LABORATORY DATA: Hemoglobin is stable at 8.9 today. Prealbumin is 21. ASSESSMENT: Status post exploratory laparotomy with adhesiolysis, colostomy takedown, colorectal anastomosis and ileostomy. Midline abdominal wound infection, open wound with wound VAC placement and wound care. Acute ulcerative colitis, stable. PLAN: Plan will be to continue supportive care. Continue ulcerative colitis medical management per GI. Continue wound care and wound VAC. The patient denied rehabilitation and penitentiary facility today. Anticipate discharge home with home health or wound care in wound care clinic. The patient was seen with Dr. Cyr on round this morning. Job ID: [id number]
[2019-09-21] MEDS: guaiFENesin ER 600 MG TAB PO SCH (09:00)
[2019-09-21] MEDS: Saccharomyces boulardii 250 MG CAP PO SCH (09:01)
[2019-09-21] MEDS: Ferrous Sulfate 325 MG TAB PO SCH (09:01)
[2019-09-21] MEDS: azaTHIOprine 50 MG TAB PO SCH (09:01)
[2019-09-21] MEDS: Gabapentin 300 MG CAP PO SCH (09:01)
[2019-09-21] MEDS: Aspirin 325 mg Enteric Coated Tablet PO SCH (09:01)
[2019-09-21] MEDS: Ascorbic Acid 500 mg Chewable Tablet PO SCH (09:02)
[2019-09-21] MEDS: traMADol HCl 50 MG TAB PO PRN (09:12)
[2019-09-21] MEDS: Morphine 4 MG/ML VIAL SLOW IVP PRN (09:13)
[2019-09-21] MEDS: Lidocaine 4% Topical Sol 50 ML BOT TOP SCH (09:13)
[2019-09-21 12:02] VITALS: BP 127/83; TEMP 97.8
== END 2019-09-21 15:06 | disposition home or self-care (01) | DRG 330 ==
LOC: SURG A 09-10 05:44
PROVIDERS: ADMIT Surgery; ATTEND Surgery
PROC: 0DNU0ZZ Release Omentum, Open Approach (ICD-10-PCS; principal; 2019-09-10)
PROC: 0DSL0ZZ Reposition Transverse Colon, Open Approach (ICD-10-PCS; 2019-09-10)
PROC: 0DHA3UZ Insertion of Feeding Device into Jejunum, Percutaneous Approach (ICD-10-PCS; 2019-09-10)
PROC: 0D1B0Z4 Bypass Ileum to Cutaneous, Open Approach (ICD-10-PCS; 2019-09-10)
PROC: 0DBP0ZZ Excision of Rectum, Open Approach (ICD-10-PCS; 2019-09-10)
DX: Z43.3 Encounter for attention to colostomy (principal); J98.11 Atelectasis; K56.7 Ileus, unspecified; K51.90 Ulcerative colitis, unspecified, without complications; T81.49XA Infection following a procedure, other surgical site, initial encounter; K66.0 Peritoneal adhesions (postprocedural) (postinfection); D64.9 Anemia, unspecified; E83.42 Hypomagnesemia; E87.6 Hypokalemia; M81.0 Age-related osteoporosis without current pathological fracture; R00.0 Tachycardia, unspecified; J44.9 Chronic obstructive pulmonary disease, unspecified; G47.33 Obstructive sleep apnea (adult) (pediatric); Z96.611 Presence of right artificial shoulder joint; Z88.8 Allergy status to other drugs, medicaments and biological substances; Z89.421 Acquired absence of other right toe(s); Z98.51 Tubal ligation status
CPT/HCPCS: 36415; 36416; 71045; 74018; 74177; 80048; 80053; 82533; 83036; 83605; 83735; 83880; 84100; 84134; 85007; 85025; 85027; 87324; 87449; 88304; 93005; 93010; 94640; C9113; J0670; J0694; J1100; J1650; J1720; J1885; J2001; J2250; J2270; J2405; J2550; J2704; J2920; J3010; J3475; J3490; J7050; J7500; P9045; Q0162; Q9967; S0028

== ENCOUNTER 2019-09-28 08:01 | Emergency (ER) | payer BC ==
[2019-09-28 09:22] LABS: Hemoglobin 10.1 g/dL (12.0-16.0); Mean Corpuscular HGB CONC 32.4 g/dL (32.0-36.0); Mean Corpuscular Hemoglobin 31.2 pg (27.0-31.0); Mean Corpuscular Volume 96.3 fL (78.0-98.0); Mean Platelet Volume 7.1 fL (7.4-10.4); Platelet Count 693 thou/uL (130-400); Red Blood Cell (RBC) Count 3.25 mill/uL (4.20-5.40); White Blood Cell (WBC) Count 10.2 thou/uL (4.8-10.8)
[2019-09-28 09:50] LABS: Band 47 % (5-11); Eosinophils 6 % (0-10); Lymphocytes 7 % (21-51); MDiff Complete? YES; Metamyelocyte 3 % (0-0); Monocytes 6 % (0-10); Myelocyte 1 % (0-0); Neutrophil 30 % (42-75); Toxic Granulation SLIGHT; Vacuoles SLIGHT
[2019-09-28 09:55] LABS: ALT (SGPT) 18 U/L (8-55); AST (SGOT) 13 U/L (5-34); Albumin 3.2 g/dL (3.4-4.8); Alkaline Phosphatase 93 U/L (40-110); Anion Gap 16 mmol/L (10-20); BUN (Urea Nitrogen) 15 mg/dL (9.8-20.1); Bilirubin, Total 0.4 mg/dL (0.2-1.2); Calc. Creatinine Clearance 0 mL/min (70-130); Calcium 9.8 mg/dL (7.8-10.44); Carbon Dioxide 25 mmol/L (23-31); Chloride 99 mmol/L (98-107); Estimated GFR-MDRD 72; Globulin 2.9 g/dL (2.4-3.5); Glucose 104 mg/dL (80-115); Potassium 4.1 mmol/L (3.5-5.1); Protein, Total 6.1 g/dL (6.0-8.3); Sodium 136 mmol/L (136-145)
[2019-09-28] MEDS ORDERED: Ketorolac Tromethamine 30 MG/ML VIAL ONE (10:17)
[2019-09-28] MEDS ORDERED: Iopamidol-370 76% 500 ML 1 ML ONE (10:27)
[2019-09-28] MEDS ORDERED: traMADol HCl 50 MG TAB ONE (10:43)
--- NOTE | 2019-09-28 10:48 | CT ---
CT Abdomen Pelvis W Con History: Leaking ileostomy Comparison: CT abdomen and pelvis September 15, 2019 Findings: Lung bases are clear. No pericardial effusion. Large midline soft tissue defect with wound VAC. Right lower quadrant ileostomy is in place. No evidence for bowel obstruction. There is suture at the rectal stump. No hydronephrosis. The aortoiliac contour is normal. Large left renal cyst. Adrenal glands are unrema rkable. No free intraperitoneal gas is appreciated. Small loop of bowel interposed between the right anterior abdominal wall and anterior margin of the liver. No intrahepatic or extra hepatic biliary dilatation. Pancreas is unremarkable. There is cement within lower thoracic spine compression fractures with a T12 compression fracture whi ch does not contain cemented with low-grade retropulsion of the posterior superior endplate 2 - 3 mm. Impression: 1. Large midline anterior abdominal wound with indwelling wound VAC sponge. 2. No definite fistulous communication between a loop of small bowel and the anterior abdominal wound although there is a very small peripherally enhancing collection along the right side of the wound axial image 26 and 27 which contains a small amount of gas. Overall this anterior abdominal wall germaine ection has slightly decreased. 2. Size decreased peripherally enhancing fluid collection along the undersurface of the right rectus sheath axial image [id number] which is the most part decompressed and appears to communicate with the wound VAC.
== END 2019-09-28 13:16 | disposition home or self-care (01) ==
LOC: ERS 08:01
DX: Z43.2 Encounter for attention to ileostomy (principal); M81.0 Age-related osteoporosis without current pathological fracture; J44.9 Chronic obstructive pulmonary disease, unspecified; G47.30 Sleep apnea, unspecified; Z79.51 Long term (current) use of inhaled steroids; Z79.899 Other long term (current) drug therapy
CPT/HCPCS: 36415; 74177; 80053; 83605; 85025; 87040; 96361; 96374; J1885; Q9967

== ENCOUNTER 2020-07-03 08:15 | Day surgery (SDC) | payer BC ==
[~2020-07-03 08:15] MED LIST: Acetaminophen 500 MG TAB PO PRN; Ustekinumab 390 MG in Sodium Chloride 0.9% 250 ML 172 ML IV SCH; diphenhydrAMINE 25 MG CAP PO PRN
[2020-07-03 10:40] VITALS: BP 131/86; TEMP 98.5
== END 2020-07-03 12:41 | disposition home or self-care (01) ==
LOC: ONC/OP 08:15
PROVIDERS: ATTEND Internal Medicine
DX: K51.90 Ulcerative colitis, unspecified, without complications (principal); Z88.1 Allergy status to other antibiotic agents; Z88.5 Allergy status to narcotic agent
CPT/HCPCS: 96413; J3358; J7050; Q0163

== ENCOUNTER 2024-05-10 12:27 | Inpatient (IN) | payer BC, MEDICARE ==
[2024-05-10 13:23] LABS: Hematocrit 40.7 % (36.0-47.0); Mean Corpuscular HGB CONC 34.4 g/dL (32.0-36.0); Mean Corpuscular Hemoglobin 30.2 pg (27.0-31.0); Mean Corpuscular Volume 87.9 fL (78.0-98.0); Mean Platelet Volume 10.8 fL (7.4-10.4); Platelet Count 516 10x3/uL (130-400); RBC Distribution Width 14.2 % (11.5-14.5); Red Blood Cell (RBC) Count 4.63 mill/uL (4.20-5.40)
[2024-05-10 13:26] LABS: Bacteria/HPF 3+ HPF (None Seen); Bilirubin Negative (Negative); Blood, Urine 2+ (Negative); CAUTI Indications for Culture Dysuria,urgency,freq; Clarity Turbid (Clear); Glucose, Urine (Dipstick) Normal (Negative); Ketone, Urine Negative (Negative); Leukocyte 500 Leu/uL (Negative); Nitrite Negative (Negative); Protein, Urine (Dipstick) 30 mg/dL (Neg-Trace); RBC/HPF 0-3 HPF (0-3); Specific Gravity, Urine 1.003 (1.002-1.036); Squamous Epithelial 0-3 HPF (0-3); Urobilinogen Normal mg/dL (Less than 2); WBC/HPF 21-50 HPF (0-3); pH, Urine 5.5 (5.0-9.0)
[2024-05-10 13:27] LABS: Urine Culture Reflex Yes Yes
[2024-05-10 13:41] LABS: ALT (SGPT) 31 U/L (8-55); AST (SGOT) 35 U/L (5-34); Albumin 2.3 g/dL (3.4-4.8); Alkaline Phosphatase 193 U/L (40-110); Anion Gap 20 mmol/L (10-20); BUN (Urea Nitrogen) 103 mg/dL (9.8-20.1); Bilirubin, Total 0.6 mg/dL (0.2-1.2); Calc. Creatinine Clearance 0 mL/min (70-130); Calcium 9.2 mg/dL (7.8-10.44); Carbon Dioxide 19 mmol/L (23-31); Chloride 93 mmol/L (98-107); Estimated GFR 10; Glucose 96 mg/dL (80-115); Potassium 5.1 mmol/L (3.5-5.1); Protein, Total 7.3 g/dL (5.8-8.1); Sodium 127 mmol/L (136-145)
[2024-05-10 14:02] LABS: Band 5 % (5-11); Lymphocytes 5 % (21-51); Metamyelocyte 1 % (0-0); Monocytes 10 % (0-10); Neutrophil 79 % (42-75); Platelet Adequacy Comment Platelets Increased; Target Cells SLIGHT = 2-5 cells HPF (0-1)
[2024-05-10] MEDS ORDERED: cefTRIAXone (ROCEPHIN) 2 GM VIAL ONE (14:25)
[2024-05-10] MEDS ORDERED: Sodium Chloride 0.9% 100 ML ONE (14:25)
[2024-05-10] MEDS ORDERED: Ondansetron PF 4 MG/2 ML Vial ONE (15:34)
[2024-05-10] MEDS ORDERED: Morphine 2 MG/ML VIAL ONE (15:34)
[2024-05-10] MEDS ORDERED: Sodium Chloride 0.9% 1,000 ML IV SCH (15:45)
[2024-05-10 16:02] LABS: Lactic Acid 1.28 mmol/L (0.5-2.2)
[2024-05-10] MEDS: Dextrose 5 % And 0.9 % NaCl 1,000 ML IV SCH (17:42)
[2024-05-10 17:53] VITALS: BMI 28.5
[2024-05-10] MEDS: Acetaminophen 500 MG TAB PO SCH (17:55)
[2024-05-10] MEDS: traMADol HCl 50 MG TAB PO SCH (17:56)
[2024-05-10] MEDS: Ascorbic Acid 500 mg Chewable Tablet PO SCH (22:06)
[2024-05-10] MEDS: traZODone HCl 50 MG TAB PO SCH (22:06)
[2024-05-10] MEDS: Gabapentin 300 MG CAP PO SCH (22:06)
[2024-05-11] MEDS: traMADol HCl 50 MG TAB PO SCH (02:47)
[2024-05-11 05:55] LABS: Hematocrit 32.5 % (36.0-47.0); Hemoglobin 11.2 g/dL (12.0-16.0); Mean Corpuscular HGB CONC 34.5 g/dL (32.0-36.0); Mean Corpuscular Hemoglobin 29.9 pg (27.0-31.0); Mean Corpuscular Volume 86.7 fL (78.0-98.0); Mean Platelet Volume 11.1 fL (7.4-10.4); Platelet Count 425 10x3/uL (130-400); RBC Distribution Width 14.5 % (11.5-14.5); Red Blood Cell (RBC) Count 3.75 mill/uL (4.20-5.40)
[2024-05-11 06:25] LABS: Anisocytosis SLIGHT = 6-15 cells HPF (0-5); Band 2 % (5-11); Hypochromia SLIGHT = 6-15 cells HPF (0-5); Lymphocytes 3 % (21-51); Metamyelocyte 1 % (0-0); Microcytosis SLIGHT = 6-15 cells HPF (0-5); Monocytes 2 % (0-10); Neutrophil 92 % (42-75); Ovalocytes SLIGHT = 2-5 cells HPF (0-1); Platelet Adequacy Comment Platelets Normal; Polychromasia SLIGHT = 2-3 cells HPF (0-2); Target Cells SLIGHT = 2-5 cells HPF (0-1); Tear Drops SLIGHT = 2-5 cells HPF (0-1); Toxic Granulation SLIGHT
[2024-05-11 07:47] LABS: Chloride 102 mmol/L (98-107); Potassium 4.5 mmol/L (3.5-5.1); Sodium 130 mmol/L (136-145)
[2024-05-11 07:48] LABS: Glucose 128 mg/dL (80-115)
[2024-05-11 07:49] LABS: Anion Gap 16 mmol/L (10-20); Carbon Dioxide 17 mmol/L (23-31)
[2024-05-11 07:52] LABS: BUN (Urea Nitrogen) 98 mg/dL (9.8-20.1); Calc. Creatinine Clearance 15 mL/min (70-130); Estimated GFR 10
[2024-05-11] MEDS ORDERED: Mometasone 100 MCG/Formoterol 5 MCG 120 PUFF INHALER INH PRN (09:00)
[2024-05-11] MEDS: Aspirin 325 mg Enteric Coated Tablet PO SCH (09:17)
[2024-05-11] MEDS: Enoxaparin 30 MG (0.3 mL) SYRINGE SC SCH (09:17)
[2024-05-11] MEDS ORDERED: Acetaminophen/Codeine 30-300mg Tablet PO PRN (09:59)
[2024-05-11] MEDS: Dextrose 5 % And 0.9 % NaCl 1,000 ML IV SCH (11:08)
[2024-05-11 12:57] VITALS: BMI 28.5
[2024-05-11] MEDS: Ipratropium Bromide 2.5 ml Neb NEB SCH (13:51)
[2024-05-11] MEDS: cefTRIAXone\\ROCEPHIN 2 GM in Sodium Chloride 0.9% 100 ML IVPB SCH (15:41)
[2024-05-11] MEDS: Ondansetron PF 4 MG/2 ML Vial IVP PRN (15:44)
[2024-05-11] MEDS: Ipratropium/Albuterol 3 ML NEB NEB SCH ×2 (16:37→18:29)
[2024-05-11] MEDS: Mometasone 100 MCG/Formoterol 5 MCG 120 PUFF INHALER INH PRN (18:33)
[2024-05-11] MEDS ORDERED: VITAMIN D3 PO SCH (21:00)
[2024-05-11] MEDS ORDERED: CALCIUM CARBONATE PO SCH (21:00)
[2024-05-11] MEDS ORDERED: [UNRECOGNIZED DRUG - OTHER] PO SCH (21:00)
[2024-05-11] MEDS: Calcium Carbonate 600 MG + Vit D TAB PO SCH (23:01)
[2024-05-11] MEDS: DULoxetine 20 MG CAP PO SCH (23:02)
[2024-05-11] MEDS: Albuterol 200 PUFF (6.7GM INHALER) INH PRN (23:11)
[2024-05-12] MEDS: Floranex 1 GM Packet PO SCH (07:59)
[2024-05-12] MEDS: Magnesium Oxide 250 MG TAB PO SCH (07:59)
[2024-05-12] MEDS: Fluticasone Propionate Nasal Spray 16 gm Bottle NASAL SCH (08:02)
[2024-05-12] MEDS ORDERED: Non-Formulary Item 1 EACH (L.Acidoph,Paracasei, B.Lactis [Probiotic] 1 EACH Capsule) PO SCH (09:00)
[2024-05-12] MEDS ORDERED: Non-Formulary Item 1 EACH (Tiotropium Bromide [Spiriva Handihaler] 18 MCG Cap.W.Dev) PO SCH (09:00)
[2024-05-12] MEDS ORDERED: Non-Formulary Item 1 EACH (Fluticasone Propionate [Fluticasone Propionate] 50 MCG Blst.W. NASAL SCH (09:00)
[2024-05-12 10:39] LABS: Hematocrit 31.9 % (36.0-47.0); Hemoglobin 10.7 g/dL (12.0-16.0); Mean Corpuscular HGB CONC 33.5 g/dL (32.0-36.0); Mean Corpuscular Hemoglobin 29.8 pg (27.0-31.0); Mean Corpuscular Volume 88.9 fL (78.0-98.0); Mean Platelet Volume 10.4 fL (7.4-10.4); Platelet Count 492 10x3/uL (130-400); RBC Distribution Width 15.3 % (11.5-14.5); Red Blood Cell (RBC) Count 3.59 mill/uL (4.20-5.40)
[2024-05-12 10:46] LABS: Albumin 1.7 g/dL (3.4-4.8); Anion Gap 14 mmol/L (10-20); BUN (Urea Nitrogen) 88 mg/dL (9.8-20.1); BUN/Creatinine Ratio 20.23; Calc. Creatinine Clearance 15 mL/min (70-130); Calcium 8.1 mg/dL (7.8-10.44); Carbon Dioxide 16 mmol/L (23-31); Chloride 107 mmol/L (98-107); Estimated GFR 11; Glucose 158 mg/dL (80-115); Phosphorus 5.8 mg/dL (2.3-4.7); Potassium 4.4 mmol/L (3.5-5.1); Sodium 133 mmol/L (136-145)
[2024-05-12 12:09] LABS: Anisocytosis SLIGHT = 6-15 cells HPF (0-5); Hypochromia SLIGHT = 6-15 cells HPF (0-5); Lymphocytes 5 % (21-51); Macrocytosis SLIGHT = 6-15 cells HPF (0-5); Monocytes 12 % (0-10); Neutrophil 82 % (42-75); Platelet Adequacy Comment Platelets Increased; Polychromasia SLIGHT = 2-3 cells HPF (0-2); Reactive Lymphocytes 1 % (0-10)
[2024-05-12] MEDS: Albumin 25% 25 GM (100 mL) BOT IVPB SCH (17:46)
[2024-05-12] MEDS: Mometasone 100 MCG/Formoterol 5 MCG 120 PUFF INHALER INH SCH (18:43)
[2024-05-13 04:17] LABS: Hemoglobin 10.2 g/dL (12.0-16.0); Mean Corpuscular HGB CONC 32.9 g/dL (32.0-36.0); Mean Corpuscular Hemoglobin 30.1 pg (27.0-31.0); Mean Corpuscular Volume 91.4 fL (78.0-98.0); Mean Platelet Volume 10.6 fL (7.4-10.4); Platelet Count 486 10x3/uL (130-400); RBC Distribution Width 15.8 % (11.5-14.5); Red Blood Cell (RBC) Count 3.39 mill/uL (4.20-5.40)
[2024-05-13 04:34] LABS: Albumin 2.5 g/dL (3.4-4.8); Anion Gap 15 mmol/L (10-20); BUN (Urea Nitrogen) 84 mg/dL (9.8-20.1); BUN/Creatinine Ratio 20.05; Calc. Creatinine Clearance 15 mL/min (70-130); Calcium 8.4 mg/dL (7.8-10.44); Carbon Dioxide 15 mmol/L (23-31); Chloride 112 mmol/L (98-107); Estimated GFR 11; Glucose 121 mg/dL (80-115); Potassium 4.5 mmol/L (3.5-5.1); Sodium 137 mmol/L (136-145)
[2024-05-13 05:09] LABS: Anisocytosis SLIGHT = 6-15 cells HPF (0-5); Band 3 % (5-11); Eosinophils 2 % (0-10); Hypochromia SLIGHT = 6-15 cells HPF (0-5); Lymphocytes 5 % (21-51); Metamyelocyte 2 % (0-0); Monocytes 3 % (0-10); Myelocyte 1 % (0-0); Neutrophil 84 % (42-75); Platelet Adequacy Comment Platelets Increased; Polychromasia SLIGHT = 2-3 cells HPF (0-2); Target Cells SLIGHT = 2-5 cells HPF (0-1); Toxic Granulation MODERATE
[2024-05-13] MEDS: Guaifenesin DM 100-10/5 ML UDCUP PO PRN (06:13)
[2024-05-13] MEDS: Sodium Bicarbonate Tab 325 MG TAB PO SCH (20:24)
[2024-05-13] MEDS: Gabapentin 300 MG CAP PO SCH (20:24)
[2024-05-14 05:26] LABS: Hematocrit 31.4 % (36.0-47.0); Hemoglobin 10.1 g/dL (12.0-16.0); Mean Corpuscular HGB CONC 32.2 g/dL (32.0-36.0); Mean Corpuscular Hemoglobin 29.7 pg (27.0-31.0); Mean Corpuscular Volume 92.4 fL (78.0-98.0); Mean Platelet Volume 10.8 fL (7.4-10.4); Platelet Count 559 10x3/uL (130-400)
[2024-05-14 05:34] LABS: Albumin 2.7 g/dL (3.4-4.8); Anion Gap 15 mmol/L (10-20); BUN (Urea Nitrogen) 75 mg/dL (9.8-20.1); BUN/Creatinine Ratio 16.67; Calc. Creatinine Clearance 14 mL/min (70-130); Calcium 8.9 mg/dL (7.8-10.44); Carbon Dioxide 17 mmol/L (23-31); Chloride 113 mmol/L (98-107); Estimated GFR 10; Glucose 97 mg/dL (80-115); Phosphorus 5.7 mg/dL (2.3-4.7); Potassium 4.8 mmol/L (3.5-5.1); Sodium 140 mmol/L (136-145)
[2024-05-14 06:02] LABS: Anisocytosis SLIGHT = 6-15 cells HPF (0-5); Band 1 % (5-11); Eosinophils 1 % (0-10); Hypochromia SLIGHT = 6-15 cells HPF (0-5); Lymphocytes 4 % (21-51); Metamyelocyte 2 % (0-0); Monocytes 7 % (0-10); Neutrophil 85 % (42-75); Platelet Adequacy Comment Platelets Increased; Polychromasia SLIGHT = 2-3 cells HPF (0-2)
[2024-05-14] MEDS: Sodium Bicarbonate 150 MEQ in Dextrose 5% in Water 1,000 ML IV SCH (10:54)
[2024-05-15 05:24] LABS: Hematocrit 30.6 % (36.0-47.0); Hemoglobin 9.8 g/dL (12.0-16.0); Mean Corpuscular Hemoglobin 29.2 pg (27.0-31.0); Mean Corpuscular Volume 91.1 fL (78.0-98.0); Mean Platelet Volume 10.5 fL (7.4-10.4); Platelet Count 627 10x3/uL (130-400); Red Blood Cell (RBC) Count 3.36 mill/uL (4.20-5.40)
[2024-05-15 06:30] LABS: Anisocytosis SLIGHT = 6-15 cells HPF (0-5); Band 2 % (5-11); Eosinophils 1 % (0-10); Hypochromia SLIGHT = 6-15 cells HPF (0-5); Lymphocytes 9 % (21-51); Metamyelocyte 1 % (0-0); Monocytes 3 % (0-10); Myelocyte 3 % (0-0); Neutrophil 80 % (42-75); Platelet Adequacy Comment Platelets Increased; Polychromasia SLIGHT = 2-3 cells HPF (0-2); Target Cells SLIGHT = 2-5 cells HPF (0-1); Toxic Granulation SLIGHT
[2024-05-15 11:41] LABS: Potassium 4.2 mmol/L (3.5-5.1); Sodium 138 mmol/L (136-145)
[2024-05-15 11:42] LABS: Calcium 8.9 mg/dL (7.8-10.44); Chloride 106 mmol/L (98-107)
[2024-05-15 11:43] LABS: Glucose 99 mg/dL (80-115)
[2024-05-15 11:44] LABS: Anion Gap 14 mmol/L (10-20); BUN (Urea Nitrogen) 61 mg/dL (9.8-20.1); Calc. Creatinine Clearance 17 mL/min (70-130); Carbon Dioxide 24 mmol/L (23-31); Estimated GFR 13
[2024-05-15] MEDS: Melatonin 3 MG TAB PO PRN (20:21)
[2024-05-16 06:54] LABS: #Basophils 0.06 10x3/uL (0.0-0.2); %Basophils 0.4 % (0.0-1.0); %Eosinophils 1.4 % (0.0-10.0); %Lymphocytes 9.6 % (21.0-51.0); %Monocytes 7.5 % (0.0-10.0); %Neutrophils 77.6 % (42.0-75.0); Hematocrit 32.3 % (36.0-47.0); Hemoglobin 10.4 g/dL (12.0-16.0); Mean Corpuscular HGB CONC 32.2 g/dL (32.0-36.0); Mean Corpuscular Hemoglobin 30.1 pg (27.0-31.0); Mean Corpuscular Volume 93.6 fL (78.0-98.0); Mean Platelet Volume 10.2 fL (7.4-10.4); Platelet Count 635 10x3/uL (130-400); RBC Distribution Width 15.5 % (11.5-14.5); Red Blood Cell (RBC) Count 3.45 mill/uL (4.20-5.40)
[2024-05-16 07:48] LABS: Anion Gap 12 mmol/L (10-20); BUN (Urea Nitrogen) 53 mg/dL (9.8-20.1); Calc. Creatinine Clearance 18 mL/min (70-130); Calcium 8.4 mg/dL (7.8-10.44); Carbon Dioxide 32 mmol/L (23-31); Chloride 98 mmol/L (98-107); Estimated GFR 13; Glucose 112 mg/dL (80-115); Sodium 138 mmol/L (136-145)
[2024-05-16 08:31] LABS: Anion Gap 16 mmol/L (10-20); BUN (Urea Nitrogen) 53 mg/dL (9.8-20.1); Calc. Creatinine Clearance 18 mL/min (70-130); Calcium 8.5 mg/dL (7.8-10.44); Carbon Dioxide 29 mmol/L (23-31); Chloride 98 mmol/L (98-107); Estimated GFR 14; Glucose 121 mg/dL (80-115); Potassium 4.1 mmol/L (3.5-5.1); Sodium 139 mmol/L (136-145)
[2024-05-16] MEDS: Benzonatate 100 MG CAP PO PRN (08:44)
[2024-05-17 05:04] LABS: #Basophils 0.04 10x3/uL (0.0-0.2); %Basophils 0.3 % (0.0-1.0); %Eosinophils 1.7 % (0.0-10.0); %Lymphocytes 10.2 % (21.0-51.0); %Monocytes 8.6 % (0.0-10.0); %Neutrophils 77.2 % (42.0-75.0); Hematocrit 28.9 % (36.0-47.0); Hemoglobin 9.6 g/dL (12.0-16.0); Mean Corpuscular HGB CONC 33.2 g/dL (32.0-36.0); Mean Corpuscular Hemoglobin 29.6 pg (27.0-31.0); Mean Corpuscular Volume 89.2 fL (78.0-98.0); Mean Platelet Volume 10.3 fL (7.4-10.4); Platelet Count 647 10x3/uL (130-400); RBC Distribution Width 15.1 % (11.5-14.5); Red Blood Cell (RBC) Count 3.24 mill/uL (4.20-5.40)
[2024-05-17 09:17] LABS: Anion Gap 18 mmol/L (10-20); BUN (Urea Nitrogen) 42 mg/dL (9.8-20.1); Calc. Creatinine Clearance 20 mL/min (70-130); Calcium 8.8 mg/dL (7.8-10.44); Carbon Dioxide 33 mmol/L (23-31); Chloride 91 mmol/L (98-107); Estimated GFR 15; Glucose 104 mg/dL (80-115); Potassium 3.6 mmol/L (3.5-5.1); Sodium 138 mmol/L (136-145)
[2024-05-17] MEDS: Sodium Chloride 0.9% 1,000 ML IV SCH (11:18)
[2024-05-18 05:26] LABS: #Basophils 0.08 10x3/uL (0.0-0.2); %Basophils 0.5 % (0.0-1.0); %Eosinophils 1.9 % (0.0-10.0); %Lymphocytes 12.2 % (21.0-51.0); %Monocytes 8.1 % (0.0-10.0); %Neutrophils 74.3 % (42.0-75.0); Hematocrit 32.5 % (36.0-47.0); Hemoglobin 10.5 g/dL (12.0-16.0); Mean Corpuscular HGB CONC 32.3 g/dL (32.0-36.0); Mean Corpuscular Hemoglobin 29.6 pg (27.0-31.0); Mean Corpuscular Volume 91.5 fL (78.0-98.0); Platelet Count 681 10x3/uL (130-400); RBC Distribution Width 15.2 % (11.5-14.5); Red Blood Cell (RBC) Count 3.55 mill/uL (4.20-5.40)
[2024-05-18 05:46] LABS: Anion Gap 17 mmol/L (10-20); BUN (Urea Nitrogen) 38 mg/dL (9.8-20.1); Calc. Creatinine Clearance 21 mL/min (70-130); Carbon Dioxide 29 mmol/L (23-31); Chloride 98 mmol/L (98-107); Estimated GFR 16; Glucose 96 mg/dL (80-115); Potassium 4.7 mmol/L (3.5-5.1); Sodium 139 mmol/L (136-145)
[2024-05-18 06:25] LABS: Calcium 8.5 mg/dL (7.8-10.44)
[2024-05-18] MEDS: traMADol HCl 50 MG TAB PO SCH ×2 (13:11→17:29)
[2024-05-18] MEDS: guaiFENesin 200 MG TAB PO PRN (13:48)
[2024-05-18] MEDS ORDERED: traMADol HCl 50 MG TAB PO SCH (21:00)
[2024-05-19 05:59] LABS: #Basophils 0.05 10x3/uL (0.0-0.2); %Basophils 0.4 % (0.0-1.0); %Eosinophils 2.1 % (0.0-10.0); %Lymphocytes 12.8 % (21.0-51.0); %Monocytes 7.7 % (0.0-10.0); %Neutrophils 75.7 % (42.0-75.0); Hemoglobin 9.5 g/dL (12.0-16.0); Mean Corpuscular HGB CONC 31.7 g/dL (32.0-36.0); Mean Corpuscular Hemoglobin 29.2 pg (27.0-31.0); Mean Corpuscular Volume 92.3 fL (78.0-98.0); Mean Platelet Volume 10.2 fL (7.4-10.4); Platelet Count 614 10x3/uL (130-400); RBC Distribution Width 15.2 % (11.5-14.5); Red Blood Cell (RBC) Count 3.25 mill/uL (4.20-5.40)
[2024-05-19 06:21] LABS: Anion Gap 12 mmol/L (10-20); BUN (Urea Nitrogen) 36 mg/dL (9.8-20.1); Calc. Creatinine Clearance 23 mL/min (70-130); Calcium 8.5 mg/dL (7.8-10.44); Carbon Dioxide 29 mmol/L (23-31); Chloride 103 mmol/L (98-107); Estimated GFR 18; Glucose 139 mg/dL (80-115); Potassium 4.2 mmol/L (3.5-5.1); Sodium 140 mmol/L (136-145)
[2024-05-19 07:58] VITALS: BP 126/80; TEMP 98
[2024-05-19] MEDS: Aspirin 81 mg Enteric Coated Tablet PO SCH (11:27)
[2024-05-19] MEDS: Cefdinir 300 MG CAP PO SCH (13:27)
== END 2024-05-19 14:57 | disposition home or self-care (01) | DRG 872 ==
LOC: SUATTDRO 12:27 → ERS 12:27 → T4-A 15:11
PROVIDERS: ADMIT Internal Medicine; ATTEND Internal Medicine
DX: A41.51 Sepsis due to Escherichia coli [E. coli] (principal); N17.9 Acute kidney failure, unspecified; N12 Tubulo-interstitial nephritis, not specified as acute or chronic; J96.11 Chronic respiratory failure with hypoxia; E87.20 Acidosis, unspecified; E87.1 Hypo-osmolality and hyponatremia; J98.11 Atelectasis; N18.4 Chronic kidney disease, stage 4 (severe); K51.90 Ulcerative colitis, unspecified, without complications; J44.9 Chronic obstructive pulmonary disease, unspecified; G89.4 Chronic pain syndrome; M81.0 Age-related osteoporosis without current pathological fracture; Z96.612 Presence of left artificial shoulder joint; D63.1 Anemia in chronic kidney disease; R31.9 Hematuria, unspecified; R33.9 Retention of urine, unspecified; E86.0 Dehydration; E88.09 Other disorders of plasma-protein metabolism, not elsewhere classified; I12.9 Hypertensive chronic kidney disease with stage 1 through stage 4 chronic kidney disease, or unspecified chronic kidney disease; G47.33 Obstructive sleep apnea (adult) (pediatric); R25.1 Tremor, unspecified; I25.2 Old myocardial infarction; Z87.891 Personal history of nicotine dependence; Z98.51 Tubal ligation status; Z99.89 Dependence on other enabling machines and devices; Z93.2 Ileostomy status; Z88.8 Allergy status to other drugs, medicaments and biological substances; Z88.5 Allergy status to narcotic agent
CPT/HCPCS: 36415; 51701; 71045; 74176; 80048; 80053; 80069; 81001; 82306; 83605; 83880; 83970; 84145; 85025; 87077; 87086; 87186; 93005; 94640; 94664; 96374; 96375; J0696; J2272; J2405; J7030; J7042; J7070; J7620; J7644; P9047